=== PATIENT | male | born 1985 | race African-American/Black ===

== ENCOUNTER 2025-01-20 22:19 | Emergency (ER) | payer MEDICAID, OTHER ==
[~2025-01-20] VITALS: Ht 177.8 cm; Wt 104.9 kg
[2025-01-20] MEDS ORDERED: FAMOTIDINE 20 MG TAB PO ONE (23:30)
[2025-01-21 01:00] LABS: Hematocrit 39.4 % (41.0-53.0); Hemoglobin 13.9 g/dL (13.5-17.5); Mean Corpuscular Hemoglobin 33.8 pg (28.0-32.0); Mean Corpuscular Volume 95.8 fL (80.0-100.0)
[2025-01-21 01:13] LABS: Alanine Aminotransferase 48 U/L (7-40); Albumin 3.0 g/dL (3.2-4.8); Alkaline Phosphatase 103 U/L (46-116); Anion Gap 23 (5-15); BUN/Creatinine Ratio 7.2 (10.0-20.0); Bilirubin, Total 3.1 mg/dL (0.2-1.0); Blood Urea Nitrogen 63 mg/dL (9-23); Calcium 8.2 mg/dL (8.7-10.4); Carbon Dioxide 13 mmol/L (20-31); Chloride 96 mmol/L (98-107); Glucose 101 mg/dL (74-106); Potassium 3.6 mmol/L (3.5-5.1); Sodium 132 mmol/L (136-145); Total Protein 9.2 g/dL (5.7-8.2)
[2025-01-21] MEDS: SODIUM CHLORIDE 0.9% 1,000 ML IV ONE (01:21)
[2025-01-21] MEDS: FAMOTIDINE (10MG/ML) 2ML VL IV ONE (01:34)
[2025-01-21] MEDS: ONDANSETRON HCL 4 MG/2 ML VIAL IV ONE (01:35)
[2025-01-21 01:53] LABS: Total Cells Counted 100.0 (100)
--- NOTE | 2025-01-21 02:33 | ED.PDOC ---
HPI Allergic reaction HPI Comments 39-YEAR-OLD MALE PRESENTS TO THE ED CHIEF COMPLAINT RASH X5 DAYS. REPORTS ITCHINESS HAS BEEN TAKING [id number] MEDICATIONS WITH LITTLE RELIEF. PATIENT ALSO STATES DIFFICULTY URINATING. REPORTS COUNTER THE BATHROOM SEVERAL TIMES A DAY WITH ONLY LITTLE OUTPUT. HE DENIES ANY PAST SIGNIFICANT HISTORY. HE DENIES ANY PAIN. REPORTS NO FEVERS CHILLS NAUSEA OR VOMITING. Chief Complaint: Allergic Reaction Time Seen by MD: 23:03 Reviewed Notes: Nurses Notes, Medications, Allergies Allergies: Coded Allergies: NO KNOWN ALLERGIES (Unverified , 01/20/25) Home Meds No Active Prescriptions or Reported Meds Information Source: Patient Mode of Arrival: Ambulatory Past Medical History PAST MEDICAL HISTORY: Denies Surgical History: Denies all surgeries Family History Family History: Reviewed,noncontributory to illness Social History Smoker: Cigarettes, Less Than 1 Pack/Day Alcohol: Denies ETOH Use Drugs: Denies Drug Use Constitutional: denies: chills, diaphoresis, fatigue, fever, malaise, sweats, weakness, others EENTM: denies: blurred vision, double vision, ear bleeding, ear discharge, ear drainage, ear pain, ear ringing, eye pain, eye redness, hearing loss, mouth pain, mouth swelling, nasal discharge, nose bleeding, nose congestion, nose pain, photophobia, tearing, throat pain, throat swelling, voice changes, others Respiratory: denies: cough, hemoptysis, orthopnea, SOB at rest, shortness of breath, SOB with excertion, stridor, wheezing, others Cardiovascular: denies: chest pain, dizzy spells, diaphoresis, Dyspnea on exertion, edema, irregular heart beat, left arm pain, lightheadedness, palpitations, PND, syncope, others Gastrointestinal: denies: abdomen distended, abdominal pain, blood streaked bowels, constipated, diarrhea, dysphagia, difficulty swallowing, hematemesis, melena, nausea, poor appetite, poor fluid intake, rectal bleeding, rectal pain, vomiting, others Genitourinary: reports: dysuria; denies: burning, flank pain, frequency, hematuria, incontinence, penile discharge, penile sore, pain, testicle pain, testicle swelling, urgency, others Neurological: denies: dizziness, fainting, headache, left sided numbness, left sided weakness, numbness, paresthesia, pre-existing deficit, right sided nu mbness, right sided weakness, seizure, speech problems, tingling, tremors, weakness, others Musculoskeletal: denies: back pain, gout, joint pain, joint swelling, muscle pain, muscle stiffness, neck pain, others Integumetry: reports: rash; denies: bruises, change in color, change in hair/nails, dryness, laceration, lesions, lumps, wounds, others Allergic/Immunocompromised: denies: Difficulty Healing, Frequent Infections, H adriana, Itching, others Hematologic/Lymphatic: denies: anemia, blood clots, easy bleeding, easy bruising, swollen glands, others Endocrine: denies: excessive hunger, excessive sweating, excessive thirst, excessive urination, flushing, intolerance to cold, intolerance to heat, unexplained weight gain, unexplained weight loss, others Psychiatric: denies: anxiety, bipolar disorder, depression, hopeless, panic disorder, schizophrenia, sleepless, suicidal, others Physical Exam General Appearance: No Apparent Distress, Normal HEENT: Normal ENT Inspection, Pharynx Normal, TMs Normal Neck: Full Range of Motion, Non-Tender Respiratory: Chest Non-Tender, Lungs Clear, No Accessory Muscle Use, No Respiratory Distress, Normal Breath Sounds Cardiovascular: No Edema, No JVD, No Murmur, No Gallop, Normal Peripheral Pulses, Regular Rate/Rhythm Breast Exam: Deferred Gastrointestinal: No Organomegaly, Non Tender, No Pulsatile Mass, Normal Bowel Sounds, Soft Genitalia: Deferred Pelvic: Deferred Rectal: Deferred Extremities: No calf tenderness, Normal capillary refill, Normal inspection, Normal range of motion, Non-tender, No pedal edema Musculoskeletal : Apperance: Normal Neurologic: Alert, No Motor Deficits, Normal Affect, Normal Mood, No Sensory Deficits Cerebellar Function: Normal Reflexes: Normal Skin: Dry, Normal Color, Rash (DIFFUSE MACULAR RASH NO NOTED EXCORIATIONS OR OPEN LESIONS.), Warm Lymphatic: No Adenopathy Was a procedure done? Was a procedure done?: No Differential diagnosis (all) Differential Diagnosis: Anaphylaxis, Angioedema, Bronchospasm, Renal Failure X-Ray, Labs, Meds, VS Vital Signs Date Time Temp Pulse Resp B/P (MAP) Pulse Ox O2 Delivery O2 Flow Rate FiO2 01/21/25 03:15 97.8 97 16 96/63 (74) 97 97.8 01/21/25 01:21 97.6 95 16 95/51 (66) 97 97.6 01/21/25 01:21 95 16 97 Room Air 01/20/25 22:35 97.6 86 20 111/60 99 97.6 Lab Test 01/21/25 05:04 01/21/25 03:17 01/21/25 00:48 Range/Units Lactic Acid Level 4.9 *H 5.1 *H 0.4-2.0 mmol/L White Blood Count 17.3 H 4.4-10.8 10^3/uL Red Blood Count 4.12 L 4.5-5.90 10^6/uL Hemoglobin 13.9 13.5-17.5 g/dL Hematocrit 39.4 L 41.0-53.0 % Mean Corpuscular Volume 95.8 80.0-100.0 fL Mean Corpuscular Hemoglobin 33.8 H 28.0-32.0 pg Mean Corpuscular Hemoglobin Concent 35.2 32.0-36.0 g/dL Red Cell Distribution Width 14.7 H 11.8-14.3 % Platelet Count 132 L 140-450 10^3/uL Mean Platelet Volume 8.7 6.9-10.8 fL Neutrophils (%) (Auto) 37.0-80.0 % Lymphocytes (%) (Auto) 10.0-50.0 % Monocytes (%) (Auto) 0.0-12.0 % Basophils (%) (Auto) 0.0-2.0 % Neutrophils # (Auto) 1.6-8.6 10 ^3/uL Lymphocytes # (Auto) 0.4-5.4 10 ^3/uL Monocytes # (Auto) 0-1.3 10 ^3/uL Differential Total Cells Counted 100.0 100 Neutrophils % (Manual) 50 37.0-80.0 Band Neutrophils % (Manual) 0 Lymphocytes % (Manual) 26 10.0-50.0 Monocytes % (Manual) 6 0-12 Eosinophils % (Manual) 15 H 0-7 Basophils % (Manual) 0 0.0-2.0 Metamyelocytes % (manual) 2 Myelocytes % (Manual) 1 Promyelocytes % (Manual) 0 Blast Cells % (Manual) 0 Reactive Lymphocytes 0 Platelet Estimate Decreased Large Platelets Few Sodium Level 132 L 136-145 mmol/L Potassium Level 3.6 3.5-5.1 mmol/L Chloride Level 96 L 98-107 mmol/L Carbon Dioxide Level 13 L 20-31 mmol/L Anion Gap 23 H 5-15 Blood Urea Nitrogen 63 H 9-23 mg/dL Creatinine 8.71 H 0.700-1.30 mg/dL Glomerular Filtration Rate Calc 7 >90 mL/min BUN/Creatinine Ratio 7.2 L 10.0-20.0 Serum Glucose 101 74-106 mg/dL Calcium Level 8.2 L 8.7-10.4 mg/dL Total Bilirubin 3.1 H 0.2-1.0 mg/dL Aspartate Amino Transferase (AST) 69 H 13-40 U/L Alanine Aminotransferase (ALT) 48 H 7-40 U/L Alkaline Phosphatase 103 46-116 U/L Total Protein 9.2 H 5.7-8.2 g/dL Albumin 3.0 L 3.2-4.8 g/dL Microbiology Date/Time Source Procedure Growth Status 01/21/25 03:19 Blood Blood Culture - Final NO GROWTH AFTER 5 DAYS OF INCUBATION. Complete 01/21/25 03:10 Blood Blood Culture - Final NO GROWTH AFTER 5 DAYS OF INCUBATION. Complete X-Ray, Labs, Meds, VS Comment COURSE: EXTERNAL MEDICAL RECORDS REVIEWED: [NONE] INDEPENDENT HISTORIANS: [NONE] SOCIAL DETERMINANTS OF HEALTH: [NONE] LABS ORDERED: CBC, CMP, UA, UDS, BLOOD CULTURES, LACTIC ACID REVIEWED AND INTERPRETED RESULTS: PENDING UA AND UDS IMAGING ORDERED: CHEST X-RAY PENDING PROCEDURES PERFORMED: Meadows catheter no output CRITICAL CARE TIME: NONE I HAVE DISCUSSED THE PATIENT WITH THE PATIENT AND HE AGREES WITH PLAN OF CARE AND DISPOSITION. PATIENT PLACED FOR HOSPITALIST FOR ADMISSION DIAGNOSIS; ACUTE RENAL FAILURE SEPSIS LEUKOCYTOSIS Time of 1ST Reevaluation: 23:40 Reevaluation 1ST: Unchanged Time of 2ND Reevaluation: 02:32 Reevaluation 2ND: Unchanged Time of 3RD Reevaluation: 04:16 Reevaluation 3RD: Unchanged Patient Education/Counseling: Diagnosis, Treatment, Prognosis, Need For Follow Up Family Education/Counseling: No Family Present SEPSIS Sepsis Screen Date sepsis recognized/suspect: Jan 20, 2025 Time Sepsis recognized/suspect: 2239 Recent Procedure: No On Antibiotic Therapy: No Respiratory Rate >20: No Heart Rate >90: No Temp<36 C (96.8 F) or >38.3 C: No SBP <90 or MAP <65 mmHG: No New Acute Mental Status Change: No Is the patient on CPAP, BIPAP,: No Physician Orders Insert/Manage Urinary Catheter QSHIFT (01/21/25 00:40) Chest Xray 1 View (01/21/25 04:11) Vital Signs Date Time Temp Pulse Resp B/P (MAP) Pulse Ox O2 Delivery O2 Flow Rate FiO2 01/21/25 03:15 97.8 97 16 96/63 (74) 97 97.8 01/21/25 01:21 97.6 95 16 95/51 (66) 97 97.6 01/21/25 01:21 95 16 97 Room Air 01/20/25 22:35 97.6 86 20 111/60 99 97.6 Laboratory Tests Test 01/21/25 00:48 01/21/25 03:17 01/21/25 05:04 White Blood Count 17.3 10^3/uL (4.4-10.8) H Lactic Acid Level 5.1 mmol/L (0.4-2.0) *H 4.9 mmol/L (0.4-2.0) *H Departure 1 Departure Time of Disposition: 02:32 Impression: Primary Impression: Sepsis Qualified Codes: A41.9 - Sepsis, unspecified organism Additional Impressions: Leukocytosis Qualified Codes: D72.829 - Elevated white blood cell count, unspecified Acute renal failure Qualified Codes: O90.49 - Other acute kidney failure Disposition: 04 [facility] Condition: Stable e-Prescriptions No Active Prescriptions or Reported Meds Discharged With: Self Critical Care Note Critical Care Time?: No Stability Stability form required: ZAYRA Dunne Jan 21, 2025 02:33
[2025-01-21 03:15] VITALS: BP 96/63; PULSE 97; RESP 16; TEMP 97.8; O2SAT 97
[2025-01-21] MEDS ORDERED: SODIUM CHLORIDE 0.9% 1,000 ML IV ONE ×2 (03:45→04:30)
[2025-01-21 04:02] LABS: Lactic Acid w/Reflex 5.1 mmol/L (0.4-2.0)
[2025-01-21] MEDS ORDERED: VANCOMYCIN 1GM/200ML PM 200 ML IV ONE (04:15)
[2025-01-21] MEDS: cefTRIAXone 1GM/50ML D5W 50 ML IV ONE (04:34)
--- NOTE | 2025-01-21 05:07 | DVH ---
CHEST RADIOGRAPH Indication: FEVERS Technique: Single frontal view of the chest was obtained COMPARISON: None FINDINGS: Lines and Tubes: None Lungs: Clear Pleura: No effusion. No pneumothorax. Cardiomediastinal contours: Unremarkable Bones: Unremarkable IMPRESSION: 1. No acute disease.
== END 2025-01-21 07:14 | disposition left against medical advice (07) ==
LOC: ER 22:19
DX: A41.9 Sepsis, unspecified organism (principal); D72.829 Elevated white blood cell count, unspecified; N17.9 Acute kidney failure, unspecified; F17.210 Nicotine dependence, cigarettes, uncomplicated
CPT/HCPCS: 36415; 71045; 80053; 83605; 85007; 85027; 87040; 96361; 96365; 96375; 99284; J0696; J1100; J2405; J3490; J7030

== ENCOUNTER 2025-01-21 11:22 | Inpatient (IN) | payer MEDICAID ==
[~2025-01-21] VITALS: Ht 177.8 cm; Wt 103.5 kg
--- NOTE | 2025-01-21 12:16 | ED.PDOC ---
General HPI Comments 39 y/o M, WILLOW, presents to the ED for CC of urinary. Patient reports, that he has had difficulty urinating and was seen at [facility] yesterday (01/20/25) for SS and had a Meadows catheter placed. During yesterdays visit patient proceeded to cut Meadows Catheter hose off with catheter still in place then AMA'd. At this time patient c/o of additional symptoms of a sore-throat. No other symptoms or modifying factors are present at this time. Chief Complaint: Urinary Time Seen by MD: 12:13 Reviewed notes: Nurses Notes, Stranding Machine Operator Notes, Medications, Allergies Allergies: Coded Allergies: NO KNOWN ALLERGIES (Unverified , 01/20/25) Information Source: Patient, Emergency Med Personnel Mode of Arrival: EMS Severity: Moderate Timing: Days Duration: Since onset Prehospital treatment: None Onset: Spontaneous Symptoms: Inability to void History of: None Location: None Penile discharge: None Modifying factors: None associated signs and symptoms: None Past Medical History PAST MEDICAL HISTORY: Denies Surgical History: Denies all surgeries Family History Family History: Reviewed,noncontributory to illness Social History Smoker: Cigarettes, Less Than 1 Pack/Day Alcohol: Denies ETOH Use Drugs: Denies Drug Use Constitutional: denies: chills, diaphoresis, fatigue, fever, malaise, sweats, weakness, others EENTM: reports: throat pain; denies: blurred vision, double vision, ear bleeding, ear discharge, ear drainage, ear pain, ear ringing, eye pain, eye redness, hearing loss, mouth pain, mouth swelling, nasal discharge, nose bleed ing, nose congestion, nose pain, photophobia, tearing, throat swelling, voice changes, others Respiratory: denies: cough, hemoptysis, orthopnea, SOB at rest, shortness of breath, SOB with excertion, stridor, wheezing, others Cardiovascular: denies: chest pain, dizzy spells, diaphoresis, Dyspnea on exertion, edema, irregular heart beat, left arm pain, lightheadedness, palpitations, PND, syncope, others Gastrointestinal: denies: abdomen distended, abdominal pain, blood streaked bowels, constipated, diarrhea, dysphagia, difficulty swallowing, hematemesis, melena, nausea, poor appetite, poor fluid intake, rectal bleeding, rectal pain, vomiting, others Genitourinary: denies: burning, dysuria, flank pain, frequency, hematuria, incontinence, penile discharge, penile sore, pain, testicle pain, testicle sw elling, urgency, others Neurological: denies: dizziness, fainting, headache, left sided numbness, left sided weakness, numbness, paresthesia, pre-existing deficit, right sided numbness, right sided weakness, seizure, speech problems, tingling, tremors, weakness, others Musculoskeletal: denies: back pain, gout, joint pain, joint swelling, muscle pain, muscle stiffness, neck pain, others Integumetry: denies: bruises, change in color, change in hair/nails, dryness, laceration, lesions, lumps, rash, wounds, others Allergic/Immunocompromised: denies: Difficulty Healing, Frequent Infections, Hives, Itching, others Hematologic/Lymphatic: denies: anemia, blood clots, easy bleeding, easy bruising, swollen glands, others Endocrine: denies: excessive hunger, excessive sweating, excessive thirst, excessive urination, flushing, intolerance to cold, intolerance to heat, unexplained weight gain, unexplained weight loss, others Psychiatric: denies: anxiety, bipolar disorder, depression, hopeless, panic disorder, schizophrenia, sleepless, suicidal, others All Other Systems: Reviewed and Negative Physical Exam General Appearance: No Apparent Distress, Normal, Other (patient unable to form full sentences and has word salad) HEENT: Normal ENT Inspection, Pharynx Normal Neck: Full Range of Motion, Non-Tender, Normal, Normal Inspection Respiratory: Chest Non-Tender, Lungs Clear, No Accessory Muscle Use, No Respiratory Distress, Normal Breath Sounds Cardiovascular: No Edema, No Murmur, No Gallop, Normal Peripheral Pulses, Regular Rate/Rhythm Breast Exam: Deferred Gastrointestinal: No Organomegaly, Non Tender, No Pulsatile Mass, Normal Bowel Sounds, Soft Genitalia: Deferred Pelvic: Deferred Rectal: Deferred Extremities: No calf tenderness, Normal capillary refill, Normal inspection, Normal range of motion, Non-tender, No pedal edema Musculoskeletal : Apperance: Normal Neurologic: Alert, bass viol repairer II-XII nml as Tested, No Motor Deficits, Normal Affect, Normal Mood, No Sensory Deficits Cerebellar Function: Normal Reflexes: Normal Skin: Dry, Normal Color, Warm Lymphatic: No Adenopathy Was a procedure done? Was a procedure done?: No Differential Diagnosis Urinary Problem (Male): Bladder Obstruction, Urinary Retention, Urolithiasis, UTI X-Ray, Labs, Meds, VS Vital Signs Date Time Temp Pulse Resp B/P (MAP) Pulse Ox O2 Delivery O2 Flow Rate FiO2 01/21/25 11:52 98.3 99 18 106/65 96 98.3 Lab Test 01/21/25 13:17 Range/Units White Blood Count 21.8 #H 4.4-10.8 10^3/uL Red Blood Count 3.74 L 4.5-5.90 10^6/uL Hemoglobin 12.2 L 13.5-17.5 g/dL Hematocrit 35.9 L 41.0-53.0 % Mean Corpuscular Volume 96.0 80.0-100.0 fL Mean Corpuscular Hemoglobin 32.6 H 28.0-32.0 pg Mean Corpuscular Hemoglobin Concent 34.0 32.0-36.0 g/dL Red Cell Distribution Width 15.0 H 11.8-14.3 % Platelet Count 116 L 140-450 10^3/uL Mean Platelet Volume 8.9 6.9-10.8 fL Neutrophils (%) (Auto) 37.0-80.0 % Lymphocytes (%) (Auto) 10.0-50.0 % Monocytes (%) (Auto) 0.0-12.0 % Basophils (%) (Auto) 0.0-2.0 % Neutrophils # (Auto) 1.6-8.6 10 ^3/uL Lymphocytes # (Auto) 0.4-5.4 10 ^3/uL Monocytes # (Auto) 0-1.3 10 ^3/uL Differential Total Cells Counted Pending Neutrophils % (Manual) Pending Band Neutrophils % (Manual) Pending Lymphocytes % (Manual) Pending Monocytes % (Manual) Pending Eosinophils % (Manual) Pending Basophils % (Manual) Pending Metamyelocytes % (manual) Pending Myelocytes % (Manual) Pending Promyelocytes % (Manual) Pending Blast Cells % (Manual) Pending Reactive Lymphocytes Pending Platelet Estimate Pending Sodium Level Pending Potassium Level Pending Chloride Level Pending Carbon Dioxide Level Pending Anion Gap Pending Blood Urea Nitrogen Pending Creatinine Pending Glomerular Filtration Rate Calc Pending BUN/Creatinine Ratio Pending Serum Glucose Pending Calcium Level Pending [facility] [id number] [facility] [id number] Ph: [phone] DIAGNOSTIC IMAGING Diagnostic Imaging Report : [id number] Signed PATIENT: BRITTNEY WEBBERACCT: [id number] UNIT: [id number] : 1985 LOC: ER ROOM / BED: / AGE / SEX: 39 / M ADM STATUS: REG ER SERVICE 1210 ORDERING PHYSICIAN: JOSE DELANEY MD PROCEDURE(s): CXRP - CHEST PORTABLE REASON: fever ORDER NUMBER(s): [id number], ACCESSION NUMBER(s): [id number] CHEST RADIOGRAPH Indication: fever Technique: Single frontal view of the chest was obtained COMPARISON: XY CHEST XRAY 1 VIEW on DOS: 01/21/25 FINDINGS: Lines and Tubes: None Lungs: Mild congestion Pleura: No effusion. No pneumothorax. Cardiomediastinal contours: Unremarkable Bones: Unremarkable IMPRESSION: Mild increased interstitial prominence may represent mild viral pneumonia. ATED BY: JAMIE MARQUEZ MD DICTATED DATE/TIME: 01/21/251254 SIGNED BY: JAMIE MARQUEZ MD SIGNED DATE/TIME: 01/21/251254 CC: Time of 1ST Reevaluation: 12:43 Reevaluation 1ST: Unchanged Patient Education/Counseling: Diagnosis, Treatment Family Education/Counseling: No Family Present SEPSIS Sepsis Screen Date sepsis recognized/suspect: Jan 21, 2025 Time Sepsis recognized/suspect: 1120 Recent Procedure: No On Antibiotic Therapy: No Respiratory Rate >20: No Heart Rate >90: Yes Temp<36 C (96.8 F) or >38.3 C: No SBP <90 or MAP <65 mmHG: No New Acute Mental Status Change: No Is the patient on CPAP, BIPAP,: No Physician Orders Basic Metabolic Panel (01/21/25 12:10) Complete Blood Count (01/21/25 12:10) Urinalysis (01/21/25 12:10) Chest Portable (01/21/25 12:10) Manual Differential (01/21/25 13:17) Vital Signs Date Time Temp Pulse Resp B/P (MAP) Pulse Ox O2 Delivery O2 Flow Rate FiO2 01/21/25 11:52 98.3 99 18 106/65 96 98.3 Laboratory Tests Test 01/21/25 13:17 White Blood Count 21.8 10^3/uL (4.4-10.8) #H Critical Care Note Critical Care Time?: No Stability Stability form required: No Heart Score Heart Score: Heart Score Response (Comments) Value History N/A 0 EKG N/A 0 Age N/A 0 Risk Factors N/A 0 Troponin N/A 0 Total 0 I personally scribed for JOSE DELANEY MD ([email or web address]) on 01/21/25 at 12:16. Electronically submitted by Emily Mims ([employer]). I personally scribed for JOSE DELANEY MD ([email or web address]) on 01/21/25 at 12:24. Electronically submitted by Eimly Mims ([employer]). I personally scribed for JOSE DELANEY MD ([email or web address]) on 01/21/25 at 13:47. Electronically submitted by Emily Mims ([employer]). JOSE DELANEY MD Jan 21, 2025 12:16
--- NOTE | 2025-01-21 12:57 | DVH ---
CHEST RADIOGRAPH Indication: fever Technique: Single frontal view of the chest was obtained COMPARISON: XY CHEST XRAY 1 VIEW on DOS: 01/21/25 FINDINGS: Lines and Tubes: None Lungs: Mild congestion Pleura: No effusion. No pneumothorax. Cardiomediastinal contours: Unremarkable Bones: Unremarkable IMPRESSION: Mild increased interstitial prominence may represent mild viral pneumonia.
[2025-01-21 13:43] LABS: Hematocrit 35.9 % (41.0-53.0); Hemoglobin 12.2 g/dL (13.5-17.5); Mean Corpuscular Hemoglobin 32.6 pg (28.0-32.0); Mean Corpuscular Volume 96.0 fL (80.0-100.0)
[2025-01-21 13:48] LABS: Potassium 4.3 mmol/L (3.5-5.1)
[2025-01-21 13:49] LABS: Anion Gap 20 (5-15)
[2025-01-21 13:53] LABS: Calcium 7.4 mg/dL (8.7-10.4); Carbon Dioxide 14 mmol/L (20-31); Chloride 98 mmol/L (98-107); Sodium 132 mmol/L (136-145)
[2025-01-21 13:54] LABS: BUN/Creatinine Ratio 8.8 (10.0-20.0)
[2025-01-21 14:00] LABS: Glucose 141 mg/dL (74-106)
[2025-01-21 14:05] LABS: Blood Urea Nitrogen 84 mg/dL (9-23)
[2025-01-21 14:33] LABS: Nucleated Red Blood Cells % 1.0 %; Total Cells Counted 100.0 (100)
--- NOTE | 2025-01-21 15:47 | DVH ---
CT CT AB PEL WO CON-NO ORAL OR IV INDICATION: abdominal pain EXAM DATE: 01/21/2025 03:11 PM COMPARISON: None RADIATION DOSE: CTDIvol: 20.14 mGy, DLP: 1260.84 mGy*cm PROCEDURE: Helical CT images were obtained of the abdomen and pelvis without IV contrast Sagittal and coronal reconstructions are provided. ORAL CONTRAST: None. ADDITIONAL IMAGES / REFORMATS: None All C T scans at this medical facility are performed using dose modulation techniques as appropriate to a p erformed exam including the following: Automated exposure control was utilized; adjustment of the MA and/or KV according to patient size; and use of iterative reconstruction technique. FINDINGS: LUNG BASE: Normal. LIVER: Severe hepatic steatosis. GALLBLADDER AND BILIARY TREE: No calcified gallstones. Normal caliber wall. No intra- or extrahepatic biliary ductal dilation. PANCREAS: Normal. SPLEEN: Normal. BOWEL: Mild colonic diverticulosis. Normal appendix. ADRENALS: Normal. KIDNEYS AND URETER: Punctate nonobstructive left kidney stone. BLADDER: Meadows in the bladder. REPRODUCTIVE ORGANS: Normal. LYMPH NODES:No lymphadenopathy. PERITONEUM: No ascites or free air. No other fluid collection. VESSELS: Scattered atherosclerotic calcifications are noted. RETROPERITONEUM: Retroperitoneal, pelvic side wall, inguinal lymphadenopathy. ABDOMINAL WALL: Normal. BONES: Scattered osseous degenerative changes are noted. IMPRESSION: Severe hepatic steatosis. Retroperitoneal, pelvic side wall, inguinal lymphadenopathy. Lymphoma is a consideration. Punctate nonobstructive left kidney stone.
[2025-01-21] MEDS ORDERED: DOCUSATE SOD 100 MG CAP PO PRN (16:15)
[2025-01-21] MEDS ORDERED: VANCOMYCIN PER PHARMACY 0 MG IV SCH (16:15)
[2025-01-21] MEDS ORDERED: ACETAMINOPHEN 325 MG TAB PO PRN (16:15)
[2025-01-21] MEDS ORDERED: ONDANSETRON HCL 4 MG/2 ML VIAL IV PRN (16:15)
[2025-01-21] MEDS: SODIUM CHLORIDE 0.9% 1,000 ML IV ONE (16:31)
--- NOTE | 2025-01-21 17:20 | DVHHP2 ---
History of Present Illness Reason for Visit: Acute renal failure History of Present Illness The patient is a 39-year-old male who denies past medical history presented to [facility] ED with complaint of anuric, throat, and mouth pain. Patient reports he has been having difficulty urinating, seen here at [facility] yester day for same symptoms, had a Meadows catheter placed, but patient cut Meadows Catheter hose off with catheter still in place then AMA'd. Patient was seen and evaluated in the ED, laboratory data shows WBC 21.8, platelets 116, sodium 132, potassium 4.3, BUN 84, creatinine 9.56, GFR seven, glucose 141, anion gap 20, calcium 7.4, blood pressure 106/65, heart rate 99, temperature 98.3 F, O2 saturation 96% on room air. Chest x-ray revealing mild increased interstitial prominence may represent mild viral pneumonia;, abdomen/pelvis CT revealing severe hepatic steatosis, punctate nonobstructive left kidney stone; retroperitoneal, pelvic side wall, inguinal lymphadenopathy, lymphoma is a consideration. Patient was started on IV antibiotic regimen vancomycin, please see medication orders section in the computer. On my assessment, patient denied chest pain, no headache, no dizziness, no diaphoresis, no shortness of breath, no nausea, no vomiting, no fever, no chills. Patient was admitted for further evaluation and medical management. Past Medical History Denies past medical history Past Surgical History Denies all surgeries Family History Reviewed, noncontributory to the management of this case. Past Social History Patient lives at home, smokes cigarettes less than 1 pack per day, denies alcohol or illicit drugs abuse. Review of Systems Constitutional: Yes: Weakness; No: Fever, Chills, Sweats, Malaise, Other Eyes: No: Pain, Vision change, Conjunctivae inflammation, Eyelid inflammation, Other, Redness ENT: Throat pain, Other (Mouth pain); No: Ear pain, Ear discharge, Nose pain, Nose discharge, Nose congestion, Mouth pain, Mouth swelling, Throat swelling Respiratory: No: Cough, Dry, Shortness of breath, SOB with excertion, Wheezing, Hemoptysis, Pleuritic Pain, Sputum, Wheezing, Other Cardiovascular: No: Chest Pain, Palpitations, Orthopnea, Paroxysmal Noc. Dyspnea, Edema, Lt Headedness, Other Gastrointestinal: No: Nausea, Vomiting, Abdominal Pain, Diarrhea, Constipation, Melena, Hematochezia, Other Genitourinary: No Dysuria, No Frequency, No Incontinence, No Hematuria, No Retention; Other (Anuric) Musculoskeletal: No: other, neck pain, shoulder pain, arm pain, back pain, hand pain, leg pain, foot pain Skin: No: Rash, Lesions, Jaundice, Bruising, Other Neurological: No: Weakness, Numbness, Incoordination, Change in speech, Confusion, Seizures, Other Allergies: Coded Allergies: NO KNOWN ALLERGIES (Unverified , 01/20/25) Medications Current Medications Medications Dose Ordered Sig/Nghia Route Start Time Stop Time Status Last Admin Dose Admin Azithromycin 250 ml @ 125 mls/hr DAILY IV 01/22/25 10:00 Vancomycin HCl 0 ml @ 0 mls/hr UD IV 01/21/25 16:15 Multivit/Ca Carb/ B Cmplx/FA/Prenat 1 tab DAILY PO 01/22/25 10:00 Sodium Chloride 10 ml Q8HR IV 01/21/25 22:00 Acetaminophen/ Hydrocodone Bitart 1 tab Q4HP PRN PO 01/21/25 16:15 Ondansetron HCl 4 mg Q4HP PRN IV 01/21/25 16:15 Docusate Sodium 100 mg BIDPRN PRN PO 01/21/25 16:15 Acetaminophen 650 mg Q6HP PRN PO 01/21/25 16:15 Exam Vital Signs Vital Signs Date Time Temp Pulse Resp B/P (MAP) Pulse Ox O2 Delivery O2 Flow Rate FiO2 01/21/25 11:52 98.3 99 18 106/65 96 98.3 General Appearance: Alert, Oriented X3, Cooperative, No acute distress HEENT: Atraumatic, PERRLA, EOMI, Mucous membr. moist/pink Respiratory: Normal air movement, Other (Diminished breath sounds) Cardiovascular: Regular rate, Normal S1, Normal S2, No murmurs Abdominal: Normal bowel sounds, Soft, No tenderness, No hepatospenomegaly, No masses Extremities: No clubbing, No cyanosis, No edema, Normal pulses, No tenderness /swelling Skin: No rashes, No breakdown, No significant lesion Neuro: Normal speech, Normal tone, Sensation intact, Cranial nerves 3-12 NL, Reflexes 2+, Other (Generalized weakness) Psych/Mental Status: Mental status NL, Mood NL Labs/Xrays Labs Test 01/21/25 16:48 01/21/25 13:17 Range/Units White Blood Count 21.8 #H 4.4-10.8 10^3/uL Red Blood Count 3.74 L 4.5-5.90 10^6/uL Hemoglobin 12.2 L 13.5-17.5 g/dL Hematocrit 35.9 L 41.0-53.0 % Mean Corpuscular Volume 96.0 80.0-100.0 fL Mean Corpuscular Hemoglobin 32.6 H 28.0-32.0 pg Mean Corpuscular Hemoglobin Concent 34.0 32.0-36.0 g/dL Red Cell Distribution Width 15.0 H 11.8-14.3 % Platelet Count 116 L 140-450 10^3/uL Mean Platelet Volume 8.9 6.9-10.8 fL Neutrophils (%) (Auto) 37.0-80.0 % Lymphocytes (%) (Auto) 10.0-50.0 % Monocytes (%) (Auto) 0.0-12.0 % Basophils (%) (Auto) 0.0-2.0 % Neutrophils # (Auto) 1.6-8.6 10 ^3/uL Lymphocytes # (Auto) 0.4-5.4 10 ^3/uL Monocytes # (Auto) 0-1.3 10 ^3/uL Differential Total Cells Counted 100.0 100 Neutrophils % (Manual) 55 37.0-80.0 Band Neutrophils % (Manual) 3 Lymphocytes % (Manual) 15 10.0-50.0 Monocytes % (Manual) 6 0-12 Eosinophils % (Manual) 17 H 0-7 Basophils % (Manual) 0 0.0-2.0 Metamyelocytes % (manual) 0 Myelocytes % (Manual) 2 Promyelocytes % (Manual) 2 Blast Cells % (Manual) 0 Nucleated Red Blood Cells 1.0 % Reactive Lymphocytes 0 Platelet Estimate Decreased Sodium Level 132 L 136-145 mmol/L Potassium Level 4.3 3.5-5.1 mmol/L Chloride Level 98 98-107 mmol/L Carbon Dioxide Level 14 L 20-31 mmol/L Anion Gap 20 H 5-15 Blood Urea Nitrogen 84 #*H 9-23 mg/dL Creatinine 9.56 H 0.700-1.30 mg/dL Glomerular Filtration Rate Calc 7 >90 mL/min BUN/Creatinine Ratio 8.8 L 10.0-20.0 Serum Glucose 141 H 74-106 mg/dL Hemoglobin A1c 5.2 <5.7 % A1C Calcium Level 7.4 L 8.7-10.4 mg/dL PATIENT: BRITTNEY WEBBERACCT: [id number] UNIT: [id number] : 1985 LOC: ER ROOM / BED: / AGE / SEX: 39 / M ADM STATUS: REG ER SERVICE 1503 ORDERING PHYSICIAN: JOSE DELANEY MD PROCEDURE(s): ABPL - CT AB PEL WO CON-NO ORAL OR IV REASON: abdominal pain ORDER NUMBER(s): [id number], ACCESSION NUMBER(s): [id number] CT CT AB PEL WO CON-NO ORAL OR IV INDICATION: abdominal pain EXAM DATE: 01/21/2025 03:11 PM COMPARISON: None RADIATION DOSE: CTDIvol: 20.14 mGy, DLP: 1260.84 mGy*cm PROCEDURE: Helical CT images were obtained of the abdomen and pelvis without IV contrast Sagittal and coronal reconstructions are provided. ORAL CONTRAST: None. ADDITIONAL IMAGES / REFORMATS: None All CT scans at this medical facility are performed using dose modulation techniques as appropriate to a performed exam including the following: Automated exposure control was utilized; adjustment of the MA and/or KV according to patient size; and use of iterative reconstruction technique. FINDINGS: LUNG BASE: Normal. LIVER: Severe hepatic steatosis. GALLBLADDER AND BILIARY TREE: No calcified gallstones. Normal caliber wall. No intra- or extrahepatic biliary ductal dilation. PANCREAS: Normal. SPLEEN: Normal. BOWEL: Mild colonic diverticulosis. Normal appendix. ADRENALS: Normal. KIDNEYS AND URETER: Punctate nonobstructive left kidney stone. BLADDER: Meadows in the bladder. REPRODUCTIVE ORGANS: Normal. LYMPH NODES:No lymphadenopathy. PERITONEUM: No ascites or free air. No other fluid collection. VESSELS: Scattered atherosclerotic calcifications are noted. RETROPERITONEUM: Retroperitoneal, pelvic side wall, inguinal lymphadenopathy. ABDOMINAL WALL: Normal. BONES: Scattered osseous degenerative changes are noted. IMPRESSION: Severe hepatic steatosis. Retroperitoneal, pelvic side wall, inguinal lymphadenopathy. Lymphoma is a consideration. Punctate nonobstructive left kidney stone. ORDERING PHYSICIAN: JOSE DELANEY MD PROCEDURE(s): CXRP - CHEST PORTABLE REASON: fever ORDER NUMBER(s): [id number], ACCESSION NUMBER(s): [id number] CHEST RADIOGRAPH Indication: fever Technique: Single frontal view of the chest was obtained COMPARISON: XY CHEST XRAY 1 VIEW on DOS: 01/21/25 FINDINGS: Lines and Tubes: None Lungs: Mild congestion Pleura: No effusion. No pneumothorax. Cardiomediastinal contours: Unremarkable Bones: Unremarkable IMPRESSION: Mild increased interstitial prominence may represent mild viral pneumonia. SEPSIS Sepsis Screen Date sepsis recognized/suspect: Jan 21, 2025 Time Sepsis recognized/suspect: 1119 Recent Procedure: No On Antibiotic Therapy: No Respiratory Rate >20: No Heart Rate >90: Yes Temp<36 C (96.8 F) or >38.3 C: No SBP <90 or MAP <65 mmHG: No New Acute Mental Status Change: No Is the patient on CPAP, BIPAP,: No Physician Orders Urinalysis (01/21/25 12:10) Chest Portable (01/21/25 12:10) Ct Ab Pel Wo Con-No Oral Or Iv (01/21/25 15:03) Lactic Acid W/ Reflex Order (01/21/25 16:15) Azithromycin 500mg/ 250ml (Zithromax 50 (01/22/25 10:00) Vancomycin Per Pharmacy (01/21/25 16:15) B-Complex W/ C & Folic Tablet (Nephro-Vi (01/22/25 10:00) *[facility] (01/21/25 16:15) Allergies (01/21/25 16:15) Code Status (01/21/25 16:15) Renal Standard(2gna,3gk,Lopho) (01/21/25 Dinner) Sodium Chloride Lock (Saline Lock Ns) (01/21/25 22:00) Oxygen Per Hour (01/21/25 16:15) Hydrocodone-Acet 5/325mg Tab ([place] 5/32 (01/21/25 16:15) Ondansetron Hcl (Zofran) (01/21/25 16:15) Docusate Sodium Capsule (Colace Capsule) (01/21/25 16:15) Complete Blood Count (01/22/25 04:00) Comprehensive Metabolic Panel (01/22/25 04:00) Condition: Serious (01/21/25 16:15) Acetaminophen Tablet (Tylenol Tablet) (01/21/25 16:15) Bedrest With Bathroom Privileg (01/21/25 16:15) Sequential Compression Device (01/21/25 ) Vancomycin,Random (01/22/25 04:00) Vital Signs Date Time Temp Pulse Resp B/P (MAP) Pulse Ox O2 Delivery O2 Flow Rate FiO2 01/21/25 11:52 98.3 99 18 106/65 96 98.3 Laboratory Tests Test 01/21/25 13:17 01/21/25 16:48 White Blood Count 21.8 10^3/uL (4.4-10.8) #H Lactic Acid Level Pending Medications Medications Dose Ordered Sig/Nghia Route Start Time Stop Time Status Last Admin Dose Admin Sodium Chloride 1,000 ml @ 1,000 mls/hr Q1H ONCE IV 01/21/25 15:15 01/21/25 16:14 DC 01/21/25 16:31 1,000 MLS/HR Assessment/Plan Assessment/Plan Acute renal failure Leukocytosis, unspecified Electrolyte imbalance Pneumonia, unspecified organism Generalized weakness Plan 1. Admit to telemetry unit 2. Breathing treatment 3. Pain control management 4. IV antibiotic management 5. Management of fluids and electrolytes 6. Consultation for Nephrology 7. Diagnostic test abdomen/pelvis CT 8. DVT prophylaxis on SCDs 9. Repeat labs CBC, CMP in a.m. 10. Continue with current medical management 11. Treatment plan discussed with patient/mother and RN. Patient/mother verb alized understanding. Plan discussed with: Patient (/mother), Other (RN) My Orders Orders - MEMO BUSH DNP Procedure Category Date Status Time Lactic Acid W/ Reflex LAB 01/21/25 In Process Order 16:15 Azithromycin 500mg/ PHA 01/22/25 In Process 250ml (Zithromax 50 10:00 Vancomycin Per PHA 01/21/25 In Process Pharmacy 16:15 B-Complex W/ C & PHA 01/22/25 In Process Folic Tablet 10:00 *[facility] CONS 01/21/25 Transmitted -[place] 16:15 Allergies WILNER 01/21/25 In Process 16:15 Code Status CODE 01/21/25 Transmitted 16:15 Renal DIET 01/21/25 Transmitted Standard(2gna,3gk,Lopho) Dinner Sodium Chloride Lock PHA 01/21/25 In Process (Saline Lock Ns) 22:00 Oxygen Per Hour RT 01/21/25 Transmitted 16:15 Hydrocodone-Acet PHA 01/21/25 In Process 5/325mg Tab ([place] 16:15 Ondansetron Hcl PHA 01/21/25 In Process (Zofran) 16:15 Docusate Sodium PHA 01/21/25 In Process Capsule (Colace 16:15 Complete Blood Count LAB 01/22/25 Verified 04:00 Comprehensive LAB 01/22/25 Verified Metabolic Panel 04:00 Condition: Serious WILNER 01/21/25 In Process 16:15 Acetaminophen Tablet PHA 01/21/25 In Process (Tylenol Tablet) 16:15 Bedrest With Bathroom WILNER 01/21/25 In Process Privileg 16:15 Sequential WILNER 01/21/25 In Process Compression Device Vancomycin,Random LAB 01/22/25 Verified 04:00 Problem List: (1) Acute renal failure (2) Leukocytosis, unspecified (3) Electrolyte imbalance (4) Pneumonia, unspecified organism (5) Generalized weakness Date of Service: Jan 21, 2025 Billing Provider: MEMO BUSH DNP Common Visit Codes: [id number] INP/OBS CARE (HIGH) MEMO BUSH DNP Jan 21, 2025 17:20
[2025-01-21 17:27] LABS: Lactic Acid w/Reflex 2.7 mmol/L (0.4-2.0)
[2025-01-21] MEDS ORDERED: NITROGLYCERIN 0.4 MG SL TAB SL PRN (17:30)
[2025-01-21] MEDS: VANCOMYCIN 1GM/250ML KIT 250 ML IV ONE (18:05)
[2025-01-21 19:56] VITALS: PULSE 87; RESP 16; O2SAT 100
[2025-01-21 20:20] LABS: Urine Amorphous Crystal FEW /hpf (None Seen); Urine Protein, UAD 2+ (Negative)
[2025-01-21] MEDS: CALCIUM GLUC 1,000mg/50ml-NS 50 ML IV ONE (21:09)
[2025-01-21] MEDS: CEFEPIME 2GM/50ML NS 50 ML IV ONE (21:12)
[2025-01-21] MEDS: SODIUM CHLOR 0.9% PF (SALINE LOCK) 10ML VIAL/SYR IV SCH (22:03)
[2025-01-22] VITALS (8 sets, daily range): BP systolic 134–149; BP diastolic 94–99; PULSE 63–81; RESP 17–23; TEMP 97.1–98.8; O2SAT 97–99
[2025-01-22] MEDS: AZITHROMYCIN 500MG/ 250ML 250 ML IV SCH (09:38)
[2025-01-22] MEDS: B-COMPLEX W/ C & FOLIC ACID(NEPHROVITE TAB) PO SCH (09:38)
--- NOTE | 2025-01-22 10:40 | DVH ---
US KIDNEY HISTORY: Ori vs CKD, rule out hydronephorsis COMPARISON: None TECHNIQUE: Transverse and longitudinal grayscale and color doppler images were obtained of the kidney s and bladder. FINDINGS: Right kidney: Size: 12.1 cm Cortical thickness: Normal Echogenicity: Normal Stones: None Masses: None Hydronephrosis: None Ureters: Not well visualized. Other: None Left kidney: Size: 12.5 cm Cortical thickness: Normal Echogenicity: Normal Stones: 0.8 cm nonobstructive left kidney stone. Masses: None Hydronephrosis: None Ureters: Not well visualized. Other: None Bladder: Meadows. Other: None. IMPRESSION: 0.8 cm nonobstructive left kidney stone.
[2025-01-22 11:15] LABS: Alanine Aminotransferase 36 U/L (7-40); Alkaline Phosphatase 80 U/L (46-116); Anion Gap 19 (5-15); BUN/Creatinine Ratio 9.3 (10.0-20.0); Potassium 4.0 mmol/L (3.5-5.1)
[2025-01-22 11:18] LABS: Albumin 2.7 g/dL (3.2-4.8); Bilirubin, Total 2.5 mg/dL (0.2-1.0); Calcium 7.5 mg/dL (8.7-10.4); Carbon Dioxide 13 mmol/L (20-31); Chloride 97 mmol/L (98-107); Glucose 175 mg/dL (74-106); Hematocrit 33.6 % (41.0-53.0); Hemoglobin 11.6 g/dL (13.5-17.5); Mean Corpuscular Hemoglobin 33.3 pg (28.0-32.0); Mean Corpuscular Volume 97.0 fL (80.0-100.0); Sodium 129 mmol/L (136-145); Total Protein 8.8 g/dL (5.7-8.2)
[2025-01-22 11:19] LABS: Blood Urea Nitrogen 95 mg/dL (9-23); Uric Acid 19.5 mg/dL (3.7-9.2)
[2025-01-22] MEDS: SODIUM CHLORIDE 0.9% 1,000 ML IV ONE (11:40)
[2025-01-22 12:58] LABS: Total Cells Counted 100.0 (100)
--- NOTE | 2025-01-22 14:50 | DVH ---
PROCEDURE: Ultrasound-guided biopsy Procedural Personnel Attending physician(s): Brannon Lisa Fellow physician(s): None Resident physician(s): None Advanced practice provider(s): None Procedure Date (/dd/yyyy): 01/22/2025 Pre-procedure diagnosis: Lymphadenopathy Post-procedure diagnosis: Same Indication: Histopathologic diagnosis and molecular characterization Previous biopsy of same target: No Additional clinical history: None Complications: No immediate complications. IMPRESSION: Ultrasound-guided biopsy of left inguinal lymph node. Plan: Specimen(s) sent for evaluation. PROCEDURE SUMMARY: - Percutaneous US-guided core needle biopsy - Additional procedure(s): None PROCEDURE DETAILS: Pre-procedure Reference imaging for biopsy target: Ct abd/pel 01/21/25 Consent: Informed consent for the procedure including risks, benefits and alternatives was obtained a nd time-out was performed prior to the procedure. Preparation: The site was prepared and draped using maximal sterile barrier technique including cutan eous antisepsis. Anesthesia/sedation Level of anesthesia/sedation: No sedation Anesthesia/sedation administered by: Not applicable Total intra-service sedation time (minutes): 0 Imaging prior to biopsy The patient was positioned supine. Initial imaging was performed. Biopsy target: - Organ or target location: Lymph Node - Laterality: Left - Maximal diameter (cm): 3.2 Other findings: None Biopsy Local anesthesia was administered. Under US guidance, the biopsy needle was advanced to the target an d biopsy was performed. Coaxial needle: None Core needle biopsy device: Attentioince Core needle size: 18 gauge Number of core specimens: 4 Fine needle aspiration device: na Fine needle size: Not applicable Number of FNA specimens: Not applicable On-site assessment of biopsy adequacy: No Additional sampling recommendations: None Preliminary assessment of sample adequacy: Not applicable Needle removal The biopsy needle was removed and a sterile dressing was applied. Tract embolization: None Imaging following biopsy Immediate post-biopsy ultrasound was performed. Post-biopsy imaging findings: no significant hemorrhage Additional Details Additional description of procedure: None Registry event: V/3/g Device used: None Equipment details: None Unique Device Identifiers: Not available Specimens removed: Biopsy samples as detailed above Estimated blood loss (mL): Less than 10 Standardized report: [email or web address] Attestation Signer name: Brannon Lisa I attest that I was present for the entire procedure. I reviewed the stored images and agree with the report as written.
--- NOTE | 2025-01-22 15:57 | DVHPNRES ---
Progress Note Date Seen: Jan 22, 2025 Resident Creating Document: CONSTANTINO GREENWOOD RESIDENT Medical Necessity Reason Pt with a Central, PICC or Fol: Yes The following are medically ne: Kaplan Catheter Reason for kaplan catheter: Bladder Retention/Obstruc, Strict I&O Subjective Review of Systems Patient is a 39-year-old male who denies any past medical history, presented to the ED with chief complaints of inability to urinate, shortness of breath mouth crusting, pain. He reported that he had difficulty urinating and was here 2 days ago with similar symptoms and had a Kaplan catheter placed but left AMA after. Patient was started on IV antibiotic vancomycin. past surgical history; denies Family history: liver cancer in father, breast cancer in grandmother personal history: patient smokes 2 cigarettes per day, drinks socially, uses marijuana, meth in the past, patient has prior STDs 2 years ago, he has unprotected sex with 1 partner 01/22/2025 Patient seen at bedside. Patient appears alert x3, in no distress, he complained of shortness of breath, unable to pee for 5 days bleeding and crusting of his lips with pain, pruritic rash which started in his wrists and progress to his arms , and in his legs. Patient did complain of night sweats, fevers, chills since 1 week. He also complained of white discharge from his penis, Since 1 month. Patient has diffuse lymphadenopathy. STD panel was ordered, radiologist was consulted for possible lymph node biopsy. Nephrology was consulted for possible dialysis. renal ultrasound 0.8 cm nonobstructive left kidney stone. Abdominal CT shows Severe hepatic steatosis., Retroperitoneal, pelvic side wall, inguinal lymphadenopathy. Lymphoma is a consideration., Punctate nonobstructive left kidney stone. Urinalysis shows positive signs of UTI. Objective vital signs Vital Sign Date Time Temp Pulse Resp B/P (MAP) Pulse Ox O2 Delivery O2 Flow Rate FiO2 01/22/25 13:00 98.0 81 18 142/94 (110) 98 98.0 01/22/25 08:00 Room Air* 0 21 Total Intake and Output 01/21/25 01/21/25 01/22/25 15:00 23:00 07:00 Intake Total 100 ml 0 ml Balance 100 ml 0 ml medications Current Medications Medications Dose Ordered Sig/Nghia Route Start Time Stop Time Status Last Admin Dose Admin Azithromycin 250 ml @ 125 mls/hr DAILY IV 01/22/25 10:00 01/22/25 09:38 125 MLS/HR Multivit/Ca Carb/ B Cmplx/FA/Prenat 1 tab DAILY PO 01/22/25 10:00 01/22/25 09:38 1 TAB Sodium Chloride 10 ml Q8HR IV 01/21/25 22:00 01/22/25 05:51 10 ML Acetaminophen/ Hydrocodone Bitart 1 tab Q4HP PRN PO 01/21/25 16:15 Ondansetron HCl 4 mg Q4HP PRN IV 01/21/25 16:15 Docusate Sodium 100 mg BIDPRN PRN PO 01/21/25 16:15 Acetaminophen 650 mg Q6HP PRN PO 01/21/25 16:15 Nitroglycerin 0.4 mg Q5MINP PRN SL 01/21/25 17:30 Morphine Sulfate 2 mg Q30M PRN IV 01/21/25 17:30 Examination General: Patient alert and oriented in person, place and time. Patient following commands. HEENT: Normocephalic, atraumatic, moist mucous membranes, diffuse lymphadenopathy Respiratory/pulmonary: Clear lungs bilaterally, vesicular murmurs present in almost all lung mckinney, no associated crackles or wheezes. Cardiovascular: Normal heart sounds S1 and S2 with no associated murmurs Abdomen: Abdomen nondistended, there is no pain to palpation in any of the abdominal quadrants, no palpable masses. Extremities: There is no peripheral edema present at the lower extremities. Peripheral Pulses: 3+ Radial (R). 3+ Radial (L). 3+ Dorsalis pedis (R). 3+ Dorsalis pedis(L) Skin: Rashes on bilateral arms and legs, with pruritus Neurological: Intact cranial nerves with no focal neurologic deficits laboratory and microbiology Laboratory Tests 01/22/25 10:19 Test 01/22/25 10:19 Range/Units Serum Glucose 175 H 74-106 mg/dL Problem List/Assessment/Plan Problem List/Assessment/Plan # generalized lymphadenopathy due to possible lymphoma/HIV/viral syndrome # possible tumor lysis syndrome # rule out possible Kaposi sarcoma vs HIV -IR consulted for possible lymph node biopsy -azithromycin - [place] -multivitamin # sepsis due to UTI # Acute complicated UTI # 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 # Anuria # hyperuricemia # hypophosphatemia - - patient has Kaplan catheter with minimal urine - nephrology consulted for possible dialysis # rule out STI # unsafe sexual practices - ordered hepatitis-B, hepatitis-C, HIV, syphilis, CMV, EBV # polysubstance abuse disorder - patient counseled on risks of using drugs, cigarettes, alcohol for more than 17 minutes Goals of care addressed with the patient for more than 27 minutes: Full code status Case discussed with , patient and nurse Plan discussed with: Patient My Orders My Orders Orders - CONSTANTINO GREENWOOD Procedure Category Date Status Time Reticulocyte Count LAB 01/22/25 In Process 09:03 Valderrama Stain Slide LAB 01/22/25 In Process 09:03 Kidney US 01/22/25 Resulted 09:03 Urine Sodium LAB 01/22/25 Logged 09:03 Urine LAB 01/22/25 Logged Protein/Creatinine Hepatitis C Antibody LAB 01/22/25 In Process 09:03 Hepatitis B Surface LAB 01/22/25 In Process Antigen 09:03 Ebv Acute Infection LAB 01/22/25 In Process Antibodies 09:03 Chlamydia/Gc LAB 01/22/25 Verified Amplification 10:39 Date of Service: Jan 22, 2025 Billing Provider: FLOR SIMMONS MD Common Visit Codes: [id number] INP/OBS CARE(HIGH) CONSTANTINO GREENWOOD RESIDENT Jan 22, 2025 15:57 FLOR SIMMONS MD Jan 24, 2025 00:01
[2025-01-22] MEDS: ALLOPURINOL 100 MG TAB PO ONE (16:00)
[2025-01-22 16:14] LABS: Wright Stain Ready for Review
[2025-01-22 18:28] LABS: Potassium 4.3 mmol/L (3.5-5.1)
[2025-01-22 18:29] LABS: Anion Gap 19 (5-15)
[2025-01-22 18:34] LABS: BUN/Creatinine Ratio 11.9 (10.0-20.0)
[2025-01-22 19:05] LABS: Calcium 7.4 mg/dL (8.7-10.4); Carbon Dioxide 14 mmol/L (20-31); Chloride 96 mmol/L (98-107); Glucose 111 mg/dL (74-106); Sodium 129 mmol/L (136-145)
[2025-01-22 19:07] LABS: Blood Urea Nitrogen 127 mg/dL (9-23)
[2025-01-22] MEDS ORDERED: methylPREDNISolone SOD SUCC 40 MG/ML VL IV SCH (20:45)
--- NOTE | 2025-01-22 20:50 | DVHINCON2 ---
Date of service: Jan 22, 2025 Reason for Consultation MALATHI History of Present Illness 39 years male with past medical history of hypertension, noncompliance does not see any doctors does not take any medications, obesity presented with chief complaints of difficulty breathing for the past several days prior to admission and difficulty urinating, positive rash associated with itching.. He did not see any kidney doctors in the past he was here in the emergency room few days ago and signed out against medical advice and then came back now as his symptoms are worse Past Medical History As per HPI Past Surgical History Denies any Allergies: Coded Allergies: NO KNOWN ALLERGIES (Unverified , 01/20/25) Home Meds No Active Prescriptions or Reported Meds Current Medications Current Medications Medications (Trade) Dose Ordered Sig/Nghia Route PRN Reason Start Time Stop Time Status Last Admin Bumetanide 12.5 mg/Miscellaneous 50 ml @ 2 mls/hr Q24H IV 01/22/25 20:45 01/22/25 21:34 Methylprednisolone Sodium Succinate (Solu Medrol) 1,000 mg DAILY IV 01/22/25 20:45 01/24/25 10:01 UNV Methylprednisolone Sodium Succinate 1000 mg/Sodium Chloride 250 ml @ 300 mls/hr DAILY@2100 IV 01/22/25 21:00 01/23/25 09:28 DC 01/22/25 21:32 Family History: Patient reports no known family medical history. Social History Positive for smoking Review of Systems Review of systems as mentioned in HPI H&P Exam Vital Signs/I&O Vital Sign Date Time Temp Pulse Resp B/P (MAP) Pulse Ox O2 Delivery O2 Flow Rate FiO2 01/23/25 09:00 98.0 63 20 163/97 (119) 100 98.0 01/23/25 08:15 Room Air* 0 21 Intake and Output 01/22/25 01/23/25 19:00 07:00 Intake Total 250 ml 1216 ml Output Total 70 ml Balance 250 ml 1146 ml Intake Oral 850 ml IV Total 250 ml 250 ml Other 116 ml Output Urine Total 70 ml Physical Exam General-appears ill HEENT-normocephalic, no icterus, no pallor, neck supple Respiratory-fair air entry bilateral, [id number] heard, no murmurs appreciated Abdominal-soft, nontender, nondistended Musculoskeletal-positive pedal edema, no calf tenderness Genitourinary-deferred Neuro-awake alert oriented x3, Psychiatric-not agitated, cooperative, Skin diffuse rash Labs/Diagnostic Data Labs/Diagnostic Data Laboratory Tests Test 01/23/25 06:34 01/23/25 00:30 01/22/25 17:45 01/22/25 12:58 Range/Units White Blood Count 12.3 #H 4.4-10.8 10^3/uL Red Blood Count 3.39 L 4.5-5.90 10^6/uL Hemoglobin 11.3 L 13.5-17.5 g/dL Hematocrit 32.0 L 41.0-53.0 % Mean Corpuscular Volume 94.5 80.0-100.0 fL Mean Corpuscular Hemoglobin 33.3 H 28.0-32.0 pg Mean Corpuscular Hemoglobin Concent 35.3 32.0-36.0 g/dL Red Cell Distribution Width 14.9 H 11.8-14.3 % Platelet Count 71 L 140-450 10^3/uL Mean Platelet Volume 9.7 6.9-10.8 fL Neutrophils (%) (Auto) 37.0-80.0 % Lymphocytes (%) (Auto) 10.0-50.0 % Monocytes (%) (Auto) 0.0-12.0 % Basophils (%) (Auto) 0.0-2.0 % Neutrophils # (Auto) 1.6-8.6 10 ^3/uL Lymphocytes # (Auto) 0.4-5.4 10 ^3/uL Monocytes # (Auto) 0-1.3 10 ^3/uL Differential Total Cells Counted 100.0 100 Neutrophils % (Manual) 64 37.0-80.0 Band Neutrophils % (Manual) 4 Lymphocytes % (Manual) 20 10.0-50.0 Monocytes % (Manual) 7 0-12 Eosinophils % (Manual) 3 0-7 Basophils % (Manual) 0 0.0-2.0 Metamyelocytes % (manual) 1 Myelocytes % (Manual) 0 Promyelocytes % (Manual) 0 Blast Cells % (Manual) 1 Reactive Lymphocytes 0 Platelet Estimate Decreased Sodium Level 128 L 129 L 136-145 mmol/L Potassium Level 4.3 4.3 3.5-5.1 mmol/L Chloride Level 92 L 96 L 98-107 mmol/L Carbon Dioxide Level 13 L 14 L 20-31 mmol/L Anion Gap 23 H 19 H 5-15 Blood Urea Nitrogen 132 *H 127 #*H 9-23 mg/dL Creatinine 11.57 *H 10.69 *H 0.700-1.30 mg/dL Glomerular Filtration Rate Calc 5 6 >90 mL/min BUN/Creatinine Ratio 11.4 11.9 10.0-20.0 Serum Glucose 130 H 111 H 74-106 mg/dL Uric Acid 20.8 H 3.7-9.2 mg/dL Calcium Level 7.2 L 7.4 L 8.7-10.4 mg/dL Phosphorus Level 8.2 H 2.4-5.1 mg/dL Total Bilirubin 2.4 H 0.2-1.0 mg/dL Aspartate Amino Transferase (AST) 39 13-40 U/L Alanine Aminotransferase (ALT) 38 7-40 U/L Alkaline Phosphatase 73 46-116 U/L Total Protein 9.0 H 5.7-8.2 g/dL Albumin 2.6 L 3.2-4.8 g/dL Urine Creatinine 128.70 H 30.0-125.0 mg/dL Urine Protein/Creatinine Ratio 2.22 Urine Sodium 63 40-220 mmol/L Urine Total Protein 285.3 H 1-14 mg/dL Urine Opiates Screen Neg NEGATIVE Urine Fentanyl Screen Neg NEGATIVE Urine Barbiturates Screen Neg NEGATIVE Urine Phencyclidine Screen Neg NEGATIVE Urine Amphetamines Screen Neg NEGATIVE Urine Benzodiazepines Screen Neg NEGATIVE Urine Cocaine Screen Neg NEGATIVE Urine Cannabinoids Screen Neg NEGATIVE Anti-Nuclear Antibody Screen Positive H Negative Anti-Nuclear Antibody Comment Comment . Cytomegalovirus IgG Antibody <0.60 0.00-0.59 U/mL Cytomegalovirus IgM Antibody <30.0 0.0-29.9 AU/mL Test 01/22/25 10:19 01/21/25 20:01 01/21/25 16:48 01/21/25 13:17 Range/Units White Blood Count 18.4 H 21.8 #H 4.4-10.8 10^3/uL Red Blood Count 3.47 L 3.74 L 4.5-5.90 10^6/uL Hemoglobin 11.6 L 12.2 L 13.5-17.5 g/dL Hematocrit 33.6 L 35.9 L 41.0-53.0 % Mean Corpuscular Volume 97.0 96.0 80.0-100.0 fL Mean Corpuscular Hemoglobin 33.3 H 32.6 H 28.0-32.0 pg Mean Corpuscular Hemoglobin Concent 34.4 34.0 32.0-36.0 g/dL Red Cell Distribution Width 15.1 H 15.0 H 11.8-14.3 % Platelet Count 78 L 116 L 140-450 10^3/uL Mean Platelet Volume 8.9 8.9 6.9-10.8 fL Neutrophils (%) (Auto) 37.0-80.0 % Lymphocytes (%) (Auto) 10.0-50.0 % Monocytes (%) (Auto) 0.0-12.0 % Basophils (%) (Auto) 0.0-2.0 % Neutrophils # (Auto) 1.6-8.6 10 ^3/uL Lymphocytes # (Auto) 0.4-5.4 10 ^3/uL Monocytes # (Auto) 0-1.3 10 ^3/uL Differential Total Cells Counted 100.0 100.0 100 Neutrophils % (Manual) 66 55 37.0-80.0 Band Neutrophils % (Manual) 7 3 Lymphocytes % (Manual) 15 15 10.0-50.0 Monocytes % (Manual) 4 6 0-12 Eosinophils % (Manual) 6 17 H 0-7 Basophils % (Manual) 0 0 0.0-2.0 Metamyelocytes % (manual) 0 0 Myelocytes % (Manual) 0 2 Promyelocytes % (Manual) 0 2 Blast Cells % (Manual) 2 0 Reactive Lymphocytes 0 0 Platelet Estimate Decreased Decreased Erythrocyte Sedimentation Rate 86 H 0-20 mm/hr Reticulocyte Count (auto) 0.89 0.5-1.5 % Sodium Level 129 L 132 L 136-145 mmol/L Potassium Level 4.0 4.3 3.5-5.1 mmol/L Chloride Level 97 L 98 98-107 mmol/L Carbon Dioxide Level 13 L 14 L 20-31 mmol/L Anion Gap 19 H 20 H 5-15 Blood Urea Nitrogen 95 #*H 84 #*H 9-23 mg/dL Creatinine 10.23 *H 9.56 H 0.700-1.30 mg/dL Glomerular Filtration Rate Calc 6 7 >90 mL/min BUN/Creatinine Ratio 9.3 L 8.8 L 10.0-20.0 Serum Glucose 175 H 141 H 74-106 mg/dL Lactic Acid Level 1.9 2.7 *H 0.4-2.0 mmol/L Uric Acid 19.5 H 3.7-9.2 mg/dL Calcium Level 7.5 L 7.4 L 8.7-10.4 mg/dL Phosphorus Level 5.7 H 2.4-5.1 mg/dL Total Bilirubin 2.5 H 0.2-1.0 mg/dL Aspartate Amino Transferase (AST) 39 13-40 U/L Alanine Aminotransferase (ALT) 36 7-40 U/L Alkaline Phosphatase 80 46-116 U/L Lactate Dehydrogenase 511 H 120-246 U/L C-Reactive Protein High Sensitivity 10.22 H <1.0 mg/dL Total Protein 8.8 H 5.7-8.2 g/dL Albumin 2.7 L 3.2-4.8 g/dL Parathyroid Hormone (Intact) 170.4 H 18.4-80.1 pg/mL Random Vancomycin Level 16.6 H 5-10 ug/mL Plasma/Serum Blood Alcohol < 3.0 <10 mg/dL Treponema pallidum Antibody Non-reactive Negative Olivia-Centeno Virus Capsid Ag IgG Ab 82.2 H 0.0-17.9 U/mL Olivia-Centeno Virus Capsid Ag IgM Ab 48.6 H 0.0-35.9 U/mL Olivia-Centeno Early Antigen IgG Ab >600.0 H 0.0-17.9 U/mL Olivia-Centeno Virus Ab Interpret Comment . HIV (1&2) Antibody Negative Negative Urine Color Rem[place] H Yellow Urine Clarity Ex.turbid Clear Urine pH 5.5 5.0-9.0 Urine Specific Dearing 1.027 1.001-1.035 Urine Protein 2+ H Negative Urine Ketones Trace Negative Urine Blood 3+ H Negative /uL Urine Nitrite Negative Negative Urine Bilirubin 1+ Negative Urine Urobilinogen Normal Negative mg/dL Urine Leukocyte Esterase 3+ Negative /uL Urine RBC 387 0 - 3 /hpf Urine Microscopic WBC 100 H 0-3 /HPF Urine Squamous Epithelial Cells Mod <5 /hpf Urine Amorphous Crystals Few None Seen /hpf Urine Bacteria Few H None Seen /hpf Urine Hyaline Casts Few 0 - 2 /lpf Urine Mucus Few None Seen Urine Glucose 1+ H Normal mg/dL Nucleated Red Blood Cells 1.0 % Hemoglobin A1c 5.2 <5.7 % A1C Assessment Acute kidney injury---unknown etiology for now likely acute tubular necrosis however rule out glomerular pathology Sepsis-?? Pneumonia Rule out lymphoma Given lymphadenopathy status post lymph node biopsy Thrombocytopenia Hyponatremia Metabolic acidosis anion gap Hyperuricemia Paraproteinemia Hypocalcemia Hyperphosphatemia recs Check KEIRA comprehensive panel, Anca panel, anti-GBM antibody, complement level C3, C4 IV bicarb as ordered ESR CRP are high Bumex drip given low urine volumes and shortness of breath Antibiotics per primary team Steroids IV as ordered-- Patient will need renal replacement therapy for solute and volume clearance He will also need kidney biopsy for definitive diagnosis after dialysis All questions answered we will follow closely Critically ill Reviewed vital signs, lab work, imaging studies, medications, microbiology, other physician recommendations Total time spent 80 minutes More than 50% of the time spent providing direct [id number] care . Thank you for allowing me to participate in the care of your patient. Plan discussed with: Patient GAIL SANDS MD Jan 22, 2025 20:50
[2025-01-22] MEDS: SODIUM BICARB 8.4% 50Meq/50ml SYR Vial IV ONE (21:30)
[2025-01-22] MEDS: BUMETANIDE 2.5mg/10ml (0.25 mg/ml) INJ IV ONE (21:31)
[2025-01-22] MEDS: methylPREDNISolone SOD SUCC 1,000 MG in SODIUM CHL 0.9% 250 ML IV SCH (21:32)
[2025-01-22] MEDS: BUMETANIDE INJECTION 12.5 MG in GIVE UN-DILUTED 0 ML IV SCH (21:34)
[2025-01-23] VITALS (13 sets, daily range): BP systolic 150–181; BP diastolic 89–107; PULSE 59–78; RESP 13–22; TEMP 97.5–98.4; O2SAT 97–100
[2025-01-23 06:07] LABS: EBV Ab VCA IgG Antibody 82.2 U/mL (0.0-17.9); EBV Ab VCA IgM Antibody 48.6 U/mL (0.0-35.9); EBV Early Antigen IgG Antibody >600.0 U/mL (0.0-17.9)
[2025-01-23 07:21] LABS: Hematocrit 32.0 % (41.0-53.0); Hemoglobin 11.3 g/dL (13.5-17.5); Mean Corpuscular Hemoglobin 33.3 pg (28.0-32.0); Mean Corpuscular Volume 94.5 fL (80.0-100.0)
[2025-01-23 07:31] LABS: Alanine Aminotransferase 38 U/L (7-40); Alkaline Phosphatase 73 U/L (46-116); Anion Gap 23 (5-15); BUN/Creatinine Ratio 11.4 (10.0-20.0); Potassium 4.3 mmol/L (3.5-5.1)
[2025-01-23 07:35] LABS: Carbon Dioxide 13 mmol/L (20-31); Chloride 92 mmol/L (98-107); Glucose 130 mg/dL (74-106); Sodium 128 mmol/L (136-145)
[2025-01-23 07:37] LABS: Albumin 2.6 g/dL (3.2-4.8); Bilirubin, Total 2.4 mg/dL (0.2-1.0); Blood Urea Nitrogen 132 mg/dL (9-23); Calcium 7.2 mg/dL (8.7-10.4); Total Protein 9.0 g/dL (5.7-8.2)
[2025-01-23 08:50] LABS: Uric Acid 20.8 mg/dL (3.7-9.2)
[2025-01-23 09:16] LABS: Amphetamine Screen, Urine Neg (NEGATIVE); Barbiturate Scree,Urine Neg (NEGATIVE); Benzodiazephine Screen, Urine Neg (NEGATIVE); Cannabinoid Screen, Urine Neg (NEGATIVE); Cocaine Screen, Urine Neg (NEGATIVE); Opiate Scree,Urine Neg (NEGATIVE); Phencyclidine Screen, Urine Neg (NEGATIVE)
[2025-01-23] MEDS: HYDROcodone-ACET 5/325MG TAB PO PRN (09:51)
[2025-01-23 10:08] LABS: Protein, Urine 285.3 mg/dL (1-14)
[2025-01-23 11:10] LABS: Total Cells Counted 100.0 (100)
[2025-01-23] MEDS: LIDOCAINE 2%HCL (LOCAL ANESTH.) INJ 20ML MDV ONE (12:50)
[2025-01-23] MEDS: HEPARIN SODIUM (PORCINE) 5000 UNITS/ML 1ML VIAL ONE (12:52)
[2025-01-23 13:07] LABS: Anti-Nuclear Antibody Direct Positive (Negative)
--- NOTE | 2025-01-23 13:26 | DVHPN2 ---
Progress Note Date Seen: Jan 23, 2025 Medical Necessity Reason Pt with a Central, PICC or Fol: Yes The following are medically ne: Kaplan Catheter Reason for kaplan catheter: Bladder Retention/Obstruc, Strict I&O Subjective Patient reports: Other Review of Systems: HEENT:Normal, CVS:Normal, RESPIRATORY:Abnormal, GI:Normal, :Normal, MSK:Abnormal, NEURO:Normal Objective vital signs Vital Sign Date Time Temp Pulse Resp B/P (MAP) Pulse Ox O2 Delivery O2 Flow Rate FiO2 01/23/25 09:00 98.0 63 20 163/97 (119) 100 98.0 01/23/25 08:15 Room Air* 0 21 Total Intake and Output 01/22/25 01/22/25 01/23/25 15:00 23:00 07:00 Intake Total 250 ml 600 ml 616 ml Output Total 70 ml Balance 250 ml 600 ml 546 ml medications Current Medications Medications Dose Ordered Sig/Nghia Route Start Time Stop Time Status Last Admin Dose Admin Azithromycin 250 ml @ 125 mls/hr DAILY IV 01/22/25 10:00 01/23/25 09:51 Multivit/Ca Carb/ B Cmplx/FA/Prenat 1 tab DAILY PO 01/22/25 10:00 01/22/25 09:38 Sodium Chloride 10 ml Q8HR IV 01/21/25 22:00 01/23/25 06:21 Acetaminophen/ Hydrocodone Bitart 1 tab Q4HP PRN PO 01/21/25 16:15 01/23/25 09:51 Ondansetron HCl 4 mg Q4HP PRN IV 01/21/25 16:15 Docusate Sodium 100 mg BIDPRN PRN PO 01/21/25 16:15 Acetaminophen 650 mg Q6HP PRN PO 01/21/25 16:15 Nitroglycerin 0.4 mg Q5MINP PRN SL 01/21/25 17:30 Morphine Sulfate 2 mg Q30M PRN IV 01/21/25 17:30 Bumetanide 12.5 mg/Miscellaneous 50 ml @ 2 mls/hr Q24H IV 01/22/25 20:45 01/22/25 21:34 Methylprednisolone Sodium Succinate 1,000 mg DAILY IV 01/22/25 20:45 01/24/25 10:01 UNV Examination: GENERAL:Abnormal, HEENT:Normal, NECK:Normal, LUNGS:Normal, CVS:Normal, ABDOMEN:Normal, MSK:Abnormal, SKIN:Abnormal, NEURO:Normal, :Normal laboratory and microbiology Laboratory Tests 01/23/25 06:34 Test 01/23/25 06:34 Range/Units Serum Glucose 130 H 74-106 mg/dL Microbiology Date/Time Source Procedure Growth Status 01/22/25 10:19 Blood Blood Culture - Preliminary NO GROWTH AFTER 24 HOURS OF INCUBATION. Resulted Problem List/Assessment/Plan Problem List/Assessment/Plan Acute kidney injury---unknown etiology for now likely acute tubular necrosis however rule out glomerular pathology//questionable tumor lysis syndrome in differential Sepsis-?? Pneumonia Rule out lymphoma Given lymphadenopathy status post lymph node biopsy Thrombocytopenia Hyponatremia Metabolic acidosis anion gap Hyperuricemia Paraproteinemia Hypocalcemia Hyperphosphatemia recs Check NELY comprehensive panel, Anca panel, anti-GBM antibody, complement level C3, C4,myeloma panel IV bicarb as ordered ESR CRP are high Bumex drip given low urine volumes and shortness of breath Antibiotics per primary team Steroids IV as ordered--for 3 days Patient will need renal replacement therapy for solute and volume clearance He will also need kidney biopsy for definitive diagnosis after dialysis All questions answered we will follow closely Critically ill IR guided tunneled catheter//dialysis after catheter placement Recommend Heme-Onc consult Recommend ID consult If NELY panel comes back positive he will need rheumatology consult as well Plan discussed with: Patient My Orders My Orders Orders - GAIL SANDS MD Procedure Category Date Status Time Nely; Comprehensive LAB 01/23/25 In Process Panel 04:00 Anca Panel LAB 01/23/25 In Process 04:00 Complement C3 & C4 LAB 01/23/25 In Process 04:00 Immunofixation Serum LAB 01/23/25 In Process 04:00 Protein LAB 01/23/25 In Process Electrophoresis Serum 04:00 [place] Lambda Lite LAB 01/23/25 In Process Chain Free S 04:00 * Radiologist Consult CONS 01/22/25 Transmitted 20:37 Give Un-Diluted PHA 01/22/25 In Process (Gi... W/Bumetanide 20:45 Antiglomerular Bm LAB 01/23/25 In Process Antibody 04:00 Hemodialysis Orders ORDERS 01/23/25 Transmitted 04:00 Communication Order ORDERS 01/23/25 Transmitted 09:30 Dietary Evaluation Review Comments: Nutrition Recommendation: 1) Continue current POC 2) Monitor PO intake, lab values, weight trend, and I/O Expected Outcomes/Goals: To meet >75% estimated needs Lab values to improve Fu 3-5 days Critical Care Time (mins): 45 GAIL SANDS MD Jan 23, 2025 13:26
--- NOTE | 2025-01-23 14:46 | DVH ---
XY Insertion of Venous Cath, HISTORY: HD CATH PL due to ESRD PROCEDURE: Informed consent was obtained. The patient was placed supine on the interventional table. A limited localization ultrasound of the right neck base was obtained. The right neck base and upper chest were prepped with chlorhexidine which was allowed to dry and draped in the usual sterile fashio n. Time out was performed. IV sedation was administered. The skin and the soft tissues were infiltrat ed with 1% Lidocaine. With real-time ultrasound guidance, the internal jugular vein was accessed with a micropuncture kit, and an image documenting patency was recorded to PACS. A subcutaneous tunneled tract was created from the right upper chest to the venotomy site. A 14.5 Norwegian Reeder Path, 19 cm lo ng hemodialysis catheter was advanced through the tunneled tract. Fluoroscopy was used to advance a guidewire through the internal jugular vein into the inferior vena cava. Following serial dilatation, a 15 Norwegian peel-away sheath was introduced, though which was adva nced the catheter into the right atrium. The catheter tip position was confirmed with fluoroscopy. Th ere was satisfactory flow in both lumens. The catheter lumens were flushed with saline and heparin wa s left indwelling in the catheter. A post-procedure image of the chest was obtained. The neck incisio n site was closed with Dermabond and dressed sterilely. The catheter was sutured at the skin surface and exit site also dressed sterilely. No immediate complication was identified. 18 mGy FLUOROSCOPY TIME: 1.5 minutes. SEDATION: Dr. Mellisa Gomez was personally responsible for the administration of moderate sedation during the procedure performed, including the use of an independent trained observer who had no other duties during the procedure. The drugs utilized were IV fentanyl and versed (see nursing log for details). The total time of supervision by the attending physician was approximately 30 minutes. FINDINGS: Widely patent right IJV. Post procedure image demonstrates smooth course of the hemodialysi s catheter with the tip in the right atrium. IMPRESSION: Placement of 14.5 jordanian Reeder Path, 19 cm long hemodialysis catheter through right internal jugular vein. Plan: Please contact IR for removal when no longer needed.
[2025-01-23 15:07] LABS: Anti-dsDNA Antibody 4 IU/mL (0-9); Sjogren's Anti-SS-A Antibody <0.2 AI (0.0-0.9); Sjogren's Anti-SS-B Antibody <0.2 AI (0.0-0.9)
--- NOTE | 2025-01-23 15:24 | MEDREC ---
[facility] Intervention Section I [facility] Intervention: Review courses of therapy (PLEASE CONSIDER ADDING CEFTRIAXONE FOR POSSIBLE UTI) SALVATORE WANG PHARMACIST Jan 23, 2025 15:24
--- NOTE | 2025-01-23 15:43 | DVH ---
EXAM: CT CHEST WITHOUT CONTRAST History: evaluate infiltrate Comparison Study: XY CHEST PORTABLE on DOS: 01/21/25, XY CHEST XRAY 1 VIEW on DOS: 01/21/25 TECHNIQUE: Multidetector CT of the chest was performed. Imaging was performed without IV contrast. Ax ial, coronal, and sagittal multiplanar reformats were obtained from the axial data set by the technol ogneal. Radiation Dose : CTDI vol 17.03 mGy, DLP 17.03 mGy*cm. Findings: Lungs: The lungs are clear. Pleura: Unremarkable Heart/Great vessels: No cardiomegaly or pericardial effusion. Mediastinum: Multiple prominent mediastinal nodes. Soft tissues/Bones: Moderate degenerative changes of the midthoracic spine. Multiple enlarged bilat eral axillary nodes. Multiple prominent retroperitoneal nodes. Hepatic steatosis. Splenomegaly. Impression: 1. No acute cardiopulmonary disease. 2. Multiple prominent bilateral axillary, mediastinal, and retroperitoneal nodes with splenomegaly. Findings are concerning for lymphoma. Recommend tissue sampling and PET-CT for further evaluation. Of note, the bilateral axillary nodes are amenable to biopsy.
--- NOTE | 2025-01-23 20:12 | DVHPNRES ---
Progress Note Date Seen: Jan 23, 2025 Resident Creating Document: CONSTANTINO GREENWOOD RESIDENT Medical Necessity Reason Pt with a Central, PICC or Fol: Yes The following are medically ne: Kaplan Catheter Reason for kaplan catheter: Bladder Retention/Obstruc, Strict I&O Subjective Review of Systems Patient is a 39-year-old male who denies any past medical history, presented to the ED with chief complaints of inability to urinate, shortness of breath mouth crusting, pain. He reported that he had difficulty urinating and was here 2 days ago with similar symptoms and had a Kaplan catheter placed but left AMA after. Patient was started on IV antibiotic vancomycin. past surgical history; denies Family history: liver cancer in father, breast cancer in grandmother personal history: patient smokes 2 cigarettes per day, drinks socially, uses marijuana, meth in the past, patient has prior STDs 2 years ago, he has unprotected sex with 1 partner 01/22/2025 Patient seen at bedside. Patient appears alert x3, in no distress, he complained of shortness of breath, unable to pee for 5 days bleeding and crusting of his lips with pain, pruritic rash which started in his wrists and progress to his arms , and in his legs. Patient did complain of night sweats, fevers, chills since 1 week. He also complained of white discharge from his penis, Since 1 month. Patient has diffuse lymphadenopathy. STD panel was ordered, radiologist was consulted for possible lymph node biopsy. Nephrology was consulted for possible dialysis. renal ultrasound 0.8 cm nonobstructive left kidney stone. Abdominal CT shows Severe hepatic steatosis., Retroperitoneal, pelvic side wall, inguinal lymphadenopathy. Lymphoma is a consideration., Punctate nonobstructive left kidney stone. Urinalysis shows positive signs of UTI. 01/23/25 patient seen at bedside. Patient appears alert x3, social service consult was placed for transfer to higher level of care for acute leukemia, lymphoma treatment. A tunnel catheter was placed for dialysis today and bled. lymph node biopsy was done. Patient was started on allopurinol 100 mg p.o., rasburicase IV b.i.d. Objective vital signs Vital Sign Date Time Temp Pulse Resp B/P (MAP) Pulse Ox O2 Delivery O2 Flow Rate FiO2 01/23/25 16:55 97.5 72 22 158/107 (124) 100 97.5 01/23/25 08:15 Room Air* 0 21 Total Intake and Output 01/22/25 01/22/25 01/23/25 15:00 23:00 07:00 Intake Total 250 ml 600 ml 616 ml Output Total 70 ml Balance 250 ml 600 ml 546 ml medications Current Medications Medications Dose Ordered Sig/Nghia Route Start Time Stop Time Status Last Admin Dose Admin Multivit/Ca Carb/ B Cmplx/FA/Prenat 1 tab DAILY PO 01/22/25 10:00 01/22/25 09:38 1 TAB Sodium Chloride 10 ml Q8HR IV 01/21/25 22:00 01/23/25 06:21 10 ML Acetaminophen/ Hydrocodone Bitart 1 tab Q4HP PRN PO 01/21/25 16:15 01/23/25 09:51 1 TAB Ondansetron HCl 4 mg Q4HP PRN IV 01/21/25 16:15 Docusate Sodium 100 mg BIDPRN PRN PO 01/21/25 16:15 Acetaminophen 650 mg Q6HP PRN PO 01/21/25 16:15 Nitroglycerin 0.4 mg Q5MINP PRN SL 01/21/25 17:30 Morphine Sulfate 2 mg Q30M PRN IV 01/21/25 17:30 Bumetanide 12.5 mg/Miscellaneous 50 ml @ 2 mls/hr Q24H IV 01/22/25 20:45 01/22/25 21:34 2 MLS/HR Methylprednisolone Sodium Succinate 1,000 mg DAILY IV 01/22/25 20:45 01/24/25 10:01 UNV Amlodipine Besylate 10 mg DAILY PO 01/24/25 10:00 Losartan Potassium 75 mg DAILY PO 01/24/25 10:00 Allopurinol 100 mg DAILY PO 01/24/25 10:00 Future Hold Rasburicase 5 mg/ Sodium Chloride 50 ml @ 50 mls/hr BID IV 01/24/25 10:00 Future Hold Ceftriaxone Sodium 50 ml @ 100 mls/hr DAILY@09 IV 01/24/25 09:00 Examination General: Patient alert and oriented in person, place and time. Patient following commands. HEENT: Normocephalic, atraumatic, moist mucous membranes, mouth leading, dark in color , diffuse lymphadenopathy Respiratory/pulmonary: Clear lungs bilaterally, vesicular murmurs present in almost all lung mckinney, no associated crackles or wheezes. Cardiovascular: Normal heart sounds S1 and S2 with no associated murmurs Abdomen: Abdomen nondistended, there is no pain to palpation in any of the abdominal quadrants, no palpable masses. Extremities: There is no peripheral edema present at the lower extremities. Peripheral Pulses: 3+ Radial (R). 3+ Radial (L). 3+ Dorsalis pedis (R). 3+ Dorsalis pedis(L) Skin: Rashes on bilateral arms and legs, with pruritus Neurological: Intact cranial nerves with no focal neurologic deficits laboratory and microbiology Laboratory Tests 01/23/25 06:34 Test 01/23/25 06:34 Range/Units Serum Glucose 130 H 74-106 mg/dL Microbiology Date/Time Source Procedure Growth Status 01/22/25 10:19 Blood Blood Culture - Preliminary NO GROWTH AFTER 24 HOURS OF INCUBATION. Resulted Problem List/Assessment/Plan Problem List/Assessment/Plan # generalized lymphadenopathy due to possible lymphoma/HIV/viral syndrome # possible tumor lysis syndrome # rule out possible Kaposi sarcoma vs HIV -IR consulted for possible lymph node biopsy -lymph node biopsy done -azithromycin - [place] -multivitamin # sepsis due to UTI # Acute complicated UTI # 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 # Anuria # hyperuricemia # hypophosphatemia - - patient has Kaplan catheter with minimal urine - nephrology consulted for possible dialysis - social service consulted for higher level of care - tunnel catheter placed for dialysis # rule out STI # unsafe sexual practices - ordered hepatitis-B, hepatitis-C, syphilis, CMV, EBV - HIV negative - EBV antibody positive # polysubstance abuse disorder - patient counseled on risks of using drugs, cigarettes, alcohol for more than 17 minutes Goals of care addressed with the patient for more than 27 minutes: Full code status Case discussed with , patient and nurse Plan discussed with: Patient My Orders My Orders Orders - CONSTANTINO GREENWOOD RESIDENT Procedure Category Date Status Time Discontinue Tele WILNER 01/23/25 In Process 11:50 Insertion Of Venous XY 01/23/25 Resulted Cath 13:31 Dietary Evaluation Review Comments: Nutrition Recommendation: 1) Continue current POC 2) Monitor PO intake, lab values, weight trend, and I/O Expected Outcomes/Goals: To meet >75% estimated needs Lab values to improve Fu 3-5 days Date of Service: Jan 23, 2025 Billing Provider: FLOR SIMMONS MD Common Visit Codes: [id number] INP/OBS CARE(HIGH) CONSTANTINO GREENWOOD RESIDENT Jan 23, 2025 20:12 FLOR SIMMONS MD Jan 24, 2025 00:01
[2025-01-23] MEDS: methylPREDNISolone SOD SUCC 1,000 MG in SODIUM CHL 0.9% 250 ML IV ONE (21:58)
[2025-01-23] MEDS: ALLOPURINOL 100 MG TAB PO ONE (22:06)
[2025-01-23 23:56] LABS: Fibrinogen 180.0 mg/dL (177-375); INR 1.93 (0.9-1.15); Partial Thromboplastin Time 33.2 SEC (24.5-34.5); Prothrombin Time 19.2 sec (9.3-11.8)
[2025-01-24] VITALS (8 sets, daily range): BP systolic 127–190; BP diastolic 90–123; PULSE 59–86; RESP 17–20; TEMP 97.7–97.9; O2SAT 96–100
[2025-01-24] MEDS: cefTRIAXone 1GM/50ML D5W 50 ML IV ONE (01:49)
[2025-01-24] MEDS: SODIUM BICARB 8.4% 50Meq/50ml SYR Vial IV ONE (02:03)
[2025-01-24] MEDS: SODIUM BICARB 8.4% 50Meq/50ml SYR INJ ONE (02:04)
[2025-01-24] MEDS: LOSARTAN POTASSIUM 25 MG TAB PO ONE (02:15)
[2025-01-24] MEDS: SODIUM BICARB 50mEq/50ml Vial 150 ML in D5W 5% 1,000 ML IV ONE (02:16)
[2025-01-24] MEDS: HYDROcodone-ACET 5/325MG TAB PO PRN (03:43)
[2025-01-24 05:08] LABS: Immunoglobulin A 526 mg/dL (90-386); Immunoglobulin G, Serum 4963 mg/dL (603-1613); Immunoglobulin M 121 mg/dL (20-172)
[2025-01-24] MEDS: MORPHINE SULFATE INJ 2 MG/ml SYRG IV PRN (05:53)
[2025-01-24 07:07] LABS: Kappa Lite Chain Free Serum 787.7 mg/L (3.3-19.4)
[2025-01-24] MEDS ORDERED: RASBURICASE IV SCH (10:00)
[2025-01-24] MEDS ORDERED: SODIUM CHL 0.9% IV SCH (10:00)
--- NOTE | 2025-01-24 11:11 | DVHPNRES ---
Progress Note Date Seen: Jan 24, 2025 Resident Creating Document: CONSTANTINO GREENWOOD RESIDENT Medical Necessity Reason Pt with a Central, PICC or Fol: Yes The following are medically ne: Kaplan Catheter Reason for kaplan catheter: Bladder Retention/Obstruc, Strict I&O Subjective Review of Systems Patient is a 39-year-old male who denies any past medical history, presented to the ED with chief complaints of inability to urinate, shortness of breath mouth crusting, pain. He reported that he had difficulty urinating and was here 2 days ago with similar symptoms and had a Kaplan catheter placed but left AMA after. Patient was started on IV antibiotic vancomycin. past surgical history; denies Family history: liver cancer in father, breast cancer in grandmother personal history: patient smokes 2 cigarettes per day, drinks socially, uses marijuana, meth in the past, patient has prior STDs 2 years ago, he has unprotected sex with 1 partner 01/22/2025 Patient seen at bedside. Patient appears alert x3, in no distress, he complained of shortness of breath, unable to pee for 5 days bleeding and crusting of his lips with pain, pruritic rash which started in his wrists and progress to his arms , and in his legs. Patient did complain of night sweats, fevers, chills since 1 week. He also complained of white discharge from his penis, Since 1 month. Patient has diffuse lymphadenopathy. STD panel was ordered, radiologist was consulted for possible lymph node biopsy. Nephrology was consulted for possible dialysis. renal ultrasound 0.8 cm nonobstructive left kidney stone. Abdominal CT shows Severe hepatic steatosis., Retroperitoneal, pelvic side wall, inguinal lymphadenopathy. Lymphoma is a consideration., Punctate nonobstructive left kidney stone. Urinalysis shows positive signs of UTI. 01/23/25 patient seen at bedside. Patient appears alert x3, social service consult was placed for transfer to higher level of care for acute leukemia, lymphoma treatment. A tunnel catheter was placed for dialysis today and bled. lymph node biopsy was done. Patient was started on allopurinol 100 mg p.o., rasburicase IV b.i.d. 01/24/25 Patient seen At bedside. Patient is very tired, appeared confused, complains of abdominal pain. Kaplan catheter showed blood in the urine. Patients mouth appears black, is bleeding in the gums and tongue. patient underwent dialysis, patient was started on tamsulosin 0.[address] shows Multiple prominent bilateral axillary, mediastinal, and retroperitoneal nodes with splenomegaly. Findings are concerning for lymphoma. Recommend tissue sampling and PET-CT for further evaluation. social service was consulted for higher level of care, and stated that I [facility] declined to provide Auth for transfer. Objective vital signs Vital Sign Date Time Temp Pulse Resp B/P (MAP) Pulse Ox O2 Delivery O2 Flow Rate FiO2 01/24/25 09:21 86 18 127/98 (108) 01/24/25 08:00 96 Room Air* 0 21 01/24/25 05:00 97.7 97.7 Total Intake and Output 01/23/25 01/23/25 01/24/25 15:00 23:00 07:00 Intake Total 0 ml Output Total 750 ml 1500 ml Balance -750 ml -1500 ml medications Current Medications Medications Dose Ordered Sig/Nghia Route Start Time Stop Time Status Last Admin Dose Admin Multivit/Ca Carb/ B Cmplx/FA/Prenat 1 tab DAILY PO 01/22/25 10:00 01/22/25 09:38 1 TAB Sodium Chloride 10 ml Q8HR IV 01/21/25 22:00 01/24/25 06:18 10 ML Ondansetron HCl 4 mg Q4HP PRN IV 01/21/25 16:15 Docusate Sodium 100 mg BIDPRN PRN PO 01/21/25 16:15 Acetaminophen 650 mg Q6HP PRN PO 01/21/25 16:15 Nitroglycerin 0.4 mg Q5MINP PRN SL 01/21/25 17:30 Morphine Sulfate 2 mg Q30M PRN IV 01/21/25 17:30 01/24/25 05:53 2 MG Bumetanide 12.5 mg/Miscellaneous 50 ml @ 2 mls/hr Q24H IV 01/22/25 20:45 01/23/25 21:59 2 MLS/HR Methylprednisolone Sodium Succinate 1,000 mg DAILY IV 01/22/25 20:45 01/24/25 10:01 UNV Amlodipine Besylate 10 mg DAILY PO 01/24/25 10:00 Losartan Potassium 75 mg DAILY PO 01/24/25 10:00 Allopurinol 100 mg HS PO 01/24/25 22:00 Future hold Rasburicase 5 mg/ Sodium Chloride 50 ml @ 50 mls/hr BID IV 01/24/25 10:00 Hold Ceftriaxone Sodium 50 ml @ 100 mls/hr DAILY@09 IV 01/24/25 09:00 Acetaminophen/ Hydrocodone Bitart 1 tab Q4HP PRN PO 01/24/25 03:45 01/24/25 03:43 1 TAB Examination General: Patient alert and oriented in person, place and time. Patient following commands. HEENT: Normocephalic, atraumatic, moist mucous membranes, mouth leading, dark in color , diffuse lymphadenopathy Respiratory/pulmonary: Clear lungs bilaterally, vesicular murmurs present in almost all lung mckinney, no associated crackles or wheezes. Cardiovascular: Normal heart sounds S1 and S2 with no associated murmurs Abdomen: Abdomen nondistended, there is no pain to palpation in any of the abdominal quadrants, no palpable masses. Extremities: There is no peripheral edema present at the lower extremities. Peripheral Pulses: 3+ Radial (R). 3+ Radial (L). 3+ Dorsalis pedis (R). 3+ Dorsalis pedis(L) Skin: Rashes on bilateral arms and legs, with pruritus Neurological: Intact cranial nerves with no focal neurologic deficits laboratory and microbiology Laboratory Tests 01/23/25 06:34 Test 01/23/25 06:34 Range/Units Serum Glucose 130 H 74-106 mg/dL Microbiology Date/Time Source Procedure Growth Status 01/22/25 10:19 Blood Blood Culture - Preliminary NO GROWTH AFTER 48 HOURS OF INCUBATION. 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 Findings are concerning for lymphoma. -ceftriaxone - [place] -multivitamin # sepsis due to UTI # Acute complicated UTI # 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 # Anuria # hyperuricemia # hyperphosphatemia #Thrombocytopenia #Hyponatremia #Metabolic acidosis anion gap #Paraproteinemia #Hypocalcemia - KEIRA positive - patient has Kaplan catheter with minimal urine - nephrology consulted for possible dialysis - social service consulted for higher level of care - tunnel catheter placed for dialysis - patient given tamsulosin 0.4 mg p.o. # rule out STI # unsafe sexual practices - ordered hepatitis-B, hepatitis-C, syphilis, CMV, EBV - HIV negative - EBV antibody positive # polysubstance abuse disorder - patient counseled on risks of using drugs, cigarettes, alcohol for more than 17 minutes PUD PPX: Protonix 40 mg DVT PPX: Not Indicated Goals of care addressed with the patient for more than 27 minutes: Full code status Case discussed with , patient and nurse Plan discussed with: Patient, Other (RN) My Orders My Orders Orders - CONSTANTINO GREENWOOD Procedure Category Date Status Time Discontinue Tele WILNER 01/23/25 In Process 11:50 Insertion Of Venous XY 01/23/25 Resulted Cath 13:31 Complete Blood Count LAB 01/24/25 Logged 04:00 Basic Metabolic Panel LAB 01/24/25 Logged 04:00 Phosphorus LAB 01/24/25 Logged 09:17 Uric Acid LAB 01/24/25 Logged 09:17 Lactate Dehydrogenase LAB 01/24/25 Logged 09:17 Dietary Evaluation Review Comments: Nutrition Recommendation: 1) Continue current POC 2) Monitor PO intake, lab values, weight trend, and I/O Expected Outcomes/Goals: To meet >75% estimated needs Lab values to improve Fu 3-5 days Date of Service: Jan 24, 2025 Billing Provider: FLOR SIMMONS MD Common Visit Codes: [id number] INP/OBS CARE(HIGH) CONSTANTINO GREENWOOD RESIDENT Jan 24, 2025 11:11 FLOR SIMMONS MD Jan 24, 2025 22:26
[2025-01-24 11:12] LABS: Hematocrit 36.3 % (41.0-53.0); Hemoglobin 13.0 g/dL (13.5-17.5); Mean Corpuscular Hemoglobin 33.0 pg (28.0-32.0); Mean Corpuscular Volume 92.3 fL (80.0-100.0)
[2025-01-24] MEDS: LOSARTAN POTASSIUM 25 MG TAB PO SCH (11:50)
[2025-01-24] MEDS: methylPREDNISolone SOD SUCC 40 MG/ML VL IV ONE (11:50)
[2025-01-24] MEDS: cefTRIAXone 1GM/50ML D5W 50 ML IV SCH (11:50)
[2025-01-24] MEDS: PHYTONADIONE (VIT K)10 MG/ML 1ML VIAL SUBCUT ONE (11:51)
--- NOTE | 2025-01-24 12:23 | DVHPN2 ---
Progress Note Date Seen: Jan 24, 2025 Medical Necessity Reason Pt with a Central, PICC or Fol: Yes The following are medically ne: Kaplan Catheter Reason for kaplan catheter: Bladder Retention/Obstruc, Strict I&O Subjective Patient reports: Other Review of Systems: Deferred Objective vital signs Vital Sign Date Time Temp Pulse Resp B/P (MAP) Pulse Ox O2 Delivery O2 Flow Rate FiO2 01/24/25 11:50 147/98 01/24/25 09:21 86 18 01/24/25 08:00 96 Room Air* 0 21 01/24/25 05:00 97.7 97.7 Total Intake and Output 01/23/25 01/23/25 01/24/25 15:00 23:00 07:00 Intake Total 0 ml Output Total 750 ml 1500 ml Balance -750 ml -1500 ml medications Current Medications Medications Dose Ordered Sig/Nghia Route Start Time Stop Time Status Last Admin Dose Admin Multivit/Ca Carb/ B Cmplx/FA/Prenat 1 tab DAILY PO 01/22/25 10:00 01/24/25 11:50 1 TAB Sodium Chloride 10 ml Q8HR IV 01/21/25 22:00 01/24/25 06:18 10 ML Ondansetron HCl 4 mg Q4HP PRN IV 01/21/25 16:15 Docusate Sodium 100 mg BIDPRN PRN PO 01/21/25 16:15 Acetaminophen 650 mg Q6HP PRN PO 01/21/25 16:15 Nitroglycerin 0.4 mg Q5MINP PRN SL 01/21/25 17:30 Morphine Sulfate 2 mg Q30M PRN IV 01/21/25 17:30 01/24/25 05:53 2 MG Methylprednisolone Sodium Succinate 1,000 mg DAILY IV 01/22/25 20:45 01/24/25 10:01 UNV Amlodipine Besylate 10 mg DAILY PO 01/24/25 10:00 01/24/25 11:50 10 MG Losartan Potassium 75 mg DAILY PO 01/24/25 10:00 01/24/25 11:50 75 MG Allopurinol 100 mg HS PO 01/24/25 22:00 Future hold Rasburicase 5 mg/ Sodium Chloride 50 ml @ 50 mls/hr BID IV 01/24/25 10:00 Hold Ceftriaxone Sodium 50 ml @ 100 mls/hr DAILY@09 IV 01/24/25 09:00 01/24/25 11:50 100 MLS/HR Acetaminophen/ Hydrocodone Bitart 1 tab Q4HP PRN PO 01/24/25 03:45 01/24/25 03:43 1 TAB Examination: MSK:Abnormal, SKIN:Abnormal, NEURO:Abnormal (atered) laboratory and microbiology Laboratory Tests 01/24/25 09:36 01/23/25 06:34 Test 01/23/25 06:34 Range/Units Serum Glucose 130 H 74-106 mg/dL Microbiology Date/Time Source Procedure Growth Status 01/23/25 00:30 Voided Urine Urine Culture - Preliminary Resulted 01/22/25 10:19 Blood Blood Culture - Preliminary NO GROWTH AFTER 48 HOURS OF INCUBATION. Resulted Problem List/Assessment/Plan Problem List/Assessment/Plan Acute kidney injury---unknown etiology for now likely acute tubular necrosis however rule out glomerular pathology//questionable tumor lysis syndrome in differential Sepsis-?? Pneumonia Rule out lymphoma Given lymphadenopathy status post lymph node biopsy Thrombocytopenia Hyponatremia Metabolic acidosis anion gap Hyperuricemia Paraproteinemia Hypocalcemia Hyperphosphatemia recs +dayton,progress man ab pending Anca panel, anti-GBM antibody,low complement level C3, C4,myeloma panel high kappa ,ratio looks ok kidney biopsy dc Bumex drip Antibiotics per primary team Steroids IV as ordered--for 3 days Patient will need renal replacement therapy for solute and volume clearance He will also need kidney biopsy for definitive diagnosis after dialysis IR guided tunneled catheter//dialysis after catheter placement Recommend Heme-Onc consult Recommend rheum /ID consult Plan discussed with: Patient My Orders My Orders Orders - GAIL SANDS MD Procedure Category Date Status Time Chest Without Contrast CT 01/23/25 Resulted 13:26 Amlodipine Tablet PHA 01/24/25 In Process (Norvasc Tablet) 10:00 Losartan Tablet PHA 01/24/25 In Process (Cozaar Tablet) 10:00 Allopurinol Tablet PHA 01/24/25 In Process (Zyloprim Tablet) 22:00 Rasburicase ([facility]) PHA 01/24/25 In Process 10:00 Communication Order ORDERS 01/23/25 Transmitted 17:52 * Radiologist Consult CONS 01/23/25 Transmitted 18:58 Hemodialysis Orders ORDERS 01/24/25 Transmitted 04:00 Basic Metabolic Panel LAB 01/24/25 Logged 10:25 Basic Metabolic Panel LAB 01/25/25 Verified 05:00 Basic Metabolic Panel LAB 01/26/25 Verified 05:00 Basic Metabolic Panel LAB 01/27/25 Verified 05:00 Basic Metabolic Panel LAB 01/28/25 Verified 05:00 Basic Metabolic Panel LAB 01/29/25 Verified 05:00 Basic Metabolic Panel LAB 01/30/25 Verified 05:00 Basic Metabolic Panel LAB 01/31/25 Verified 05:00 Complete Blood Count LAB 01/24/25 Logged 10:29 Communication Order ORDERS 01/24/25 Transmitted 10:29 * Radiologist Consult CONS 01/24/25 Transmitted 10:59 Communication Order ORDERS 01/24/25 Transmitted 11:00 Dietary Evaluation Review Comments: Nutrition Recommendation: 1) Continue current POC 2) Monitor PO intake, lab values, weight trend, and I/O Expected Outcomes/Goals: To meet >75% estimated needs Lab values to improve Fu 3-5 days GAIL SANDS MD Jan 24, 2025 12:23
[2025-01-24 12:34] LABS: Total Cells Counted 100.0 (100)
[2025-01-24] MEDS: TAMSULOSIN HYDROCHLORIDE 0.4 MG CAP PO SCH (13:15)
[2025-01-24 13:20] LABS: Hematocrit 34.2 % (41.0-53.0); Hemoglobin 12.2 g/dL (13.5-17.5); Mean Corpuscular Hemoglobin 33.0 pg (28.0-32.0); Mean Corpuscular Volume 92.7 fL (80.0-100.0)
[2025-01-24 13:32] LABS: Anion Gap 15 (5-15); Carbon Dioxide 25 mmol/L (20-31)
[2025-01-24 13:33] LABS: Calcium 6.9 mg/dL (8.7-10.4); Chloride 91 mmol/L (98-107); Potassium 3.3 mmol/L (3.5-5.1); Sodium 131 mmol/L (136-145)
[2025-01-24 13:36] LABS: Uric Acid 9.5 mg/dL (3.7-9.2)
[2025-01-24 13:37] LABS: BUN/Creatinine Ratio 11.1 (10.0-20.0)
[2025-01-24 13:38] LABS: Blood Urea Nitrogen 69 mg/dL (9-23); Glucose 183 mg/dL (74-106)
[2025-01-24 14:52] LABS: Total Cells Counted 100.0 (100)
--- NOTE | 2025-01-24 15:34 | DVH ---
CHEST RADIOGRAPH Indication: abd pain Technique: Single frontal view of the chest was obtained Comparison: US KIDNEY on DOS: 01/22/25, CT CT AB PEL WO CON-NO ORAL OR IV on DOS: 01/21/25 FINDINGS: Lines and Tubes: None Lungs: No focal consolidation. Pleura: No effusion. No pneumothorax. Cardiomediastinal contours: Unremarkable Bones: No acute osseous abnormality. IMPRESSION: 1. No acute cardiopulmonary disease. HS:Y
[2025-01-24] MEDS: SODIUM CHLORIDE 0.9% 1,000 ML IV SCH (15:55)
[2025-01-24 16:07] LABS: Anti-Centromere B Antibody <0.2 AI (0.0-0.9); Anti-Jo-1 Antibody <0.2 AI (0.0-0.9); Anti-dsDNA Antibody 4 IU/mL (0-9); Antichromatin Antibody <0.2 AI (0.0-0.9); Antiscleroderma-70 Antibody <0.2 AI (0.0-0.9); Sjogren's Anti-SS-A Antibody <0.2 AI (0.0-0.9); Sjogren's Anti-SS-B Antibody <0.2 AI (0.0-0.9)
[2025-01-24] MEDS: ALLOPURINOL 100 MG TAB PO SCH (22:29)
[2025-01-25] VITALS (7 sets, daily range): BP systolic 129–161; BP diastolic 72–99; PULSE 72–81; RESP 18–20; TEMP 96.6–97.9; O2SAT 97–100
[2025-01-25 02:07] LABS: Chlamydia Trachomatis, NAA Negative (Negative); Neisseria gonorrhoeae, NAA Negative (Negative)
[2025-01-25] MEDS: PANTOPRAZOLE 40 MG TAB PO SCH (06:27)
[2025-01-25 07:37] LABS: Hematocrit 32.8 % (41.0-53.0); Hemoglobin 11.5 g/dL (13.5-17.5); Mean Corpuscular Hemoglobin 33.3 pg (28.0-32.0); Mean Corpuscular Volume 94.9 fL (80.0-100.0)
[2025-01-25 07:50] LABS: Alkaline Phosphatase 72 U/L (46-116); Anion Gap 17 (5-15); BUN/Creatinine Ratio 10.6 (10.0-20.0); Carbon Dioxide 22 mmol/L (20-31); Potassium 4.0 mmol/L (3.5-5.1)
[2025-01-25 08:00] LABS: Sodium 128 mmol/L (136-145)
[2025-01-25 08:01] LABS: Alanine Aminotransferase 43 U/L (7-40); Albumin 2.7 g/dL (3.2-4.8); Bilirubin, Total 1.9 mg/dL (0.2-1.0); Blood Urea Nitrogen 79 mg/dL (9-23); Calcium 6.0 mg/dL (8.7-10.4); Chloride 89 mmol/L (98-107); Glucose 155 mg/dL (74-106); Total Protein 9.1 g/dL (5.7-8.2)
[2025-01-25 08:24] LABS: Total Cells Counted 100.0 (100)
--- NOTE | 2025-01-25 09:40 | DVHPN2 ---
Progress Note Date Seen: Jan 25, 2025 Medical Necessity Reason Pt with a Central, PICC or Fol: Yes The following are medically ne: Kaplan Catheter Reason for kaplan catheter: Bladder Retention/Obstruc, Strict I&O Subjective Patient reports: Other (lethargic) Review of Systems: Deferred Objective vital signs Vital Sign Date Time Temp Pulse Resp B/P (MAP) Pulse Ox O2 Delivery O2 Flow Rate FiO2 01/25/25 08:53 96.6 74 20 137/90 (106) 97 96.6 01/24/25 20:00 Room Air* 0 21 Total Intake and Output 01/24/25 01/24/25 01/25/25 15:00 23:00 07:00 Intake Total 150 ml Output Total 750 ml Balance -600 ml medications Current Medications Medications Dose Ordered Sig/Nghia Route Start Time Stop Time Status Last Admin Dose Admin Multivit/Ca Carb/ B Cmplx/FA/Prenat 1 tab DAILY PO 01/22/25 10:00 01/24/25 11:50 1 TAB Sodium Chloride 10 ml Q8HR IV 01/21/25 22:00 01/25/25 06:27 10 ML Ondansetron HCl 4 mg Q4HP PRN IV 01/21/25 16:15 Docusate Sodium 100 mg BIDPRN PRN PO 01/21/25 16:15 Acetaminophen 650 mg Q6HP PRN PO 01/21/25 16:15 Nitroglycerin 0.4 mg Q5MINP PRN SL 01/21/25 17:30 Morphine Sulfate 2 mg Q30M PRN IV 01/21/25 17:30 01/24/25 05:53 2 MG Methylprednisolone Sodium Succinate 1,000 mg DAILY IV 01/22/25 20:45 01/24/25 10:01 UNV Amlodipine Besylate 10 mg DAILY PO 01/24/25 10:00 01/24/25 11:50 10 MG Losartan Potassium 75 mg DAILY PO 01/24/25 10:00 01/24/25 11:50 75 MG Allopurinol 100 mg HS PO 01/24/25 22:00 01/24/25 22:29 100 MG Rasburicase 5 mg/ Sodium Chloride 50 ml @ 50 mls/hr BID IV 01/24/25 10:00 Hold Ceftriaxone Sodium 50 ml @ 100 mls/hr DAILY@09 IV 01/24/25 09:00 01/24/25 11:50 100 MLS/HR Acetaminophen/ Hydrocodone Bitart 1 tab Q4HP PRN PO 01/24/25 03:45 01/25/25 04:53 1 TAB Tamsulosin HCl 0.4 mg QPM PO 01/24/25 13:15 Pantoprazole Sodium 40 mg DAILY@0600 PO 01/25/25 06:00 01/25/25 06:27 40 MG Examination: GENERAL:Abnormal, MSK:Abnormal, SKIN:Abnormal, NEURO:Abnormal laboratory and microbiology Laboratory Tests 01/25/25 06:21 Test 01/25/25 06:21 Range/Units Serum Glucose 155 H 74-106 mg/dL Microbiology Date/Time Source Procedure Growth Status 01/23/25 00:30 Voided Urine Urine Culture - Preliminary Resulted 01/22/25 10:19 Blood Blood Culture - Preliminary NO GROWTH AFTER 48 HOURS OF INCUBATION. Resulted Problem List/Assessment/Plan Problem List/Assessment/Plan Acute kidney injury---unknown etiology for now likely acute tubular necrosis however rule out glomerular pathology//questionable tumor lysis syndrome in differential Sepsis-?? Pneumonia Rule out lymphoma Given lymphadenopathy status post lymph node biopsy Thrombocytopenia Hyponatremia Metabolic acidosis anion gap Hyperuricemia Paraproteinemia Hypocalcemia Hyperphosphatemia Hyponatremia recs +dayton,cosmetology educator ab pending Anca panel, anti-GBM antibody,low complement level C3, C4,myeloma panel high kappa ,ratio looks ok kidney biopsy pending dc Bumex drip Antibiotics per primary team Steroids IV as ordered- Patient will need renal replacement therapy for solute and volume clearance He will also need kidney biopsy for definitive diagnosis after dialysis s/p IR guided tunneled catheter Recommend Heme-Onc consult Recommend rheum /ID consult recommend Higher level of care HD today vs tomorrow based on staffing Plan discussed with: Patient My Orders My Orders Orders - GAIL SANDS MD Procedure Category Date Status Time Basic Metabolic Panel LAB 01/26/25 Verified 05:00 Basic Metabolic Panel LAB 01/27/25 Verified 05:00 Basic Metabolic Panel LAB 01/28/25 Verified 05:00 Basic Metabolic Panel LAB 01/29/25 Verified 05:00 Basic Metabolic Panel LAB 01/30/25 Verified 05:00 Basic Metabolic Panel LAB 01/31/25 Verified 05:00 Communication Order ORDERS 01/24/25 Transmitted 10:29 * Radiologist Consult CONS 01/24/25 Transmitted 10:59 Communication Order ORDERS 01/24/25 Transmitted 11:00 Dietary Evaluation Review Comments: Nutrition Recommendation: 1) Continue current POC 2) Monitor PO intake, lab values, weight trend, and I/O Expected Outcomes/Goals: To meet >75% estimated needs Lab values to improve Fu 3-5 days GAIL SANDS MD Jan 25, 2025 09:40
--- NOTE | 2025-01-25 14:53 | DVHPNRES ---
Progress Note Date Seen: Jan 25, 2025 Resident Creating Document: CONSTANTINO GREENWOOD RESIDENT Medical Necessity Reason Pt with a Central, PICC or Fol: Yes The following are medically ne: Kaplan Catheter Reason for kaplan catheter: Bladder Retention/Obstruc, Strict I&O Subjective Review of Systems Patient is a 39-year-old male who denies any past medical history, presented to the ED with chief complaints of inability to urinate, shortness of breath mouth crusting, pain. He reported that he had difficulty urinating and was here 2 days ago with similar symptoms and had a Kaplan catheter placed but left AMA after. Patient was started on IV antibiotic vancomycin. past surgical history; denies Family history: liver cancer in father, breast cancer in grandmother personal history: patient smokes 2 cigarettes per day, drinks socially, uses marijuana, meth in the past, patient has prior STDs 2 years ago, he has unprotected sex with 1 partner 01/22/2025 Patient seen at bedside. Patient appears alert x3, in no distress, he complained of shortness of breath, unable to pee for 5 days bleeding and crusting of his lips with pain, pruritic rash which started in his wrists and progress to his arms , and in his legs. Patient did complain of night sweats, fevers, chills since 1 week. He also complained of white discharge from his penis, Since 1 month. Patient has diffuse lymphadenopathy. STD panel was ordered, radiologist was consulted for possible lymph node biopsy. Nephrology was consulted for possible dialysis. renal ultrasound 0.8 cm nonobstructive left kidney stone. Abdominal CT shows Severe hepatic steatosis., Retroperitoneal, pelvic side wall, inguinal lymphadenopathy. Lymphoma is a consideration., Punctate nonobstructive left kidney stone. Urinalysis shows positive signs of UTI. 01/23/25 patient seen at bedside. Patient appears alert x3, social service consult was placed for transfer to higher level of care for acute leukemia, lymphoma treatment. A tunnel catheter was placed for dialysis today and bled. lymph node biopsy was done. Patient was started on allopurinol 100 mg p.o., rasburicase IV b.i.d. 01/24/25 Patient seen At bedside. Patient is very tired, appeared confused, complains of abdominal pain. Kaplan catheter showed blood in the urine. Patients mouth appears black, is bleeding in the gums and tongue. patient underwent dialysis, patient was started on tamsulosin 0.[address] shows Multiple prominent bilateral axillary, mediastinal, and retroperitoneal nodes with splenomegaly. Findings are concerning for lymphoma. Recommend tissue sampling and PET-CT for further evaluation. social service was consulted for higher level of care, and stated that I HB declined to provide Auth for transfer. 01/25/2025 Patient seen at bedside. Patient is very tired, still complains of abdominal pain. Kaplan catheter still shows minimal blood. Patient is still bleeding in his gums and tongue. Patient underwent dialysis malignancy, patient was started on Nepro 240 mL p.o. b.i.d. Infectious Disease was consulted. Contacted [facility] for confirmation of his history but they did not pickup. pathology was contacted for peripheral smear and stated that the result will come on Tuesday. Pending lymph node biopsy results for higher level of care transfer. Objective vital signs Vital Sign Date Time Temp Pulse Resp B/P (MAP) Pulse Ox O2 Delivery O2 Flow Rate FiO2 01/25/25 13:01 97.5 74 20 139/88 (105) 97 97.5 01/24/25 20:00 Room Air* 0 21 Total Intake and Output 01/24/25 01/24/25 01/25/25 15:00 23:00 07:00 Intake Total 150 ml Output Total 750 ml Balance -600 ml medications Current Medications Medications Dose Ordered Sig/Nghia Route Start Time Stop Time Status Last Admin Dose Admin Multivit/Ca Carb/ B Cmplx/FA/Prenat 1 tab DAILY PO 01/22/25 10:00 01/25/25 10:18 1 TAB Sodium Chloride 10 ml Q8HR IV 01/21/25 22:00 01/25/25 14:26 10 ML Ondansetron HCl 4 mg Q4HP PRN IV 01/21/25 16:15 Docusate Sodium 100 mg BIDPRN PRN PO 01/21/25 16:15 Acetaminophen 650 mg Q6HP PRN PO 01/21/25 16:15 Nitroglycerin 0.4 mg Q5MINP PRN SL 01/21/25 17:30 Morphine Sulfate 2 mg Q30M PRN IV 01/21/25 17:30 01/24/25 05:53 2 MG Methylprednisolone Sodium Succinate 1,000 mg DAILY IV 01/22/25 20:45 01/24/25 10:01 UNV Amlodipine Besylate 10 mg DAILY PO 01/24/25 10:00 01/25/25 10:19 10 MG Losartan Potassium 75 mg DAILY PO 01/24/25 10:00 01/25/25 10:18 75 MG Allopurinol 100 mg HS PO 01/24/25 22:00 01/24/25 22:29 100 MG Rasburicase 5 mg/ Sodium Chloride 50 ml @ 50 mls/hr BID IV 01/24/25 10:00 Hold Ceftriaxone Sodium 50 ml @ 100 mls/hr DAILY@09 IV 01/24/25 09:00 01/25/25 10:17 100 MLS/HR Acetaminophen/ Hydrocodone Bitart 1 tab Q4HP PRN PO 01/24/25 03:45 01/25/25 04:53 1 TAB Tamsulosin HCl 0.4 mg QPM PO 01/24/25 13:15 Pantoprazole Sodium 40 mg DAILY@0600 PO 01/25/25 06:00 01/25/25 06:27 40 MG Enteral Nutritional Formula 240 ml BIDWM PO 01/25/25 18:00 Examination General: Patient alert and oriented in person, place and time. Patient following commands. HEENT: Normocephalic, atraumatic, moist mucous membranes, mouth leading, dark in color , diffuse lymphadenopathy Respiratory/pulmonary: Clear lungs bilaterally, vesicular murmurs present in almost all lung mckinney, no associated crackles or wheezes. Cardiovascular: Normal heart sounds S1 and S2 with no associated murmurs Abdomen: Abdomen nondistended, there is no pain to palpation in any of the abdominal quadrants, no palpable masses. Extremities: There is no peripheral edema present at the lower extremities. Peripheral Pulses: 3+ Radial (R). 3+ Radial (L). 3+ Dorsalis pedis (R). 3+ Dorsalis pedis(L) Skin: Rashes on bilateral arms and legs, with pruritus Neurological: Intact cranial nerves with no focal neurologic deficits laboratory and microbiology Laboratory Tests 01/25/25 06:21 Test 01/25/25 06:21 Range/Units Serum Glucose 155 H 74-106 mg/dL Microbiology Date/Time Source Procedure Growth Status 01/23/25 00:30 Voided Urine Urine Culture - Final Complete 01/22/25 10:19 Blood Blood Culture - Preliminary NO GROWTH AFTER 72 HOURS OF INCUBATION. Resulted Problem List/Assessment/Plan Problem List/Assessment/Plan # generalized lymphadenopathy due to possible lymphoma/HIV/viral syndrome # possible tumor lysis syndrome # rule out possible Kaposi sarcoma vs HIV -IR consulted for possible lymph node biopsy -lymph node biopsy done, pending result - nephrology on board, recommended kidney biopsy -CT abdomen showed Multiple prominent bilateral axillary, mediastinal, and retroperitoneal nodes with splenomegaly. Findings are concerning for lymphoma. -ceftriaxone - [place] -multivitamin - public Health was consulted for his history # sepsis due to UTI # Acute complicated UTI # 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 # Anuria # hyperuricemia # hyperphosphatemia #Thrombocytopenia #Hyponatremia #Metabolic acidosis anion gap #Paraproteinemia #Hypocalcemia - KEIRA positive - patient has Kaplan catheter with minimal urine - nephrology consulted for possible dialysis - social service consulted for higher level of care - tunnel catheter placed for dialysis - patient given tamsulosin 0.4 mg p.o. - Patient given Nepro 240ml, b.i.d. # rule out STI # unsafe sexual practices - ordered hepatitis-B, hepatitis-C, syphilis, CMV, EBV - HIV negative - EBV antibody positive - KEIRA positive - # polysubstance abuse disorder - patient counseled on risks of using drugs, cigarettes, alcohol for more than 17 minutes PUD PPX: Protonix 40 mg DVT PPX: Not Indicated Goals of care addressed with the patient for more than 27 minutes: Full code status Case discussed with , patient and nurse Plan discussed with: Patient My Orders My Orders Orders - CONSTANTINO GREENWOOD Procedure Category Date Status Time Pantoprazole Tablet PHA 01/25/25 In Process (Protonix Tablet) 06:00 * Infectious Lynda- Dr. DIAS 01/25/25 Transmitted K Addy 11:31 Nutritional PHA 01/25/25 In Process Supplements (Nepro 18:00 Dietary Evaluation Review Comments: Nutrition Recommendation: 1) Continue current POC 2) Monitor PO intake, lab values, weight trend, and I/O Expected Outcomes/Goals: To meet >75% estimated needs Lab values to improve Fu 3-5 days Date of Service: Jan 25, 2025 Billing Provider: FLOR SIMMONS MD Common Visit Codes: [id number] INP/OBS CARE(HIGH) CONSTANTINO GREENWOOD RESIDENT Jan 25, 2025 14:53 FLOR SIMMONS MD Jan 25, 2025 23:35
[2025-01-25] MEDS ORDERED: Ensure HIGH Protein Chocolate 8oz Bottle PO SCH (18:00)
[2025-01-25] MEDS: Nepro With Carbsteady ButterPecan 8oz Carton PO SCH (18:05)
--- NOTE | 2025-01-25 22:06 | DVHINCON2 ---
Date of service: Jan 25, 2025 Family History: Patient reports no known family medical history. Allergies: Coded Allergies: NO KNOWN ALLERGIES (Unverified , 01/20/25) Home Meds No Active Prescriptions or Reported Meds Current Medications Current Medications Medications (Trade) Dose Ordered Sig/Nghia Route PRN Reason Start Time Stop Time Status Last Admin Allopurinol (Zyloprim Tablet) 100 mg HS PO 01/24/25 22:00 01/25/25 21:10 Pantoprazole Sodium (Protonix Tablet) 40 mg DAILY@0600 PO 01/25/25 06:00 01/25/25 06:27 Enteral Nutritional Formula (Ensure High Protein) 240 ml BIDWM PO 01/25/25 18:00 01/25/25 14:23 DC Enteral Nutritional Formula (Nepro With Carbsteady) 240 ml BIDWM PO 01/25/25 18:00 01/25/25 18:05 Vital Signs Vital Signs Date Time Temp Pulse Resp B/P (MAP) Pulse Ox O2 Delivery O2 Flow Rate FiO2 01/25/25 21:00 97.0 81 19 129/72 (91) 100 97.0 01/25/25 08:00 Room Air* 0 21 Labs/Diagnostic Data Labs Test 01/25/25 06:21 01/24/25 12:56 01/23/25 23:04 01/23/25 06:34 Range/Units White Blood Count 13.1 H 4.4-10.8 10^3/uL Red Blood Count 3.45 L 4.5-5.90 10^6/uL Hemoglobin 11.5 L 13.5-17.5 g/dL Hematocrit 32.8 L 41.0-53.0 % Mean Corpuscular Volume 94.9 80.0-100.0 fL Mean Corpuscular Hemoglobin 33.3 H 28.0-32.0 pg Mean Corpuscular Hemoglobin Concent 35.1 32.0-36.0 g/dL Red Cell Distribution Width 14.7 H 11.8-14.3 % Platelet Count 110 L 140-450 10^3/uL Mean Platelet Volume 9.9 6.9-10.8 fL Neutrophils (%) (Auto) 37.0-80.0 % Lymphocytes (%) (Auto) 10.0-50.0 % Monocytes (%) (Auto) 0.0-12.0 % Basophils (%) (Auto) 0.0-2.0 % Neutrophils # (Auto) 1.6-8.6 10 ^3/uL Lymphocytes # (Auto) 0.4-5.4 10 ^3/uL Monocytes # (Auto) 0-1.3 10 ^3/uL Differential Total Cells Counted 100.0 100 Neutrophils % (Manual) 72 37.0-80.0 Band Neutrophils % (Manual) 2 Lymphocytes % (Manual) 20 10.0-50.0 Monocytes % (Manual) 5 0-12 Eosinophils % (Manual) 1 0-7 Basophils % (Manual) 0 0.0-2.0 Metamyelocytes % (manual) 0 Myelocytes % (Manual) 0 Promyelocytes % (Manual) 0 Blast Cells % (Manual) 0 Reactive Lymphocytes 0 Platelet Estimate Decreased Sodium Level 128 L 136-145 mmol/L Potassium Level 4.0 3.5-5.1 mmol/L Chloride Level 89 L 98-107 mmol/L Carbon Dioxide Level 22 20-31 mmol/L Anion Gap 17 H 5-15 Blood Urea Nitrogen 79 H 9-23 mg/dL Creatinine 7.42 H 0.700-1.30 mg/dL Glomerular Filtration Rate Calc 9 >90 mL/min BUN/Creatinine Ratio 10.6 10.0-20.0 Serum Glucose 155 H 74-106 mg/dL Calcium Level 6.0 *L 8.7-10.4 mg/dL Total Bilirubin 1.9 H 0.2-1.0 mg/dL Aspartate Amino Transferase (AST) 43 H 13-40 U/L Alanine Aminotransferase (ALT) 43 H 7-40 U/L Alkaline Phosphatase 72 46-116 U/L Total Protein 9.1 H 5.7-8.2 g/dL Albumin 2.7 L 3.2-4.8 g/dL Uric Acid 9.5 H 3.7-9.2 mg/dL Phosphorus Level 7.7 H 2.4-5.1 mg/dL Lactate Dehydrogenase 474 H 120-246 U/L Prothrombin Time 19.2 H 9.3-11.8 sec Prothrombin Time INR 1.93 H 0.9-1.15 Activated Partial Thromboplast Time 33.2 24.5-34.5 SEC Fibrinogen 180 177-375 mg/dL Serum Immunoglobulin G 4963 H 603-1613 mg/dL Immunoglobulin A 526 H 90-386 mg/dL Immunoglobulin M 121 20-172 mg/dL Anti-Nuclear Antibody Comment Comment . ANGI-1 Antibody <0.2 0.0-0.9 AI SS-A/Ro Antibody <0.2 0.0-0.9 AI SS-B/La Antibody <0.2 0.0-0.9 AI Sm Antibody <0.2 0.0-0.9 AI COMMISSIONING MANAGER Antibody 1.7 H 0.0-0.9 AI Scl-70 (Scleroderma) Antibody <0.2 0.0-0.9 AI Anti-Double Strand DNA Antibody 4 0-9 IU/mL Chromatin Antibody <0.2 0.0-0.9 AI Centromere B Antibody <0.2 0.0-0.9 AI Complement C3 74 L 82-167 mg/dL Complement C4 4 L 12-38 mg/dL Free Rocheport Light Chains, Quant 787.7 H 3.3-19.4 mg/L Free Rocheport/Lambda Light Chain Ratio 1.63 0.26-1.65 Test 01/23/25 00:30 01/22/25 12:58 01/22/25 10:19 01/21/25 20:01 Range/Units Urine Creatinine 128.70 H 30.0-125.0 mg/dL Urine Protein/Creatinine Ratio 2.22 Urine Sodium 63 40-220 mmol/L Urine Total Protein 285.3 H 1-14 mg/dL Urine Opiates Screen Neg NEGATIVE Urine Fentanyl Screen Neg NEGATIVE Urine Barbiturates Screen Neg NEGATIVE Urine Phencyclidine Screen Neg NEGATIVE Urine Amphetamines Screen Neg NEGATIVE Urine Benzodiazepines Screen Neg NEGATIVE Urine Cocaine Screen Neg NEGATIVE Urine Cannabinoids Screen Neg NEGATIVE Chlamydia trachomatis (JUAN) Negative Negative Neisseria gonorrhoeae (JUAN) Negative Negative Anti-Nuclear Antibody Screen Positive H Negative Cytomegalovirus IgG Antibody <0.60 0.00-0.59 U/mL Cytomegalovirus IgM Antibody <30.0 0.0-29.9 AU/mL Erythrocyte Sedimentation Rate 86 H 0-20 mm/hr Reticulocyte Count (auto) 0.89 0.5-1.5 % Lactic Acid Level 1.9 0.4-2.0 mmol/L C-Reactive Protein High Sensitivity 10.22 H <1.0 mg/dL Parathyroid Hormone (Intact) 170.4 H 18.4-80.1 pg/mL Random Vancomycin Level 16.6 H 5-10 ug/mL Plasma/Serum Blood Alcohol < 3.0 <10 mg/dL Treponema pallidum Antibody Non-reactive Negative Olivia-Centeno Virus Capsid Ag IgG Ab 82.2 H 0.0-17.9 U/mL Olivia-Centeno Virus Capsid Ag IgM Ab 48.6 H 0.0-35.9 U/mL Olivia-Centeno Early Antigen IgG Ab >600.0 H 0.0-17.9 U/mL Olivia-Centeno Virus Ab Interpret Comment . Hepatitis B Surface Antigen Negative Negative Hepatitis C Antibody Negative Negative HIV (1&2) Antibody Negative Negative Urine Color [place] H Yellow Urine Clarity Ex.turbid Clear Urine pH 5.5 5.0-9.0 Urine Specific [place] 1.027 1.001-1.035 Urine Protein 2+ H Negative Urine Ketones Trace Negative Urine Blood 3+ H Negative /uL Urine Nitrite Negative Negative Urine Bilirubin 1+ Negative Urine Urobilinogen Normal Negative mg/dL Urine Leukocyte Esterase 3+ Negative /uL Urine RBC 387 0 - 3 /hpf Urine Microscopic WBC 100 H 0-3 /HPF Urine Squamous Epithelial Cells Mod <5 /hpf Urine Amorphous Crystals Few None Seen /hpf Urine Bacteria Few H None Seen /hpf Urine Hyaline Casts Few 0 - 2 /lpf Urine Mucus Few None Seen Urine Glucose 1+ H Normal mg/dL Test 01/21/25 13:17 Range/Units Nucleated Red Blood Cells 1.0 % Hemoglobin A1c 5.2 <5.7 % A1C Microbiology Date/Time Source Procedure Growth Status 01/23/25 00:30 Voided Urine Urine Culture - Final Complete 01/22/25 10:19 Blood Blood Culture - Preliminary NO GROWTH AFTER 72 HOURS OF INCUBATION. Resulted Problems(with codes): (1) Leukocytosis, unspecified (2) Electrolyte imbalance (3) Generalized weakness (4) Acute renal failure (5) Leukocytosis Plan/Recommendation ASSESSMENT AND PLAN: ID Problem List: \-- Acute renal failure \-- Anuria \-- Lymphadenopathy (retroperitoneal, pelvic side wall, inguinal, mediastinal, axillary) \-- Possible lymphoma \-- Infectious mononucleosis (EBV) \-- Splenomegaly \-- Leukocytosis \-- Throat and mouth pain Assessment: This is a 39 y.o. male with no past medical or surgical history, presenting with anuria and complaints of throat and mouth pain. The patient has a history of recent Meadows placement, which was followed by an AMA discharge, and now re- presents to the hospital. On arrival, significant laboratory findings included a white blood cell count of 21.8 (down-trending to 13.1), persistent thrombocytopenia (platelets 116), hyponatremia (Na 132), severe azotemia (BUN 84-127), markedly elevated creatinine (9.5610.69), hypocalcemia (Ca 7.4), and mild indirect hyperbilirubinemia (total bili 2.4). Sedimentation rate is 86, CRP 10.22, and INR is elevated at 1.93. Imaging studies reveal: -Chest radiograph with increased interstitial prominence concerning for pneumonia; CT chest without acute cardiopulmonary disease but with splenomegaly and multiple enlarged mediastinal and axillary nodes. -CT abdomen/pelvis: severe hepatic steatosis, punctate nonobstructive left kidney stone, retroperitoneal and pelvic/inguinal lymphadenopathy, splenomegaly. -Renal US: left kidney stone. -Ultrasound-guided left inguinal node biopsy performed, pending results. Infectious workup: -Blood cultures negative to date; urine cultures positive (details not specified). -Serologies: negative RPR, HIV, gonorrhea, chlamydia. -EBV IgM and IgG both positive; heterophile antibody testing recommended to clarify infectious status. Clinical course: -Empiric antibiotics initiated (vancomycin, azithromycin), now transitioned to ceftriaxone due to worsening renal function, with eventual plan to discontinue ceftriaxone given no ongoing infectious signs except for lymphadenopathy. -Patient is alert and oriented, endorses generalized weakness, persistent anuria with minimal Meadows output. Consultations: -Nephrology (Dr. Concepcion Stoll) engaged for renal dysfunction. -Awaiting hematology-oncology evaluation for lymphoproliferative process. Current working differential includes acute renal failure possibly secondary to lymphoproliferative disorder (including lymphoma), infectious mononucleosis, HLH, or other causes. No high fevers or robert clinical instability at this time. Plan: \-- Monitor for evolution of symptoms and laboratory abnormalities (including ferritin, D-dimer, fibrinogen). \-- Discontinue antibiotics (ceftriaxone) as clinically indicated and in absence of ongoing infection. \-- Continue close monitoring of renal function; follow-up with nephrology for ongoing management of acute on chronic renal dysfunction. \-- Hematology-oncology to follow for evaluation of lymphadenopathy, possible lymphoma versus other lymphoproliferative disorder; pending biopsy results. \-- Consider heterophile antibody test to clarify EBV illness phase. \-- Monitor for HLH: check ferritin, D-dimer, fibrinogen as indicated. \-- Symptomatic management for throat and mouth pain. \-- Follow-up on urine culture final results for further guidance. \-- Serial monitoring of labs (CBC, CMP, coags). \-- Monitor fluid and electrolyte status. \-- Infection precautions as per standard protocols. \*Assessment and plan was discussed with the patient as written above \*Plan is subject to change pending incorporation of new incoming information/diagnostics. Updates may be added as addendum at the bottom (OR TOP) of this note Thank you for interesting consult. ID will continue to follow. Please contact Infectious Disease for any questions or concerns. Boyd Daly M.D. [facility] Ph: ? Teams text: [email or web address] Electronically signed by: Boyd Daly MD, 01/25/2025 \ History: The patient's chart and medications were reviewed in detail and the patient was seen and examined. History obtained from: patient Ian Sweeney is a 39 y.o. male, with no known past medical or surgical history, presenting with anuria and generalized throat and mouth pain. Recent hospitalization at [facility] for similar complaints; patient had a Meadows placed and left AMA. Re-presents with persistent anuria, weakness, and abnormal laboratory findings as described above. Review of Systems: A complete 10 system review of systems was completed and negative except as noted in the HPI or here. ROS: -CONSTITUTIONAL: Endorses generalized weakness. Denies weight loss, fever, and chills. -HEENT: Endorses throat and mouth pain. Denies changes in vision/hearing. -RESPIRATORY: Denies shortness of breath and cough. -CV: Denies palpitations and chest pain. -GI: Denies abdominal pain, nausea, vomiting, diarrhea. -: Endorses anuria, minimal Meadows output. Denies dysuria/urinary frequency. -MSK: Denies myalgia and joint pain. -SKIN: Denies rash and pruritus. -NEUROLOGICAL: Denies headache and syncope. -PSYCHIATRIC: Denies recent changes in mood, anxiety, and depression. Past Medical History: Diagnosis Date No known past medical history Past Surgical History: History reviewed. No pertinent surgical history. Home Medications: Prior to Admission medications Medication Sig No home medications reported. Allergies: Allergies No Known Allergies Family History: Family History Not provided in transcript. Family Status Not provided in transcript. Social History: Social History Socioeconomic History Marital status: Not provided Number of children: Not provided Years of education: Not provided Highest education level: Not provided Occupational History Not provided Tobacco Use Smoking status: Not provided Vaping Use Vaping status: Not provided Substance and Sexual Activity Alcohol use: Not provided Drug use: Not provided Sexual activity: Not provided Other Topics Concern Not provided Social History Narrative Not provided Social Determinants of Health Not provided in transcript. Objective: Vital Signs on Arrival: Temp: 98.3 F BP: 100/65 Pulse: 99 Resp: 18 SpO2: 96 % Most Recent Vital Signs: Temp: 98.3 F BP: 106/65 Pulse: 99 Resp: 18 SpO2: 96 % on room air Admission Weight: Not provided in transcript. BMI: Not provided in transcript. Physical Exam: General: NAD Neck: Supple. No masses. HEENT: PERRL. Normal lids and conjunctiva. Moist mucous membranes. Oropharynx without lesions, exudates or excessive erythema. Normal appearance of the external aspects of the nose and ears. Heart: Regular rhythm, normal rate. No murmur. No lower extremity edema. Lungs: Diminished breath sounds. Normal respiratory effort. Clear to auscultation bilaterally. No wheezes. No crackles. Abdomen: Soft. Non-tender. Non-distended. No masses or abdominal hernia. Msk: No digital cyanosis. Normal strength and tone in all 4 limbs Skin: Warm and dry, no rashes. Neuro: Alert. No facial droop or slurred speech. Extra-ocular movements intact. Sensation intact to soft touch in all 4 limbs. Psych: Appropriate mood. Full affect. Oriented to person, place, time, and situation. Lines: Active Lines Not provided in transcript. Diagnostic Studies: Available diagnostic studies were reviewed personally. Significant relevant results and findings are outlined below or addressed in the Assessment and Plan above. Pertinent Imaging: Recent Results: Chest X-ray: -Increased interstitial prominence concerning for possible pneumonia. Chest CT: -No acute cardiopulmonary disease. -Multiple prominent bilateral axillary and mediastinal lymph nodes, splenomegaly. Abdominal/Pelvic CT: -Severe hepatic steatosis. -Punctate nonobstructive left kidney stone. -Retroperitoneal, pelvic side wall, and inguinal lymphadenopathy. -Splenomegaly. Renal Ultrasound: -0.8 cm non-obstructive left kidney stone. Other Diagnostics: -Ultrasound-guided left inguinal lymph node biopsy performed; results pending. Laboratory Results: -Initial WBC 21.8; trending down to 13.1. -Persistent thrombocytopenia (platelets 116). -BUN 43457, Cr 9.5610.69, Ca 7.4, total bilirubin 2.4. -Sed rate 86, CRP 10.22, INR 1.93. -Urine cultures positive (details not specified). -Blood cultures negative. -EBV IgM and IgG positive, suggesting acute or recent infection. -Negative RPR, HIV, gonorrhea, chlamydia. -Heterophile antibody testing suggested for further EBV assessment. Electronically signed by: Boyd Daly MD, 01/25/2025 Plan discussed with: Patient BOYD DALY MD Jan 25, 2025 22:06
[2025-01-26 05:00] VITALS: BP 140/84; PULSE 90; RESP 19; TEMP 97.3; O2SAT 95
[2025-01-26 08:01] LABS: Hematocrit 32.0 % (41.0-53.0); Hemoglobin 11.3 g/dL (13.5-17.5); Mean Corpuscular Hemoglobin 33.3 pg (28.0-32.0); Mean Corpuscular Volume 94.4 fL (80.0-100.0); Nucleated Red Blood Cells % 0.3 %
[2025-01-26 08:07] LABS: Anion Gap 17 (5-15); Potassium 3.7 mmol/L (3.5-5.1)
[2025-01-26 08:13] LABS: BUN/Creatinine Ratio 11.2 (10.0-20.0)
[2025-01-26 08:14] LABS: Blood Urea Nitrogen 64 mg/dL (9-23); Calcium 6.2 mg/dL (8.7-10.4); Carbon Dioxide 19 mmol/L (20-31); Chloride 93 mmol/L (98-107); Glucose 141 mg/dL (74-106); Sodium 129 mmol/L (136-145)
--- NOTE | 2025-01-26 08:40 | DVHPN2 ---
Progress Note Date Seen: Jan 26, 2025 Medical Necessity Reason Pt with a Central, PICC or Fol: Yes The following are medically ne: Kaplan Catheter Reason for kaplan catheter: Bladder Retention/Obstruc, Strict I&O Subjective Patient reports: Feels better, Other Review of Systems: MSK:Abnormal Objective vital signs Vital Sign Date Time Temp Pulse Resp B/P (MAP) Pulse Ox O2 Delivery O2 Flow Rate FiO2 01/26/25 05:00 97.3 90 19 140/84 (102) 95 97.3 01/25/25 20:00 Room Air* 0 21 Total Intake and Output 01/25/25 01/25/25 01/26/25 15:00 23:00 07:00 Intake Total 290 ml 1200 ml Output Total 500 ml Balance 290 ml 700 ml medications Current Medications Medications Dose Ordered Sig/Nghia Route Start Time Stop Time Status Last Admin Dose Admin Multivit/Ca Carb/ B Cmplx/FA/Prenat 1 tab DAILY PO 01/22/25 10:00 01/25/25 10:18 1 TAB Sodium Chloride 10 ml Q8HR IV 01/21/25 22:00 01/26/25 06:19 10 ML Ondansetron HCl 4 mg Q4HP PRN IV 01/21/25 16:15 Docusate Sodium 100 mg BIDPRN PRN PO 01/21/25 16:15 Acetaminophen 650 mg Q6HP PRN PO 01/21/25 16:15 Nitroglycerin 0.4 mg Q5MINP PRN SL 01/21/25 17:30 Morphine Sulfate 2 mg Q30M PRN IV 01/21/25 17:30 01/24/25 05:53 2 MG Methylprednisolone Sodium Succinate 1,000 mg DAILY IV 01/22/25 20:45 01/24/25 10:01 UNV Amlodipine Besylate 10 mg DAILY PO 01/24/25 10:00 01/25/25 10:19 10 MG Losartan Potassium 75 mg DAILY PO 01/24/25 10:00 01/25/25 10:18 75 MG Allopurinol 100 mg HS PO 01/24/25 22:00 01/25/25 21:10 100 MG Acetaminophen/ Hydrocodone Bitart 1 tab Q4HP PRN PO 01/24/25 03:45 01/25/25 04:53 1 TAB Tamsulosin HCl 0.4 mg QPM PO 01/24/25 13:15 01/25/25 18:05 0.4 MG Pantoprazole Sodium 40 mg DAILY@0600 PO 01/25/25 06:00 01/26/25 06:18 40 MG Enteral Nutritional Formula 240 ml BIDWM PO 01/25/25 18:00 01/25/25 18:05 240 ML Calcium Acetate 1,334 mg TIDWMEALS PO 01/26/25 12:00 UNV Examination: GENERAL:Abnormal, SKIN:Abnormal laboratory and microbiology Laboratory Tests 01/26/25 05:24 Test 01/26/25 05:24 Range/Units Serum Glucose 141 H 74-106 mg/dL Microbiology Date/Time Source Procedure Growth Status 01/23/25 00:30 Voided Urine Urine Culture - Final Complete 01/22/25 10:19 Blood Blood Culture - Preliminary NO GROWTH AFTER 72 HOURS OF INCUBATION. Resulted Problem List/Assessment/Plan Problem List/Assessment/Plan Acute kidney injury---unknown etiology for now likely acute tubular necrosis however rule out glomerular pathology//questionable tumor lysis syndrome in differential---needing dialysis Sepsis-?? Pneumonia Rule out lymphoma Given lymphadenopathy status post lymph node biopsy Hypertension Thrombocytopenia Hyponatremia Metabolic acidosis anion gap Hyperuricemia Paraproteinemia Hypocalcemia Hyperphosphatemia Hyponatremia recs Next dialysis on Tuesday +[place],dietary aid ab pending Anca panel, anti-GBM antibody,low complement level C3, C4,myeloma panel high kappa ,ratio looks ok kidney biopsy pending Antibiotics per primary team s/p pulse dose Steroids IV He will also need kidney biopsy for definitive diagnosis after dialysis s/p IR guided tunneled catheter Recommend Heme-Onc consult Recommend rheum /ID consult recommend Higher level of care Plan discussed with: Patient My Orders My Orders Orders - GAIL SANDS MD Procedure Category Date Status Time Hemodialysis Orders ORDERS 01/25/25 Transmitted 11:39 Calcium Acetate PHA 01/26/25 Logged Capsule (Phoslo 12:00 * Senior Data Scientist CONS 01/26/25 Transmitted Consult Uric Acid LAB 01/26/25 In Process 08:26 Dietary Evaluation Review Comments: Nutrition Recommendation: 1) Continue current POC 2) Monitor PO intake, lab values, weight trend, and I/O Expected Outcomes/Goals: To meet >75% estimated needs Lab values to improve Fu 3-5 days GAIL SANDS MD Jan 26, 2025 08:40
[2025-01-26 09:00] VITALS: BP 118/71; PULSE 65; RESP 18; TEMP 97.7; O2SAT 97
[2025-01-26 09:18] LABS: Fibrinogen 158.0 mg/dL (177-375)
--- NOTE | 2025-01-26 11:51 | DVH ---
CLINICAL HISTORY: high d dimer 22.5 TECHNIQUE: Color and duplex doppler imagine of the bilateral lower extremity veins was performed. Ves melba compression and augmentation if possible was also performed. COMPARISON: None FINDINGS: Right lower Extremity: Right common femoral vein: Normal compressibility and flow. Right superficial femoral vein: Normal compressibility and flow. Right popliteal vein: Normal compressibility and flow. Proximal calf veins demonstrate flow. Left lower Extremity: Left common femoral vein: Normal compressibility and flow. Left superficial femoral vein: Normal compressibility and flow. Left popliteal vein: Normal compressibility and flow. Proximal calf veins demonstrate flow. IMPRESSION: NO SONOGRAPHIC EVIDENCE FOR DEEP VENOUS THROMBOSIS IN THE BILATERAL LOWER EXTREMITY VEINS.
[2025-01-26 13:00] VITALS: BP 135/85; PULSE 86; RESP 18; TEMP 97.8; O2SAT 99
[2025-01-26] MEDS: CALCIUM ACETATE 667 MG CAP PO SCH (14:06)
[2025-01-26 16:30] VITALS: BP 116/71; PULSE 79; RESP 18; TEMP 97.9; O2SAT 98
--- NOTE | 2025-01-26 17:09 | DVHPNRES ---
Progress Note Date Seen: Jan 26, 2025 Resident Creating Document: KAMALA DESIR RESIDENT Medical Necessity Reason Pt with a Central, PICC or Fol: No The following are medically ne: Kaplan Catheter Reason for kaplan catheter: Bladder Retention/Obstruc, Strict I&O Subjective Review of Systems Patient is a 39-year-old male who denies any past medical history, presented to the ED with chief complaints of inability to urinate, shortness of breath mouth crusting, pain. He reported that he had difficulty urinating and was here 2 days ago with similar symptoms and had a Kaplan catheter placed but left AMA after. Patient was started on IV antibiotic vancomycin. past surgical history; denies Family history: liver cancer in father, breast cancer in grandmother personal history: patient smokes 2 cigarettes per day, drinks socially, uses marijuana, meth in the past, patient has prior STDs 2 years ago, he has unprotected sex with 1 partner 01/22/2025 Patient seen at bedside. Patient appears alert x3, in no distress, he complained of shortness of breath, unable to pee for 5 days bleeding and crusting of his lips with pain, pruritic rash which started in his wrists and progress to his arms , and in his legs. Patient did complain of night sweats, fevers, chills since 1 week. He also complained of white discharge from his penis, Since 1 month. Patient has diffuse lymphadenopathy. STD panel was ordered, radiologist was consulted for possible lymph node biopsy. Nephrology was consulted for possible dialysis. renal ultrasound 0.8 cm nonobstructive left kidney stone. Abdominal CT shows Severe hepatic steatosis., Retroperitoneal, pelvic side wall, inguinal lymphadenopathy. Lymphoma is a consideration., Punctate nonobstructive left kidney stone. Urinalysis shows positive signs of UTI. 01/23/25 patient seen at bedside. Patient appears alert x3, social service consult was placed for transfer to higher level of care for acute leukemia, lymphoma treatment. A tunnel catheter was placed for dialysis today and bled. lymph node biopsy was done. Patient was started on allopurinol 100 mg p.o., rasburicase IV b.i.d. 01/24/25 Patient seen At bedside. Patient is very tired, appeared confused, complains of abdominal pain. Kaplan catheter showed blood in the urine. Patients mouth appears black, is bleeding in the gums and tongue. patient underwent dialysis, patient was started on tamsulosin 0.[address] shows Multiple prominent bilateral axillary, mediastinal, and retroperitoneal nodes with splenomegaly. Findings are concerning for lymphoma. Recommend tissue sampling and PET-CT for further evaluation. social service was consulted for higher level of care, and stated that I [facility] declined to provide Auth for transfer. 01/25/2025 Patient seen at bedside. Patient is very tired, still complains of abdominal pain. Kaplan catheter still shows minimal blood. Patient is still bleeding in his gums and tongue. Patient underwent dialysis malignancy, patient was started on Nepro 240 mL p.o. b.i.d. Infectious Disease was consulted. Contacted [facility] for confirmation of his history but they did not pickup. pathology was contacted for peripheral smear and stated that the result will come on Tuesday. Pending lymph node biopsy results for higher level of care transfer. 01/26/2025 Patient was seen at the bedside. Patient has no active complaints. I spoke to the family, both his mother and mother of his child, regarding an update that patient will be requiring dialysis on Tuesday and a possible kidney biopsy after dialysis according to nephrology. ID consult has suggested ceftriaxone to be discontinued, urine cultures, D-dimer levels which came back 22.5 ( venous Doppler sent and showed no sonographic evidence for DVT in bilateral lower extremities ), fibrinogen levels which came back 158 and ferritin levels which came back high to 2528.9. Uric Acid came back 10.8. I spoke to the disability case manager today- Ira, who is working on transferring the patient to [facility] as they have agreed to take the patient provided the biopsy reports and peripheral smear come back. She is working to get [facility]'s approval. Biopsy reports are still pending and patient has been counseled along with his family today. Objective vital signs Vital Sign Date Time Temp Pulse Resp B/P (MAP) Pulse Ox O2 Delivery O2 Flow Rate FiO2 01/26/25 16:30 97.9 79 18 116/71 (86) 98 97.9 01/26/25 08:00 Room Air* 0 21 Total Intake and Output 01/25/25 01/25/25 01/26/25 15:00 23:00 07:00 Intake Total 290 ml 1200 ml Output Total 500 ml Balance 290 ml 700 ml medications Current Medications Medications Dose Ordered Sig/Nghia Route Start Time Stop Time Status Last Admin Dose Admin Multivit/Ca Carb/ B Cmplx/FA/Prenat 1 tab DAILY PO 01/22/25 10:00 01/26/25 08:45 1 TAB Sodium Chloride 10 ml Q8HR IV 01/21/25 22:00 01/26/25 14:07 10 ML Ondansetron HCl 4 mg Q4HP PRN IV 01/21/25 16:15 Docusate Sodium 100 mg BIDPRN PRN PO 01/21/25 16:15 Acetaminophen 650 mg Q6HP PRN PO 01/21/25 16:15 Nitroglycerin 0.4 mg Q5MINP PRN SL 01/21/25 17:30 Morphine Sulfate 2 mg Q30M PRN IV 01/21/25 17:30 01/24/25 05:53 2 MG Methylprednisolone Sodium Succinate 1,000 mg DAILY IV 01/22/25 20:45 01/24/25 10:01 UNV Amlodipine Besylate 10 mg DAILY PO 01/24/25 10:00 01/26/25 08:45 10 MG Losartan Potassium 75 mg DAILY PO 01/24/25 10:00 01/26/25 08:45 75 MG Allopurinol 100 mg HS PO 01/24/25 22:00 01/25/25 21:10 100 MG Acetaminophen/ Hydrocodone Bitart 1 tab Q4HP PRN PO 01/24/25 03:45 01/25/25 04:53 1 TAB Tamsulosin HCl 0.4 mg QPM PO 01/24/25 13:15 01/25/25 18:05 0.4 MG Pantoprazole Sodium 40 mg DAILY@0600 PO 01/25/25 06:00 01/26/25 06:18 40 MG Enteral Nutritional Formula 240 ml BIDWM PO 01/25/25 18:00 01/26/25 08:44 240 ML Calcium Acetate 1,334 mg TIDWMEALS PO 01/26/25 12:00 01/26/25 14:06 1,334 MG Examination General: Patient alert and oriented in person, place and time. Patient following commands. HEENT: Normocephalic, atraumatic, moist mucous membranes, mouth leading, dark in color , diffuse lymphadenopathy Respiratory/pulmonary: Clear lungs bilaterally, vesicular murmurs present in almost all lung mckinney, no associated crackles or wheezes. Cardiovascular: Normal heart sounds S1 and S2 with no associated murmurs Abdomen: Abdomen nondistended, there is no pain to palpation in any of the abdominal quadrants, no palpable masses. Extremities: There is no peripheral edema present at the lower extremities. Peripheral Pulses: 3+ Radial (R). 3+ Radial (L). 3+ Dorsalis pedis (R). 3+ Dorsalis pedis(L) Skin: Rashes on bilateral arms and legs, with pruritus Neurological: Intact cranial nerves with no focal neurologic deficits laboratory and microbiology Laboratory Tests 01/26/25 05:24 Test 01/26/25 05:24 Range/Units Serum Glucose 141 H 74-106 mg/dL Microbiology Date/Time Source Procedure Growth Status 01/23/25 00:30 Voided Urine Urine Culture - Final Complete 01/22/25 10:19 Blood Blood Culture - Preliminary NO GROWTH AFTER 72 HOURS OF INCUBATION. Resulted Labs and/or images reviewed: Labs reviewed by me, Image(s) reviewed by me Problem List/Assessment/Plan Problem List/Assessment/Plan # generalized lymphadenopathy due to possible lymphoma/HIV/viral syndrome # possible tumor lysis syndrome # rule out possible Kaposi sarcoma vs HIV -IR consulted for possible lymph node biopsy -lymph node biopsy done, pending result - nephrology on board, recommended kidney biopsy -CT abdomen showed Multiple prominent bilateral axillary, mediastinal, and retroperitoneal nodes with splenomegaly. Findings are concerning for lymphoma. -ceftriaxone - [place] -multivitamin - public Health was consulted for his history -nephrology consult has suggested calcium acetate, next dialysis on Tuesday and a possible kidney biopsy after dialysis -ID consulted suggested to discontinue ceftriaxone culture, D-dimer, fibrinogen, ferritin, uric acid -D-dimer -22.5, venous Doppler sent which showed no sonographic evidence for DVT in bilateral lower extremities Fibrinogen 158 Ferritin 2528.9 # sepsis due to UTI # Acute complicated UTI # 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 # Anuria # hyperuricemia # hyperphosphatemia #Thrombocytopenia #Hyponatremia #Metabolic acidosis anion gap #Paraproteinemia #Hypocalcemia - KEIRA positive - patient has Kaplan catheter with minimal urine - nephrology consulted for possible dialysis - social service consulted for higher level of care - tunnel catheter placed for dialysis - patient given tamsulosin 0.4 mg p.o. - Patient given Nepro 240ml, b.i.d. # rule out STI # unsafe sexual practices - ordered hepatitis-B, hepatitis-C, syphilis, CMV, EBV - HIV negative - EBV antibody positive - KEIRA positive # polysubstance abuse disorder - patient counseled on risks of using drugs, cigarettes, alcohol for more than 17 minutes PUD PPX: Protonix 40 mg DVT PPX: Not Indicated Goals of care addressed with the patient for more than 27 minutes: Full code status Case discussed with , patient and nurse Plan discussed with: Patient, Other (rn) My Orders My Orders Orders - KAMALA DESIR RESIDENT Procedure Category Date Status Time Bilat Lower Dvt US 01/26/25 Resulted 10:46 Dietary Evaluation Review Comments: Nutrition Recommendation: 1) Continue current POC 2) Monitor PO intake, lab values, weight trend, and I/O Expected Outcomes/Goals: To meet >75% estimated needs Lab values to improve Fu 3-5 days Date of Service: Jan 26, 2025 Billing Provider: FLOR SIMMONS MD Common Visit Codes: [id number] INP/OBS CARE(HIGH) KAMALA DESIR Jan 26, 2025 17:09 FLOR SIMMONS MD Jan 28, 2025 10:11
[2025-01-26 20:00] VITALS: PULSE 83; RESP 17; O2SAT 99
[2025-01-26 21:00] VITALS: BP 107/68; PULSE 83; RESP 17; TEMP 97.7; O2SAT 99
[2025-01-27] VITALS (7 sets, daily range): BP systolic 113–126; BP diastolic 58–75; PULSE 84–95; RESP 16–99; TEMP 97.7–98.9; O2SAT 96–100
[2025-01-27 08:11] LABS: Hematocrit 31.0 % (41.0-53.0); Hemoglobin 10.7 g/dL (13.5-17.5); Mean Corpuscular Hemoglobin 33.2 pg (28.0-32.0); Mean Corpuscular Volume 96.0 fL (80.0-100.0); Nucleated Red Blood Cells % 0.1 %
[2025-01-27 08:25] LABS: Anion Gap 15 (5-15); Carbon Dioxide 21 mmol/L (20-31)
[2025-01-27 08:30] LABS: BUN/Creatinine Ratio 14.7 (10.0-20.0)
[2025-01-27 08:32] LABS: Blood Urea Nitrogen 74 mg/dL (9-23); Calcium 6.3 mg/dL (8.7-10.4); Chloride 96 mmol/L (98-107); Glucose 118 mg/dL (74-106); Potassium 3.4 mmol/L (3.5-5.1); Sodium 132 mmol/L (136-145)
--- NOTE | 2025-01-27 12:46 | DVHPN2 ---
Progress Note Date Seen: Jan 27, 2025 Medical Necessity Reason Pt with a Central, PICC or Fol: No The following are medically ne: Kaplan Catheter Reason for kaplan catheter: Bladder Retention/Obstruc, Strict I&O Subjective Patient reports: No new complaints, Feels better Review of Systems: MSK:Abnormal Objective vital signs Vital Sign Date Time Temp Pulse Resp B/P (MAP) Pulse Ox O2 Delivery O2 Flow Rate FiO2 01/27/25 08:51 98.9 86 20 113/58 (76) 98 98.9 01/27/25 08:00 Room Air* 0 21 Total Intake and Output 01/26/25 01/26/25 01/27/25 15:00 23:00 07:00 Intake Total 100 ml 1350 ml 925 ml Output Total 1100 ml 1250 ml Balance 100 ml 250 ml -325 ml medications Current Medications Medications Dose Ordered Sig/Nghia Route Start Time Stop Time Status Last Admin Dose Admin Multivit/Ca Carb/ B Cmplx/FA/Prenat 1 tab DAILY PO 01/22/25 10:00 01/27/25 08:27 1 TAB Sodium Chloride 10 ml Q8HR IV 01/21/25 22:00 01/27/25 05:28 10 ML Ondansetron HCl 4 mg Q4HP PRN IV 01/21/25 16:15 Docusate Sodium 100 mg BIDPRN PRN PO 01/21/25 16:15 Acetaminophen 650 mg Q6HP PRN PO 01/21/25 16:15 Nitroglycerin 0.4 mg Q5MINP PRN SL 01/21/25 17:30 Morphine Sulfate 2 mg Q30M PRN IV 01/21/25 17:30 01/24/25 05:53 2 MG Methylprednisolone Sodium Succinate 1,000 mg DAILY IV 01/22/25 20:45 01/24/25 10:01 UNV Amlodipine Besylate 10 mg DAILY PO 01/24/25 10:00 01/27/25 08:28 10 MG Losartan Potassium 75 mg DAILY PO 01/24/25 10:00 01/27/25 08:28 75 MG Allopurinol 100 mg HS PO 01/24/25 22:00 01/26/25 21:06 100 MG Acetaminophen/ Hydrocodone Bitart 1 tab Q4HP PRN PO 01/24/25 03:45 01/26/25 21:06 1 TAB Tamsulosin HCl 0.4 mg QPM PO 01/24/25 13:15 01/26/25 17:27 0.4 MG Pantoprazole Sodium 40 mg DAILY@0600 PO 01/25/25 06:00 01/27/25 05:28 40 MG Enteral Nutritional Formula 240 ml BIDWM PO 01/25/25 18:00 01/27/25 08:00 240 ML Calcium Acetate 1,334 mg TIDWMEALS PO 01/26/25 12:00 01/27/25 11:35 1,334 MG Examination: MSK:Abnormal, SKIN:Abnormal laboratory and microbiology Laboratory Tests 01/27/25 06:05 Test 01/27/25 06:05 Range/Units Serum Glucose 118 H 74-106 mg/dL Microbiology Date/Time Source Procedure Growth Status 01/23/25 00:30 Voided Urine Urine Culture - Final Complete 01/22/25 10:19 Blood Blood Culture - Final NO GROWTH AFTER 5 DAYS OF INCUBATION. Complete Problem List/Assessment/Plan Problem List/Assessment/Plan Acute kidney injury---unknown etiology for now likely acute tubular necrosis however rule out glomerular pathology//questionable tumor lysis syndrome in differential---needing dialysis Sepsis-?? Pneumonia Rule out lymphoma Given lymphadenopathy status post lymph node biopsy Hypertension Thrombocytopenia Hyponatremia Metabolic acidosis anion gap Hyperuricemia Paraproteinemia Hypocalcemia Hyperphosphatemia Hyponatremia recs Next dialysis on Tuesday,,LN biopsy done path pending +[place],stereoptician ab neg Anca panel, anti-GBM antibody,low complement level C3, C4,myeloma panel high kappa ,ratio looks ok kidney biopsy pending Antibiotics per primary team s/p pulse dose Steroids IV s/p IR guided tunneled catheter Recommend Heme-Onc consult Recommend rheum /ID consult plan for Higher level of care noted Plan discussed with: Patient Dietary Evaluation Review Comments: Nutrition Recommendation: 1) Continue current POC 2) Monitor PO intake, lab values, weight trend, and I/O Expected Outcomes/Goals: To meet >75% estimated needs Lab values to improve Fu 3-5 days GAIL SANDS MD Jan 27, 2025 12:46
[2025-01-27] MEDS: POTASSIUM EFFERVESENT TAB 25 MEQ PO ONE (13:01)
--- NOTE | 2025-01-27 15:35 | DVHPNRES ---
Progress Note Date Seen: Jan 27, 2025 Resident Creating Document: CONSTANTINO GREENWOOD RESIDENT Has the PT tested + for MRSA If YES, has PT been informed?: No Medical Necessity Reason Pt with a Central, PICC or Fol: Yes The following are medically ne: Kaplan Catheter Reason for kaplan catheter: Bladder Retention/Obstruc, Strict I&O Subjective Review of Systems Patient is a 39-year-old male who denies any past medical history, presented to the ED with chief complaints of inability to urinate, shortness of breath mouth crusting, pain. He reported that he had difficulty urinating and was here 2 days ago with similar symptoms and had a Kaplan catheter placed but left AMA after. Patient was started on IV antibiotic vancomycin. past surgical history; denies Family history: liver cancer in father, breast cancer in grandmother personal history: patient smokes 2 cigarettes per day, drinks socially, uses marijuana, meth in the past, patient has prior STDs 2 years ago, he has unprotected sex with 1 partner 01/22/2025 Patient seen at bedside. Patient appears alert x3, in no distress, he complained of shortness of breath, unable to pee for 5 days bleeding and crusting of his lips with pain, pruritic rash which started in his wrists and progress to his arms , and in his legs. Patient did complain of night sweats, fevers, chills since 1 week. He also complained of white discharge from his penis, Since 1 month. Patient has diffuse lymphadenopathy. STD panel was ordered, radiologist was consulted for possible lymph node biopsy. Nephrology was consulted for possible dialysis. renal ultrasound 0.8 cm nonobstructive left kidney stone. Abdominal CT shows Severe hepatic steatosis., Retroperitoneal, pelvic side wall, inguinal lymphadenopathy. Lymphoma is a consideration., Punctate nonobstructive left kidney stone. Urinalysis shows positive signs of UTI. 01/23/25 patient seen at bedside. Patient appears alert x3, social service consult was placed for transfer to higher level of care for acute leukemia, lymphoma treatment. A tunnel catheter was placed for dialysis today and bled. lymph node biopsy was done. Patient was started on allopurinol 100 mg p.o., rasburicase IV b.i.d. 01/24/25 Patient seen At bedside. Patient is very tired, appeared confused, complains of abdominal pain. Kaplan catheter showed blood in the urine. Patients mouth appears black, is bleeding in the gums and tongue. patient underwent dialysis, patient was started on tamsulosin 0.[address] shows Multiple prominent bilateral axillary, mediastinal, and retroperitoneal nodes with splenomegaly. Findings are concerning for lymphoma. Recommend tissue sampling and PET-CT for further evaluation. social service was consulted for higher level of care, and stated that I [facility] declined to provide Auth for transfer. 01/25/2025 Patient seen at bedside. Patient is very tired, still complains of abdominal pain. Kaplan catheter still shows minimal blood. Patient is still bleeding in his gums and tongue. Patient underwent dialysis malignancy, patient was started on Nepro 240 mL p.o. b.i.d. Infectious Disease was consulted. Contacted [facility] for confirmation of his history but they did not pickup. pathology was contacted for peripheral smear and stated that the result will come on Tuesday. Pending lymph node biopsy results for higher level of care transfer. 01/26/2025 Patient was seen at the bedside. Patient has no active complaints. I spoke to the family, both his mother and mother of his child, regarding an update that patient will be requiring dialysis on Tuesday and a possible kidney biopsy after dialysis according to nephrology. ID consult has suggested ceftriaxone to be discontinued, urine cultures, D-dimer levels which came back 22.5 ( venous Doppler sent and showed no sonographic evidence for DVT in bilateral lower extremities ), fibrinogen levels which came back 158 and ferritin levels which came back high to 2528.9. Uric Acid came back 10.8. I spoke to the piano case and bench assembler today- Ira, who is working on transferring the patient to [facility] as they have agreed to take the patient provided the biopsy reports and peripheral smear come back. She is working to get [facility]'s approval. Biopsy reports are still pending and patient has been counseled along with his family today. 01/27/2025 Patient seen at bedside. Patient has no active complaints, states that he feels bloated and has mild pain in his left upper quadrant and lower back, also Stated feeling itchy and has bumps on his legs, for which Benadryl 25 mg q.6 PRN given. Flow cytometry is negative. Contacted pathology for biopsy the results, did not answer. Contacted social service for possible transfer to higher level of care, stated that [facility] has accepted and waiting for transfer back order to be signed. Objective vital signs Vital Sign Date Time Temp Pulse Resp B/P (MAP) Pulse Ox O2 Delivery O2 Flow Rate FiO2 01/27/25 13:06 97.7 89 20 126/74 (91) 99 97.7 01/27/25 08:00 Room Air* 0 21 Total Intake and Output 01/26/25 01/26/25 01/27/25 15:00 23:00 07:00 Intake Total 100 ml 1350 ml 925 ml Output Total 1100 ml 1250 ml Balance 100 ml 250 ml -325 ml medications Current Medications Medications Dose Ordered Sig/Nghia Route Start Time Stop Time Status Last Admin Dose Admin Multivit/Ca Carb/ B Cmplx/FA/Prenat 1 tab DAILY PO 01/22/25 10:00 01/27/25 08:27 1 TAB Sodium Chloride 10 ml Q8HR IV 01/21/25 22:00 01/27/25 05:28 10 ML Ondansetron HCl 4 mg Q4HP PRN IV 01/21/25 16:15 Docusate Sodium 100 mg BIDPRN PRN PO 01/21/25 16:15 Acetaminophen 650 mg Q6HP PRN PO 01/21/25 16:15 Nitroglycerin 0.4 mg Q5MINP PRN SL 01/21/25 17:30 Morphine Sulfate 2 mg Q30M PRN IV 01/21/25 17:30 01/24/25 05:53 2 MG Methylprednisolone Sodium Succinate 1,000 mg DAILY IV 01/22/25 20:45 01/24/25 10:01 UNV Amlodipine Besylate 10 mg DAILY PO 01/24/25 10:00 01/27/25 08:28 10 MG Losartan Potassium 75 mg DAILY PO 01/24/25 10:00 01/27/25 08:28 75 MG Allopurinol 100 mg HS PO 01/24/25 22:00 01/26/25 21:06 100 MG Acetaminophen/ Hydrocodone Bitart 1 tab Q4HP PRN PO 01/24/25 03:45 01/27/25 13:17 1 TAB Tamsulosin HCl 0.4 mg QPM PO 01/24/25 13:15 01/26/25 17:27 0.4 MG Pantoprazole Sodium 40 mg DAILY@0600 PO 01/25/25 06:00 01/27/25 05:28 40 MG Enteral Nutritional Formula 240 ml BIDWM PO 01/25/25 18:00 01/27/25 08:00 240 ML Calcium Acetate 1,334 mg TIDWMEALS PO 01/26/25 12:00 01/27/25 11:35 1,334 MG Examination General: Patient alert and oriented in person, place and time. Patient following commands. HEENT: Normocephalic, atraumatic, moist mucous membranes, mouth crusted, dark in color , diffuse lymphadenopathy Respiratory/pulmonary: Clear lungs bilaterally, vesicular murmurs present in almost all lung mckinney, no associated crackles or wheezes. Cardiovascular: Normal heart sounds S1 and S2 with no associated murmurs Abdomen: Abdomen nondistended, there is no pain to palpation in any of the abdominal quadrants, no palpable masses. Kaplan catheter in place, draining yellow urine Extremities: There is no peripheral edema present at the lower extremities. Peripheral Pulses: 3+ Radial (R). 3+ Radial (L). 3+ Dorsalis pedis (R). 3+ Dorsalis pedis(L) Skin: Rashes on bilateral arms and legs, with pruritus Neurological: Intact cranial nerves with no focal neurologic deficits laboratory and microbiology Laboratory Tests 01/27/25 06:05 Test 01/27/25 06:05 Range/Units Serum Glucose 118 H 74-106 mg/dL Microbiology Date/Time Source Procedure Growth Status 01/23/25 00:30 Voided Urine Urine Culture - Final Complete 01/22/25 10:19 Blood Blood Culture - Final NO GROWTH AFTER 5 DAYS OF INCUBATION. 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 Findings are concerning for lymphoma. -ceftriaxone - [place] -multivitamin - public Health was consulted for his history -social Service consulted for possible transfer to [facility]. # sepsis due to UTI # Acute complicated UTI # 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 # Anuria # hyperuricemia # hyperphosphatemia #Thrombocytopenia #Hyponatremia #Metabolic acidosis anion gap #Paraproteinemia #Hypocalcemia - KEIRA positive - patient has Kaplan catheter with minimal urine - nephrology consulted for possible dialysis - social service consulted for higher level of care - tunnel catheter placed for dialysis - patient given tamsulosin 0.4 mg p.o. - Patient given Nepro 240ml, b.i.d. # rule out STI # unsafe sexual practices - ordered hepatitis-B, hepatitis-C, syphilis, CMV, EBV - HIV negative - EBV antibody positive - KEIRA positive - # polysubstance abuse disorder - patient counseled on risks of using drugs, cigarettes, alcohol for more than 17 minutes PUD PPX: Protonix 40 mg DVT PPX: Not Indicated Goals of care addressed with the patient for more than 27 minutes: Full code status Case discussed with , patient and nurse Plan discussed with: Patient, Other (RN) Dietary Evaluation Review Comments: Nutrition Recommendation: 1) Continue current POC 2) Monitor PO intake, lab values, weight trend, and I/O Expected Outcomes/Goals: To meet >75% estimated needs Lab values to improve Fu 3-5 days Date of Service: Jan 27, 2025 Billing Provider: FLOR SIMMONS MD Common Visit Codes: [id number] INP/OBS CARE(HIGH) CONSTANTINO GREENWOOD RESIDENT Jan 27, 2025 15:35 FLOR SIMMONS MD Jan 28, 2025 10:12
[2025-01-28] VITALS (8 sets, daily range): BP systolic 110–124; BP diastolic 57–67; PULSE 84–95; RESP 17–18; TEMP 97.9–98.9; O2SAT 95–100
[2025-01-28 07:31] LABS: Hematocrit 29.2 % (41.0-53.0); Hemoglobin 10.1 g/dL (13.5-17.5); Mean Corpuscular Hemoglobin 33.6 pg (28.0-32.0); Mean Corpuscular Volume 97.3 fL (80.0-100.0); Nucleated Red Blood Cells % 0.1 %
[2025-01-28 07:37] LABS: Alkaline Phosphatase 100 U/L (46-116); Anion Gap 11 (5-15); BUN/Creatinine Ratio 15.8 (10.0-20.0); Carbon Dioxide 22 mmol/L (20-31); Chloride 98 mmol/L (98-107); Potassium 3.8 mmol/L (3.5-5.1)
[2025-01-28 07:39] LABS: Alanine Aminotransferase 318 U/L (7-40); Albumin 2.5 g/dL (3.2-4.8); Bilirubin, Total 1.3 mg/dL (0.2-1.0); Blood Urea Nitrogen 60 mg/dL (9-23); Calcium 6.9 mg/dL (8.7-10.4); Glucose 147 mg/dL (74-106); Sodium 131 mmol/L (136-145); Total Protein 9.1 g/dL (5.7-8.2)
[2025-01-28] MEDS: ALBUMIN 25% 100 ML IV STA (09:45)
--- NOTE | 2025-01-28 10:49 | DVHPN2 ---
Progress Note Date Seen: Jan 28, 2025 Has the PT tested + for MRSA If YES, has PT been informed?: No Medical Necessity Reason Pt with a Central, PICC or Fol: Yes The following are medically ne: Kaplan Catheter Reason for kaplan catheter: Bladder Retention/Obstruc, Strict I&O Subjective Patient reports: No new complaints Review of Systems: Deferred Objective vital signs Vital Sign Date Time Temp Pulse Resp B/P (MAP) Pulse Ox O2 Delivery O2 Flow Rate FiO2 01/28/25 09:48 119/62 01/28/25 09:00 97.9 93 18 98 97.9 01/27/25 20:00 Room Air* 0 21 Total Intake and Output 01/27/25 01/27/25 01/28/25 15:00 23:00 07:00 Intake Total 1350 ml 1200 ml Output Total 1000 ml 1700 ml 2000 ml Balance -1000 ml -350 ml -800 ml medications Current Medications Medications Dose Ordered Sig/Nghia Route Start Time Stop Time Status Last Admin Dose Admin Multivit/Ca Carb/ B Cmplx/FA/Prenat 1 tab DAILY PO 01/22/25 10:00 01/27/25 08:27 1 TAB Sodium Chloride 10 ml Q8HR IV 01/21/25 22:00 01/28/25 05:13 10 ML Ondansetron HCl 4 mg Q4HP PRN IV 01/21/25 16:15 Docusate Sodium 100 mg BIDPRN PRN PO 01/21/25 16:15 Acetaminophen 650 mg Q6HP PRN PO 01/21/25 16:15 Nitroglycerin 0.4 mg Q5MINP PRN SL 01/21/25 17:30 Morphine Sulfate 2 mg Q30M PRN IV 01/21/25 17:30 01/24/25 05:53 2 MG Methylprednisolone Sodium Succinate 1,000 mg DAILY IV 01/22/25 20:45 01/24/25 10:01 UNV Amlodipine Besylate 10 mg DAILY PO 01/24/25 10:00 01/27/25 08:28 10 MG Losartan Potassium 75 mg DAILY PO 01/24/25 10:00 01/27/25 08:28 75 MG Allopurinol 100 mg HS PO 01/24/25 22:00 01/27/25 21:01 100 MG Acetaminophen/ Hydrocodone Bitart 1 tab Q4HP PRN PO 01/24/25 03:45 01/27/25 13:17 1 TAB Tamsulosin HCl 0.4 mg QPM PO 01/24/25 13:15 01/27/25 17:35 0.4 MG Pantoprazole Sodium 40 mg DAILY@0600 PO 01/25/25 06:00 01/28/25 05:12 40 MG Enteral Nutritional Formula 240 ml BIDWM PO 01/25/25 18:00 01/28/25 08:00 240 ML Calcium Acetate 1,334 mg TIDWMEALS PO 01/26/25 12:00 01/27/25 17:35 1,334 MG Diphenhydramine HCl 25 mg Q6HP PRN PO 01/27/25 15:45 01/27/25 21:01 25 MG Examination: GENERAL:Normal, CVS:Normal laboratory and microbiology Laboratory Tests 01/28/25 06:31 Test 01/28/25 06:31 Range/Units Serum Glucose 147 H 74-106 mg/dL Microbiology Date/Time Source Procedure Growth Status 01/23/25 00:30 Voided Urine Urine Culture - Final Complete 01/22/25 10:19 Blood Blood Culture - Final NO GROWTH AFTER 5 DAYS OF INCUBATION. Complete Problem List/Assessment/Plan Problem List/Assessment/Plan Acute kidney injury---unknown etiology for now likely acute tubular necrosis however rule out glomerular pathology//questionable tumor lysis syndrome in differential---needing dialysis Sepsis-?? Pneumonia Rule out lymphoma Given lymphadenopathy status post lymph node biopsy Hypertension Thrombocytopenia Hyponatremia Metabolic acidosis anion gap Hyperuricemia Paraproteinemia Hypocalcemia Hyperphosphatemia Hyponatremia dialysis today ,LN biopsy done path pending +[place],trauma counsellor ab neg Anca panel, anti-GBM antibody,low complement level C3, C4,myeloma panel high kappa ,ratio looks ok kidney biopsy pending Antibiotics per primary team s/p pulse dose Steroids IV s/p IR guided tunneled catheter Recommend Heme-Onc consult Recommend rheum /ID consult plan for Higher level of care noted [facility] Plan discussed with: Patient Dietary Evaluation Review Comments: Nutrition Recommendation: 1) Continue current POC 2) Monitor PO intake, lab values, weight trend, and I/O Expected Outcomes/Goals: To meet >75% estimated needs Lab values to improve Fu 3-5 days FLAVIO JACKSON MD Jan 28, 2025 10:49
--- NOTE | 2025-01-28 11:26 | DVHPN2 ---
Consult Progress Note Objective vital signs Vital Sign Date Time Temp Pulse Resp B/P (MAP) Pulse Ox O2 Delivery O2 Flow Rate FiO2 01/28/25 09:48 119/62 01/28/25 09:00 97.9 93 18 98 97.9 01/27/25 20:00 Room Air* 0 21 Total Intake and Output 01/27/25 01/27/25 01/28/25 14:59 22:59 06:59 Intake Total 1350 ml 1200 ml Output Total 1000 ml 1700 ml 2000 ml Balance -1000 ml -350 ml -800 ml medications Current Medications Medications Dose Ordered Sig/Nghia Route Start Time Stop Time Status Last Admin Dose Admin Multivit/Ca Carb/ B Cmplx/FA/Prenat 1 tab DAILY PO 01/22/25 10:00 01/27/25 08:27 1 TAB Sodium Chloride 10 ml Q8HR IV 01/21/25 22:00 01/28/25 05:13 10 ML Ondansetron HCl 4 mg Q4HP PRN IV 01/21/25 16:15 Docusate Sodium 100 mg BIDPRN PRN PO 01/21/25 16:15 Acetaminophen 650 mg Q6HP PRN PO 01/21/25 16:15 Nitroglycerin 0.4 mg Q5MINP PRN SL 01/21/25 17:30 Morphine Sulfate 2 mg Q30M PRN IV 01/21/25 17:30 01/24/25 05:53 2 MG Methylprednisolone Sodium Succinate 1,000 mg DAILY IV 01/22/25 20:45 01/24/25 10:01 UNV Amlodipine Besylate 10 mg DAILY PO 01/24/25 10:00 01/27/25 08:28 10 MG Losartan Potassium 75 mg DAILY PO 01/24/25 10:00 01/27/25 08:28 75 MG Allopurinol 100 mg HS PO 01/24/25 22:00 01/27/25 21:01 100 MG Acetaminophen/ Hydrocodone Bitart 1 tab Q4HP PRN PO 01/24/25 03:45 01/27/25 13:17 1 TAB Tamsulosin HCl 0.4 mg QPM PO 01/24/25 13:15 01/27/25 17:35 0.4 MG Pantoprazole Sodium 40 mg DAILY@0600 PO 01/25/25 06:00 01/28/25 05:12 40 MG Enteral Nutritional Formula 240 ml BIDWM PO 01/25/25 18:00 01/28/25 08:00 240 ML Calcium Acetate 1,334 mg TIDWMEALS PO 01/26/25 12:00 01/27/25 17:35 1,334 MG Diphenhydramine HCl 25 mg Q6HP PRN PO 01/27/25 15:45 01/27/25 21:01 25 MG laboratory and microbiology Laboratory Tests 01/28/25 06:31 Test 01/28/25 06:31 Range/Units Serum Glucose 147 H 74-106 mg/dL Dietary Evaluation Review Comments: Nutrition Recommendation: 1) Continue current POC 2) Monitor PO intake, lab values, weight trend, and I/O Expected Outcomes/Goals: To meet >75% estimated needs Lab values to improve Fu 3-5 days BOYD JAUREGUI MD Jan 28, 2025 11:26
--- NOTE | 2025-01-28 11:37 | DVHPN2 ---
Consult Progress Note Objective vital signs Vital Sign Date Time Temp Pulse Resp B/P (MAP) Pulse Ox O2 Delivery O2 Flow Rate FiO2 01/28/25 09:48 119/62 01/28/25 09:00 97.9 93 18 98 97.9 01/27/25 20:00 Room Air* 0 21 Total Intake and Output 01/27/25 01/27/25 01/28/25 14:59 22:59 06:59 Intake Total 1350 ml 1200 ml Output Total 1000 ml 1700 ml 2000 ml Balance -1000 ml -350 ml -800 ml medications Current Medications Medications Dose Ordered Sig/Nghia Route Start Time Stop Time Status Last Admin Dose Admin Multivit/Ca Carb/ B Cmplx/FA/Prenat 1 tab DAILY PO 01/22/25 10:00 01/27/25 08:27 1 TAB Sodium Chloride 10 ml Q8HR IV 01/21/25 22:00 01/28/25 05:13 10 ML Ondansetron HCl 4 mg Q4HP PRN IV 01/21/25 16:15 Docusate Sodium 100 mg BIDPRN PRN PO 01/21/25 16:15 Acetaminophen 650 mg Q6HP PRN PO 01/21/25 16:15 Nitroglycerin 0.4 mg Q5MINP PRN SL 01/21/25 17:30 Morphine Sulfate 2 mg Q30M PRN IV 01/21/25 17:30 01/24/25 05:53 2 MG Methylprednisolone Sodium Succinate 1,000 mg DAILY IV 01/22/25 20:45 01/24/25 10:01 UNV Amlodipine Besylate 10 mg DAILY PO 01/24/25 10:00 01/27/25 08:28 10 MG Losartan Potassium 75 mg DAILY PO 01/24/25 10:00 01/27/25 08:28 75 MG Allopurinol 100 mg HS PO 01/24/25 22:00 01/27/25 21:01 100 MG Acetaminophen/ Hydrocodone Bitart 1 tab Q4HP PRN PO 01/24/25 03:45 01/27/25 13:17 1 TAB Tamsulosin HCl 0.4 mg QPM PO 01/24/25 13:15 01/27/25 17:35 0.4 MG Pantoprazole Sodium 40 mg DAILY@0600 PO 01/25/25 06:00 01/28/25 05:12 40 MG Enteral Nutritional Formula 240 ml BIDWM PO 01/25/25 18:00 01/28/25 08:00 240 ML Calcium Acetate 1,334 mg TIDWMEALS PO 01/26/25 12:00 01/27/25 17:35 1,334 MG Diphenhydramine HCl 25 mg Q6HP PRN PO 01/27/25 15:45 01/27/25 21:01 25 MG laboratory and microbiology Laboratory Tests 01/28/25 06:31 Test 01/28/25 06:31 Range/Units Serum Glucose 147 H 74-106 mg/dL Problem List/Assessment/Plan Problems(with codes): (1) Lymphadenopathy (2) Leukocytosis Problem List/Assessment/Plan patient seen at bedside full note to follow, denies pain, mild generalized rash no fever or chills cytology without malignancy diagnosis, normal results recommend hematology oncology evaluation, bone marrow biopsy worsening leukocytosis, monitor off antibiotics for now Plan discussed with: Patient Dietary Evaluation Review Comments: Nutrition Recommendation: 1) Continue current POC 2) Monitor PO intake, lab values, weight trend, and I/O Expected Outcomes/Goals: To meet >75% estimated needs Lab values to improve Fu 3-5 days BOYD JAUREGUI MD Jan 28, 2025 11:37
--- NOTE | 2025-01-28 17:50 | DVHPNRES ---
Progress Note Date Seen: Jan 28, 2025 Resident Creating Document: CONSTANTINO GREENWOOD RESIDENT Has the PT tested + for MRSA If YES, has PT been informed?: No Medical Necessity Reason Pt with a Central, PICC or Fol: Yes The following are medically ne: Kaplan Catheter Reason for kaplan catheter: Bladder Retention/Obstruc, Strict I&O Subjective Review of Systems Patient is a 39-year-old male who denies any past medical history, presented to the ED with chief complaints of inability to urinate, shortness of breath mouth crusting, pain. He reported that he had difficulty urinating and was here 2 days ago with similar symptoms and had a Kaplan catheter placed but left AMA after. Patient was started on IV antibiotic vancomycin. past surgical history; denies Family history: liver cancer in father, breast cancer in grandmother personal history: patient smokes 2 cigarettes per day, drinks socially, uses marijuana, meth in the past, patient has prior STDs 2 years ago, he has unprotected sex with 1 partner 01/22/2025 Patient seen at bedside. Patient appears alert x3, in no distress, he complained of shortness of breath, unable to pee for 5 days bleeding and crusting of his lips with pain, pruritic rash which started in his wrists and progress to his arms , and in his legs. Patient did complain of night sweats, fevers, chills since 1 week. He also complained of white discharge from his penis, Since 1 month. Patient has diffuse lymphadenopathy. STD panel was ordered, radiologist was consulted for possible lymph node biopsy. Nephrology was consulted for possible dialysis. renal ultrasound 0.8 cm nonobstructive left kidney stone. Abdominal CT shows Severe hepatic steatosis., Retroperitoneal, pelvic side wall, inguinal lymphadenopathy. Lymphoma is a consideration., Punctate nonobstructive left kidney stone. Urinalysis shows positive signs of UTI. 01/23/25 patient seen at bedside. Patient appears alert x3, social service consult was placed for transfer to higher level of care for acute leukemia, lymphoma treatment. A tunnel catheter was placed for dialysis today and bled. lymph node biopsy was done. Patient was started on allopurinol 100 mg p.o., rasburicase IV b.i.d. 01/24/25 Patient seen At bedside. Patient is very tired, appeared confused, complains of abdominal pain. Kaplan catheter showed blood in the urine. Patients mouth appears black, is bleeding in the gums and tongue. patient underwent dialysis, patient was started on tamsulosin 0.[address] shows Multiple prominent bilateral axillary, mediastinal, and retroperitoneal nodes with splenomegaly. Findings are concerning for lymphoma. Recommend tissue sampling and PET-CT for further evaluation. social service was consulted for higher level of care, and stated that I [facility] declined to provide Auth for transfer. 01/25/2025 Patient seen at bedside. Patient is very tired, still complains of abdominal pain. Kaplan catheter still shows minimal blood. Patient is still bleeding in his gums and tongue. Patient underwent dialysis malignancy, patient was started on Nepro 240 mL p.o. b.i.d. Infectious Disease was consulted. Contacted [facility] for confirmation of his history but they did not pickup. pathology was contacted for peripheral smear and stated that the result will come on Tuesday. Pending lymph node biopsy results for higher level of care transfer. 01/26/2025 Patient was seen at the bedside. Patient has no active complaints. I spoke to the family, both his mother and mother of his child, regarding an update that patient will be requiring dialysis on Tuesday and a possible kidney biopsy after dialysis according to nephrology. ID consult has suggested ceftriaxone to be discontinued, urine cultures, D-dimer levels which came back 22.5 ( venous Doppler sent and showed no sonographic evidence for DVT in bilateral lower extremities ), fibrinogen levels which came back 158 and ferritin levels which came back high to 2528.9. Uric Acid came back 10.8. I spoke to the adult protective caseworker today- Ira, who is working on transferring the patient to [place] as they have agreed to take the patient provided the biopsy reports and peripheral smear come back. She is working to get [facility]'s approval. Biopsy reports are still pending and patient has been counseled along with his family today. 01/27/2025 Patient seen at bedside. Patient has no active complaints, states that he feels bloated and has mild pain in his left upper quadrant and lower back, also Stated feeling itchy and has bumps on his legs, for which Benadryl 25 mg q.6 PRN given. Flow cytometry is negative. Contacted pathology for biopsy the results, did not answer. Contacted social service for possible transfer to higher level of care, stated that [facility] has accepted and waiting for transfer back order to be signed. 01/28/2025 Patient seen at bedside. patient has no acute complaints. States that his abdominal pain has decreased and still is having itching. Explained to Mother on plan of care. Transfer back papers were signed by attending and given to the nurse, contacted social service assistant about signed papers.ID recomended hematology oncology evaluation, and bone marrow biopsy and to monitor off antibiotics for now. Objective vital signs Vital Sign Date Time Temp Pulse Resp B/P (MAP) Pulse Ox O2 Delivery O2 Flow Rate FiO2 01/28/25 17:00 98.9 95 18 114/57 (76) 95 98.9 01/28/25 08:00 Room Air* 0 21 Total Intake and Output 01/27/25 01/27/25 01/28/25 15:00 23:00 07:00 Intake Total 1350 ml 1200 ml Output Total 1000 ml 1700 ml 2000 ml Balance -1000 ml -350 ml -800 ml medications Current Medications Medications Dose Ordered Sig/Nghai Route Start Time Stop Time Status Last Admin Dose Admin Multivit/Ca Carb/ B Cmplx/FA/Prenat 1 tab DAILY PO 01/22/25 10:00 01/27/25 08:27 1 TAB Sodium Chloride 10 ml Q8HR IV 01/21/25 22:00 01/28/25 13:34 10 ML Ondansetron HCl 4 mg Q4HP PRN IV 01/21/25 16:15 Docusate Sodium 100 mg BIDPRN PRN PO 01/21/25 16:15 Acetaminophen 650 mg Q6HP PRN PO 01/21/25 16:15 Nitroglycerin 0.4 mg Q5MINP PRN SL 01/21/25 17:30 Morphine Sulfate 2 mg Q30M PRN IV 01/21/25 17:30 01/24/25 05:53 2 MG Methylprednisolone Sodium Succinate 1,000 mg DAILY IV 01/22/25 20:45 01/24/25 10:01 UNV Amlodipine Besylate 10 mg DAILY PO 01/24/25 10:00 01/27/25 08:28 10 MG Losartan Potassium 75 mg DAILY PO 01/24/25 10:00 01/27/25 08:28 75 MG Allopurinol 100 mg HS PO 01/24/25 22:00 01/27/25 21:01 100 MG Acetaminophen/ Hydrocodone Bitart 1 tab Q4HP PRN PO 01/24/25 03:45 01/27/25 13:17 1 TAB Tamsulosin HCl 0.4 mg QPM PO 01/24/25 13:15 01/27/25 17:35 0.4 MG Pantoprazole Sodium 40 mg DAILY@0600 PO 01/25/25 06:00 01/28/25 05:12 40 MG Enteral Nutritional Formula 240 ml BIDWM PO 01/25/25 18:00 01/28/25 08:00 240 ML Calcium Acetate 1,334 mg TIDWMEALS PO 01/26/25 12:00 01/28/25 13:34 1,334 MG Diphenhydramine HCl 25 mg Q6HP PRN PO 01/27/25 15:45 01/28/25 13:34 25 MG Examination General: Patient alert and oriented in person, place and time. Patient following commands. HEENT: Normocephalic, atraumatic, moist mucous membranes, diffuse lymphadenopathy Respiratory/pulmonary: Clear lungs bilaterally, vesicular murmurs present in almost all lung mckinney, no associated crackles or wheezes. Cardiovascular: Normal heart sounds S1 and S2 with no associated murmurs Abdomen: Abdomen nondistended, there is no pain to palpation in any of the abdominal quadrants, no palpable masses. Kaplan catheter in place, draining yellow urine Extremities: There is no peripheral edema present at the lower extremities. Peripheral Pulses: 3+ Radial (R). 3+ Radial (L). 3+ Dorsalis pedis (R). 3+ Dorsalis pedis(L) Skin: Rashes on bilateral arms and legs, with pruritus Neurological: Intact cranial nerves with no focal neurologic deficits laboratory and microbiology Laboratory Tests 01/28/25 06:31 Test 01/28/25 06:31 Range/Units Serum Glucose 147 H 74-106 mg/dL Microbiology Date/Time Source Procedure Growth Status 01/23/25 00:30 Voided Urine Urine Culture - Final Complete 01/22/25 10:19 Blood Blood Culture - Final NO GROWTH AFTER 5 DAYS OF INCUBATION. 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 Findings are concerning for lymphoma. -ceftriaxone - [place]ang -multivitamin - public Health was consulted for his history -social Service consulted for possible transfer to [place]. - Papers Signed and given to the nurse # sepsis due to UTI # Acute complicated UTI # 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 # Anuria # hyperuricemia # hyperphosphatemia #Thrombocytopenia #Hyponatremia #Metabolic acidosis anion gap #Paraproteinemia #Hypocalcemia - KEIRA positive - patient has Kaplan catheter with minimal urine - nephrology consulted for possible dialysis - social service consulted for higher level of care - tunnel catheter placed for dialysis - patient given tamsulosin 0.4 mg p.o. - Patient given Nepro 240ml, b.i.d. # rule out STI # unsafe sexual practices - ordered hepatitis-B, hepatitis-C, syphilis, CMV, EBV - HIV negative - EBV antibody positive - KEIRA positive - # polysubstance abuse disorder - patient counseled on risks of using drugs, cigarettes, alcohol for more than 17 minutes PUD PPX: Protonix 40 mg DVT PPX: Not Indicated Goals of care addressed with the patient for more than 27 minutes: Full code status Case discussed with , patient and nurse Plan discussed with: Patient, Other (RN) Dietary Evaluation Review Comments: Nutrition Recommendation: 1) Continue current POC 2) Monitor PO intake, lab values, weight trend, and I/O Expected Outcomes/Goals: To meet >75% estimated needs Lab values to improve Fu 3-5 days Date of Service: Jan 28, 2025 Billing Provider: LUISITO VIRAMONTES MD Common Visit Codes: 42540-PRQSOHSXFL INP/OBS CARE(HIGH) CONSTANTINO GREENWOOD RESIDENT Jan 28, 2025 17:50 LUISITO VIRAMONTES MD Jan 30, 2025 00:30
[2025-01-29] VITALS (8 sets, daily range): BP systolic 108–139; BP diastolic 68–88; PULSE 76–95; RESP 17–18; TEMP 97.1–99.1; O2SAT 99–100
[2025-01-29 07:36] LABS: Chloride 100 mmol/L (98-107); Potassium 4.3 mmol/L (3.5-5.1)
[2025-01-29 07:37] LABS: Anion Gap 8 (5-15); Carbon Dioxide 23 mmol/L (20-31)
[2025-01-29 07:42] LABS: BUN/Creatinine Ratio 9.9 (10.0-20.0); Glucose 88 mg/dL (74-106)
[2025-01-29 07:43] LABS: Blood Urea Nitrogen 26 mg/dL (9-23); Calcium 7.6 mg/dL (8.7-10.4); Sodium 131 mmol/L (136-145)
[2025-01-29 08:07] LABS: Alkaline Phosphatase 98.0 U/L (46-116)
[2025-01-29 08:10] LABS: Alanine Aminotransferase 243.0 U/L (7-40); Albumin 2.8 g/dL (3.2-4.8); Bilirubin, Direct 1.0 mg/dL (<0.3); Bilirubin, Total 1.7 mg/dL (0.2-1.0); Total Protein 10.3 g/dL (5.7-8.2)
[2025-01-29 08:41] LABS: Uric Acid 7.3 mg/dL (3.7-9.2)
--- NOTE | 2025-01-29 10:34 | DVHPN2 ---
Progress Note Date Seen: Jan 29, 2025 Has the PT tested + for MRSA If YES, has PT been informed?: No Medical Necessity Reason Pt with a Central, PICC or Fol: Yes The following are medically ne: Kaplan Catheter Reason for kaplan catheter: Bladder Retention/Obstruc, Strict I&O Objective vital signs Vital Sign Date Time Temp Pulse Resp B/P (MAP) Pulse Ox O2 Delivery O2 Flow Rate FiO2 01/29/25 09:28 108/74 01/29/25 05:00 98.2 84 18 100 98.2 01/28/25 20:00 Room Air* 0 21 Total Intake and Output 01/28/25 01/28/25 01/29/25 15:00 23:00 07:00 Intake Total 720 ml 350 ml Balance 720 ml 350 ml medications Current Medications Medications Dose Ordered Sig/Nghia Route Start Time Stop Time Status Last Admin Dose Admin Multivit/Ca Carb/ B Cmplx/FA/Prenat 1 tab DAILY PO 01/22/25 10:00 01/29/25 09:28 1 TAB Sodium Chloride 10 ml Q8HR IV 01/21/25 22:00 01/29/25 05:39 10 ML Ondansetron HCl 4 mg Q4HP PRN IV 01/21/25 16:15 Docusate Sodium 100 mg BIDPRN PRN PO 01/21/25 16:15 Acetaminophen 650 mg Q6HP PRN PO 01/21/25 16:15 Nitroglycerin 0.4 mg Q5MINP PRN SL 01/21/25 17:30 Morphine Sulfate 2 mg Q30M PRN IV 01/21/25 17:30 01/24/25 05:53 2 MG Methylprednisolone Sodium Succinate 1,000 mg DAILY IV 01/22/25 20:45 01/24/25 10:01 UNV Amlodipine Besylate 10 mg DAILY PO 01/24/25 10:00 01/29/25 09:27 10 MG Losartan Potassium 75 mg DAILY PO 01/24/25 10:00 01/29/25 09:28 75 MG Allopurinol 100 mg HS PO 01/24/25 22:00 01/28/25 21:41 100 MG Acetaminophen/ Hydrocodone Bitart 1 tab Q4HP PRN PO 01/24/25 03:45 01/27/25 13:17 1 TAB Tamsulosin HCl 0.4 mg QPM PO 01/24/25 13:15 01/28/25 18:29 0.4 MG Pantoprazole Sodium 40 mg DAILY@0600 PO 01/25/25 06:00 01/29/25 05:39 40 MG Enteral Nutritional Formula 240 ml BIDWM PO 01/25/25 18:00 01/29/25 08:00 240 ML Calcium Acetate 1,334 mg TIDWMEALS PO 01/26/25 12:00 01/29/25 09:28 1,334 MG Diphenhydramine HCl 25 mg Q6HP PRN PO 01/27/25 15:45 01/29/25 09:26 25 MG Examination: GENERAL:Normal, NECK:Normal, LUNGS:Normal, CVS:Normal, ABDOMEN:Normal, SKIN:Abnormal laboratory and microbiology Laboratory Tests 01/29/25 05:47 01/28/25 06:31 Test 01/29/25 05:47 Range/Units Serum Glucose 88 74-106 mg/dL Microbiology Date/Time Source Procedure Growth Status 01/23/25 00:30 Voided Urine Urine Culture - Final Complete 01/22/25 10:19 Blood Blood Culture - Final NO GROWTH AFTER 5 DAYS OF INCUBATION. Complete Problem List/Assessment/Plan Problem List/Assessment/Plan Acute kidney injury-- acute tubular necrosis however rule out glomerular pathology//questionable tumor lysis syndrome in differential---needing dialysis Sepsis-?? Pneumonia Rule out lymphoma Given lymphadenopathy status post lymph node biopsy Hypertension Thrombocytopenia Metabolic acidosis anion gap Hyperuricemia Paraproteinemia/ Hypocalcemia/ Hyperphosphatemia Hyponatremia dialysis tomorrow ,LN biopsy done path pending Schedule kidney biopsy trial of void tomorrow, UOP 4.7L yesterday +[place],drapery head former ab neg Anca panel, anti-GBM antibody,low complement level C3, C4,myeloma panel high kappa ,ratio looks ok Antibiotics per primary team s/p pulse dose Steroids IV s/p IR guided tunneled catheter Recommend Heme-Onc consult Recommend rheum /ID consult plan for Higher level of care noted [facility] HD chairtime and continued dialysis until possible renal recovery Plan discussed with: Patient My Orders My Orders Orders - FLAVIO JACKSON MD Procedure Category Date Status Time Prothrombin Time W/ LAB 01/29/25 Logged INR 09:58 Dietary Evaluation Review Comments: Nutrition Recommendation: 1) Continue current POC 2) Monitor PO intake, lab values, weight trend, and I/O Expected Outcomes/Goals: To meet >75% estimated needs Lab values to improve Fu 3-5 days Total Time (mins): 47 FLAVIO JACKSON MD Jan 29, 2025 10:34
[2025-01-29 12:57] LABS: INR 1.62 (0.9-1.15); Prothrombin Time 16.4 sec (9.3-11.8)
--- NOTE | 2025-01-29 18:33 | DVHPNRES ---
Progress Note Date Seen: Jan 29, 2025 Resident Creating Document: CONSTANTINO GREENWOOD RESIDENT Has the PT tested + for MRSA If YES, has PT been informed?: No Medical Necessity Reason Pt with a Central, PICC or Fol: Yes The following are medically ne: Kaplan Catheter Reason for kaplan catheter: Bladder Retention/Obstruc, Strict I&O Subjective Review of Systems Patient is a 39-year-old male who denies any past medical history, presented to the ED with chief complaints of inability to urinate, shortness of breath mouth crusting, pain. He reported that he had difficulty urinating and was here 2 days ago with similar symptoms and had a Kaplan catheter placed but left AMA after. Patient was started on IV antibiotic vancomycin. past surgical history; denies Family history: liver cancer in father, breast cancer in grandmother personal history: patient smokes 2 cigarettes per day, drinks socially, uses marijuana, meth in the past, patient has prior STDs 2 years ago, he has unprotected sex with 1 partner 01/22/2025 Patient seen at bedside. Patient appears alert x3, in no distress, he complained of shortness of breath, unable to pee for 5 days bleeding and crusting of his lips with pain, pruritic rash which started in his wrists and progress to his arms , and in his legs. Patient did complain of night sweats, fevers, chills since 1 week. He also complained of white discharge from his penis, Since 1 month. Patient has diffuse lymphadenopathy. STD panel was ordered, radiologist was consulted for possible lymph node biopsy. Nephrology was consulted for possible dialysis. renal ultrasound 0.8 cm nonobstructive left kidney stone. Abdominal CT shows Severe hepatic steatosis., Retroperitoneal, pelvic side wall, inguinal lymphadenopathy. Lymphoma is a consideration., Punctate nonobstructive left kidney stone. Urinalysis shows positive signs of UTI. 01/23/25 patient seen at bedside. Patient appears alert x3, social service consult was placed for transfer to higher level of care for acute leukemia, lymphoma treatment. A tunnel catheter was placed for dialysis today and bled. lymph node biopsy was done. Patient was started on allopurinol 100 mg p.o., rasburicase IV b.i.d. 01/24/25 Patient seen At bedside. Patient is very tired, appeared confused, complains of abdominal pain. Kaplan catheter showed blood in the urine. Patients mouth appears black, is bleeding in the gums and tongue. patient underwent dialysis, patient was started on tamsulosin 0.[address] shows Multiple prominent bilateral axillary, mediastinal, and retroperitoneal nodes with splenomegaly. Findings are concerning for lymphoma. Recommend tissue sampling and PET-CT for further evaluation. social service was consulted for higher level of care, and stated that I [facility] declined to provide Auth for transfer. 01/25/2025 Patient seen at bedside. Patient is very tired, still complains of abdominal pain. Kaplan catheter still shows minimal blood. Patient is still bleeding in his gums and tongue. Patient underwent dialysis malignancy, patient was started on Nepro 240 mL p.o. b.i.d. Infectious Disease was consulted. [facility] but they did not pickup. pathology was contacted for peripheral smear and stated that the result will come on Tuesday. Pending lymph node biopsy results for higher level of care transfer. 01/26/2025 Patient was seen at the bedside. Patient has no active complaints. I spoke to the family, both his mother and mother of his child, regarding an update that patient will be requiring dialysis on Tuesday and a possible kidney biopsy after dialysis according to nephrology. ID consult has suggested ceftriaxone to be discontinued, urine cultures, D-dimer levels which came back 22.5 ( venous Doppler sent and showed no sonographic evidence for DVT in bilateral lower extremities ), fibrinogen levels which came back 158 and ferritin levels which came back high to 2528.9. Uric Acid came back 10.8. I spoke to the mental health case manager today- Ira, who is working on transferring the patient to [facility] as they have agreed to take the patient provided the biopsy reports and peripheral smear come back. She is working to get [facility]'s approval. Biopsy reports are still pending and patient has been counseled along with his family today. 01/27/2025 Patient seen at bedside. Patient has no active complaints, states that he feels bloated and has mild pain in his left upper quadrant and lower back, also Stated feeling itchy and has bumps on his legs, for which Benadryl 25 mg q.6 PRN given. Flow cytometry is negative. Contacted pathology for biopsy the results, did not answer. Contacted social service for possible transfer to higher level of care, stated that [facility] has accepted and waiting for transfer back order to be signed. 01/28/2025 Patient seen at bedside. patient has no acute complaints. States that his abdominal pain has decreased and still is having itching. Explained to Mother on plan of care. Transfer back papers were signed by attending and given to the nurse, contacted addiction social worker about signed papers.ID recomended hematology oncology evaluation, and bone marrow biopsy and to monitor off antibiotics for now. 01/29/2025 Patient seen at bedside. Patient has no acute complaints. Please let he is still itchy sometimes. Awaiting bed in [facility]. Awaiting biopsy results. Objective vital signs Vital Sign Date Time Temp Pulse Resp B/P (MAP) Pulse Ox O2 Delivery O2 Flow Rate FiO2 01/29/25 17:00 99.1 83 18 117/80 (92) 100 99.1 01/29/25 08:00 Room Air* 0 21 Total Intake and Output 01/28/25 01/28/25 01/29/25 15:00 23:00 07:00 Intake Total 720 ml 350 ml Balance 720 ml 350 ml medications Current Medications Medications Dose Ordered Sig/Nghia Route Start Time Stop Time Status Last Admin Dose Admin Multivit/Ca Carb/ B Cmplx/FA/Prenat 1 tab DAILY PO 01/22/25 10:00 01/29/25 09:28 1 TAB Sodium Chloride 10 ml Q8HR IV 01/21/25 22:00 01/29/25 14:00 10 ML Ondansetron HCl 4 mg Q4HP PRN IV 01/21/25 16:15 Docusate Sodium 100 mg BIDPRN PRN PO 01/21/25 16:15 Acetaminophen 650 mg Q6HP PRN PO 01/21/25 16:15 Nitroglycerin 0.4 mg Q5MINP PRN SL 01/21/25 17:30 Morphine Sulfate 2 mg Q30M PRN IV 01/21/25 17:30 01/24/25 05:53 2 MG Methylprednisolone Sodium Succinate 1,000 mg DAILY IV 01/22/25 20:45 01/24/25 10:01 UNV Amlodipine Besylate 10 mg DAILY PO 01/24/25 10:00 01/29/25 09:27 10 MG Losartan Potassium 75 mg DAILY PO 01/24/25 10:00 01/29/25 09:28 75 MG Allopurinol 100 mg HS PO 01/24/25 22:00 01/28/25 21:41 100 MG Acetaminophen/ Hydrocodone Bitart 1 tab Q4HP PRN PO 01/24/25 03:45 01/27/25 13:17 1 TAB Tamsulosin HCl 0.4 mg QPM PO 01/24/25 13:15 01/29/25 18:03 0.4 MG Pantoprazole Sodium 40 mg DAILY@0600 PO 01/25/25 06:00 01/29/25 05:39 40 MG Enteral Nutritional Formula 240 ml BIDWM PO 01/25/25 18:00 01/29/25 18:03 240 ML Calcium Acetate 1,334 mg TIDWMEALS PO 01/26/25 12:00 01/29/25 18:03 1,334 MG Diphenhydramine HCl 25 mg Q6HP PRN PO 01/27/25 15:45 01/29/25 09:26 25 MG Examination General: Patient alert and oriented in person, place and time. Patient following commands. HEENT: Normocephalic, atraumatic, moist mucous membranes, tunnel cath for dialysis. diffuse lymphadenopathy Respiratory/pulmonary: Clear lungs bilaterally, vesicular murmurs present in almost all lung mckinney, no associated crackles or wheezes. Cardiovascular: Normal heart sounds S1 and S2 with no associated murmurs Abdomen: Abdomen nondistended, there is no pain to palpation in any of the abdominal quadrants, no palpable masses. Kaplan catheter in place, draining yellow urine Extremities: There is no peripheral edema present at the lower extremities. Peripheral Pulses: 3+ Radial (R). 3+ Radial (L). 3+ Dorsalis pedis (R). 3+ Dorsalis pedis(L) Skin: Rashes on bilateral arms and legs, with pruritus Neurological: Intact cranial nerves with no focal neurologic deficits laboratory and microbiology Laboratory Tests 01/29/25 05:47 01/28/25 06:31 Test 01/29/25 05:47 Range/Units Serum Glucose 88 74-106 mg/dL Microbiology Date/Time Source Procedure Growth Status 01/23/25 00:30 Voided Urine Urine Culture - Final Complete 01/22/25 10:19 Blood Blood Culture - Final NO GROWTH AFTER 5 DAYS OF INCUBATION. 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 Findings are concerning for lymphoma. -ceftriaxone - [place] -multivitamin - public Health was consulted for his history -social Service consulted for possible transfer to [facility]. - Papers Signed and given to the nurse # sepsis due to UTI # Acute complicated UTI # 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 # Anuria # hyperuricemia # hyperphosphatemia #Thrombocytopenia #Hyponatremia #Metabolic acidosis anion gap #Paraproteinemia #Hypocalcemia - KEIRA positive - patient has Kaplan catheter with minimal urine - nephrology consulted for possible dialysis - social service consulted for higher level of care - tunnel catheter placed for dialysis - patient given tamsulosin 0.4 mg p.o. - Patient given Nepro 240ml, b.i.d. # rule out STI # unsafe sexual practices - ordered hepatitis-B, hepatitis-C, syphilis, CMV, EBV - HIV negative - EBV antibody positive - KEIRA positive - # polysubstance abuse disorder - patient counseled on risks of using drugs, cigarettes, alcohol for more than 17 minutes PUD PPX: Protonix 40 mg DVT PPX: Not Indicated Goals of care addressed with the patient for more than 27 minutes: Full code status Case discussed with , patient and nurse Plan discussed with: Patient, Other (RN) Dietary Evaluation Review Comments: Nutrition Recommendation: 1) Continue current POC 2) Monitor PO intake, lab values, weight trend, and I/O Expected Outcomes/Goals: To meet >75% estimated needs Lab values to improve Fu 3-5 days Date of Service: Jan 29, 2025 Billing Provider: LUISITO VIRAMONTES MD Common Visit Codes: 59209-TOEGXOUTYK INP/OBS CARE(HIGH) CONSTANTINO GREENWOOD RESIDENT Jan 29, 2025 18:33 LUISITO VIRAMONTES MD Jan 30, 2025 01:31
[2025-01-30] VITALS (9 sets, daily range): BP systolic 103–150; BP diastolic 55–90; PULSE 68–103; RESP 16–18; TEMP 37; O2SAT 98–100
[2025-01-30 07:33] LABS: Hematocrit 28.8 % (41.0-53.0); Hemoglobin 9.8 g/dL (13.5-17.5); Mean Corpuscular Hemoglobin 33.4 pg (28.0-32.0); Mean Corpuscular Volume 98.0 fL (80.0-100.0); Nucleated Red Blood Cells % 0.2 %
[2025-01-30 07:50] LABS: Alkaline Phosphatase 107 U/L (46-116); Anion Gap 8 (5-15); BUN/Creatinine Ratio 10.7 (10.0-20.0); Blood Urea Nitrogen 23 mg/dL (9-23); Chloride 102 mmol/L (98-107); Glucose 84 mg/dL (74-106); Potassium 4.9 mmol/L (3.5-5.1)
[2025-01-30 07:58] LABS: Alanine Aminotransferase 189 U/L (7-40); Albumin 2.7 g/dL (3.2-4.8); Bilirubin, Total 1.6 mg/dL (0.2-1.0); Calcium 7.7 mg/dL (8.7-10.4); Carbon Dioxide 19 mmol/L (20-31); Sodium 129 mmol/L (136-145); Total Protein 10.6 g/dL (5.7-8.2)
[2025-01-30] MEDS: SODIUM CHL 0.9% 1000 ML BAG XX ONE (08:45)
--- NOTE | 2025-01-30 08:52 | DVHPN2 ---
Progress Note Date Seen: Jan 30, 2025 Has the PT tested + for MRSA If YES, has PT been informed?: No Medical Necessity Reason Pt with a Central, PICC or Fol: Yes The following are medically ne: Kaplan Catheter Reason for kaplan catheter: Bladder Retention/Obstruc, Strict I&O Subjective Patient reports: Feels better Objective vital signs Vital Sign Date Time Temp Pulse Resp B/P (MAP) Pulse Ox O2 Delivery O2 Flow Rate FiO2 01/30/25 05:00 97.8 88 18 130/81 (97) 100 97.8 01/29/25 20:00 Room Air* 0 21 Total Intake and Output 01/29/25 01/29/25 01/30/25 15:00 23:00 07:00 Intake Total 1700 ml Output Total 1550 ml Balance 150 ml medications Current Medications Medications Dose Ordered Sig/Nghia Route Start Time Stop Time Status Last Admin Dose Admin Multivit/Ca Carb/ B Cmplx/FA/Prenat 1 tab DAILY PO 01/22/25 10:00 01/29/25 09:28 1 TAB Sodium Chloride 10 ml Q8HR IV 01/21/25 22:00 01/30/25 05:08 10 ML Ondansetron HCl 4 mg Q4HP PRN IV 01/21/25 16:15 Docusate Sodium 100 mg BIDPRN PRN PO 01/21/25 16:15 Acetaminophen 650 mg Q6HP PRN PO 01/21/25 16:15 Nitroglycerin 0.4 mg Q5MINP PRN SL 01/21/25 17:30 Morphine Sulfate 2 mg Q30M PRN IV 01/21/25 17:30 01/24/25 05:53 2 MG Methylprednisolone Sodium Succinate 1,000 mg DAILY IV 01/22/25 20:45 01/24/25 10:01 UNV Amlodipine Besylate 10 mg DAILY PO 01/24/25 10:00 01/29/25 09:27 10 MG Losartan Potassium 75 mg DAILY PO 01/24/25 10:00 01/29/25 09:28 75 MG Allopurinol 100 mg HS PO 01/24/25 22:00 01/29/25 21:27 100 MG Acetaminophen/ Hydrocodone Bitart 1 tab Q4HP PRN PO 01/24/25 03:45 01/29/25 20:23 1 TAB Tamsulosin HCl 0.4 mg QPM PO 01/24/25 13:15 01/29/25 18:03 0.4 MG Pantoprazole Sodium 40 mg DAILY@0600 PO 01/25/25 06:00 01/30/25 05:08 40 MG Enteral Nutritional Formula 240 ml BIDWM PO 01/25/25 18:00 01/30/25 08:41 240 ML Calcium Acetate 1,334 mg TIDWMEALS PO 01/26/25 12:00 01/30/25 08:39 1,334 MG Diphenhydramine HCl 25 mg Q6HP PRN PO 01/27/25 15:45 01/30/25 05:08 25 MG Examination: GENERAL:Normal, CVS:Normal, ABDOMEN:Normal laboratory and microbiology Laboratory Tests 01/30/25 07:05 Test 01/30/25 07:05 Range/Units Serum Glucose 84 74-106 mg/dL Microbiology Date/Time Source Procedure Growth Status 01/23/25 00:30 Voided Urine Urine Culture - Final Complete 01/22/25 10:19 Blood Blood Culture - Final NO GROWTH AFTER 5 DAYS OF INCUBATION. Complete Problem List/Assessment/Plan Problem List/Assessment/Plan Acute kidney injury-- acute tubular necrosis however rule out glomerular pathology//questionable tumor lysis syndrome in differential---needing dialysis Sepsis-?? 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 Renal function will be monitored over next several days Plan discussed with: Patient My Orders My Orders Orders - FLAVIO JACKSON MD Procedure Category Date Status Time * Radiologist Consult CONS 01/29/25 Transmitted 11:54 Hemodialysis Orders ORDERS 01/30/25 Transmitted 08:35 Dialysis Nursing WILNER 01/30/25 In Process Message 08:35 Document Fluid Input WILNER 8/20/25 In Process And Outpu 08:35 Dietary Evaluation Review Comments: Nutrition Recommendation: 1) Continue current POC 2) Monitor PO intake, lab values, weight trend, and I/O Expected Outcomes/Goals: To meet >75% estimated needs Lab values to improve Fu 3-5 days FLAVIO JACKSON MD Jan 30, 2025 08:52
--- NOTE | 2025-01-30 09:43 | DVHPNRES ---
Progress Note Date Seen: Jan 30, 2025 Resident Creating Document: CONSTANTINO GREENWOOD RESIDENT Has the PT tested + for MRSA If YES, has PT been informed?: No Medical Necessity Reason Pt with a Central, PICC or Fol: Yes The following are medically ne: Kaplan Catheter Reason for kaplan catheter: Bladder Retention/Obstruc, Strict I&O Subjective Review of Systems Patient is a 39-year-old male who denies any past medical history, presented to the ED with chief complaints of inability to urinate, shortness of breath mouth crusting, pain. He reported that he had difficulty urinating and was here 2 days ago with similar symptoms and had a Kaplan catheter placed but left AMA after. Patient was started on IV antibiotic vancomycin. past surgical history; denies Family history: liver cancer in father, breast cancer in grandmother personal history: patient smokes 2 cigarettes per day, drinks socially, uses marijuana, meth in the past, patient has prior STDs 2 years ago, he has unprotected sex with 1 partner 01/22/2025 Patient seen at bedside. Patient appears alert x3, in no distress, he complained of shortness of breath, unable to pee for 5 days bleeding and crusting of his lips with pain, pruritic rash which started in his wrists and progress to his arms , and in his legs. Patient did complain of night sweats, fevers, chills since 1 week. He also complained of white discharge from his penis, Since 1 month. Patient has diffuse lymphadenopathy. STD panel was ordered, radiologist was consulted for possible lymph node biopsy. Nephrology was consulted for possible dialysis. renal ultrasound 0.8 cm nonobstructive left kidney stone. Abdominal CT shows Severe hepatic steatosis., Retroperitoneal, pelvic side wall, inguinal lymphadenopathy. Lymphoma is a consideration., Punctate nonobstructive left kidney stone. Urinalysis shows positive signs of UTI. 01/23/25 patient seen at bedside. Patient appears alert x3, social service consult was placed for transfer to higher level of care for acute leukemia, lymphoma treatment. A tunnel catheter was placed for dialysis today and bled. lymph node biopsy was done. Patient was started on allopurinol 100 mg p.o., rasburicase IV b.i.d. 01/24/25 Patient seen At bedside. Patient is very tired, appeared confused, complains of abdominal pain. Kaplan catheter showed blood in the urine. Patients mouth appears black, is bleeding in the gums and tongue. patient underwent dialysis, patient was started on tamsulosin 0.[address] shows Multiple prominent bilateral axillary, mediastinal, and retroperitoneal nodes with splenomegaly. Findings are concerning for lymphoma. Recommend tissue sampling and PET-CT for further evaluation. social service was consulted for higher level of care, and stated that I [facility] declined to provide Auth for transfer. 01/25/2025 Patient seen at bedside. Patient is very tired, still complains of abdominal pain. Kaplan catheter still shows minimal blood. Patient is still bleeding in his gums and tongue. Patient underwent dialysis malignancy, patient was started on Nepro 240 mL p.o. b.i.d. Infectious Disease was consulted. Contacted [facility] for confirmation of his history but they did not pickup. pathology was contacted for peripheral smear and stated that the result will come on Tuesday. Pending lymph node biopsy results for higher level of care transfer. 01/26/2025 Patient was seen at the bedside. Patient has no active complaints. I spoke to the family, both his mother and mother of his child, regarding an update that patient will be requiring dialysis on Tuesday and a possible kidney biopsy after dialysis according to nephrology. ID consult has suggested ceftriaxone to be discontinued, urine cultures, D-dimer levels which came back 22.5 ( venous Doppler sent and showed no sonographic evidence for DVT in bilateral lower extremities ), fibrinogen levels which came back 158 and ferritin levels which came back high to 2528.9. Uric Acid came back 10.8. I spoke to the bilingual case manager today- Ira, who is working on transferring the patient to [facility] as they have agreed to take the patient provided the biopsy reports and peripheral smear come back. She is working to get [facility]'s approval. Biopsy reports are still pending and patient has been counseled along with his family today. 01/27/2025 Patient seen at bedside. Patient has no active complaints, states that he feels bloated and has mild pain in his left upper quadrant and lower back, also Stated feeling itchy and has bumps on his legs, for which Benadryl 25 mg q.6 PRN given. Flow cytometry is negative. Contacted pathology for biopsy the results, did not answer. Contacted social service for possible transfer to higher level of care, stated that [facility] has accepted and waiting for transfer back order to be signed. 01/28/2025 Patient seen at bedside. patient has no acute complaints. States that his abdominal pain has decreased and still is having itching. Explained to Mother on plan of care. Transfer back papers were signed by attending and given to the nurse, contacted psychosocial rehabilitation counselor about signed papers.ID recommended hematology oncology evaluation, and bone marrow biopsy and to monitor off antibiotics for now. 01/29/2025 Patient seen at bedside. Patient has no acute complaints. Please let he is still itchy sometimes. Awaiting bed in [facility]. Awaiting biopsy results. 01/30/25 Patient seen at bedside. He is alertx3, has no new complaints. He is undergoing dialysis today. patient is to get a kidney biopsy but wanted to discuss with his mother before doing it. He is still itchy sometimes, but denies any headaches, nausea, vomiting, or diarrhea. Still awaiting biopsy results, pending bed at [facility]. Objective vital signs Vital Sign Date Time Temp Pulse Resp B/P (MAP) Pulse Ox O2 Delivery O2 Flow Rate FiO2 01/30/25 09:00 97.8 97 18 150/90 (110) 98 97.8 01/30/25 08:15 Room Air* 0 21 Total Intake and Output 01/29/25 01/29/25 01/30/25 15:00 23:00 07:00 Intake Total 1700 ml Output Total 1550 ml Balance 150 ml medications Current Medications Medications Dose Ordered Sig/Nghia Route Start Time Stop Time Status Last Admin Dose Admin Multivit/Ca Carb/ B Cmplx/FA/Prenat 1 tab DAILY PO 01/22/25 10:00 01/29/25 09:28 1 TAB Sodium Chloride 10 ml Q8HR IV 01/21/25 22:00 01/30/25 05:08 10 ML Ondansetron HCl 4 mg Q4HP PRN IV 01/21/25 16:15 Docusate Sodium 100 mg BIDPRN PRN PO 01/21/25 16:15 Acetaminophen 650 mg Q6HP PRN PO 01/21/25 16:15 Nitroglycerin 0.4 mg Q5MINP PRN SL 01/21/25 17:30 Morphine Sulfate 2 mg Q30M PRN IV 01/21/25 17:30 01/24/25 05:53 2 MG Methylprednisolone Sodium Succinate 1,000 mg DAILY IV 01/22/25 20:45 01/24/25 10:01 UNV Amlodipine Besylate 10 mg DAILY PO 01/24/25 10:00 01/29/25 09:27 10 MG Losartan Potassium 75 mg DAILY PO 01/24/25 10:00 01/29/25 09:28 75 MG Allopurinol 100 mg HS PO 01/24/25 22:00 01/29/25 21:27 100 MG Acetaminophen/ Hydrocodone Bitart 1 tab Q4HP PRN PO 01/24/25 03:45 01/29/25 20:23 1 TAB Tamsulosin HCl 0.4 mg QPM PO 01/24/25 13:15 01/29/25 18:03 0.4 MG Pantoprazole Sodium 40 mg DAILY@0600 PO 01/25/25 06:00 01/30/25 05:08 40 MG Enteral Nutritional Formula 240 ml BIDWM PO 01/25/25 18:00 01/30/25 08:41 240 ML Calcium Acetate 1,334 mg TIDWMEALS PO 01/26/25 12:00 01/30/25 08:39 1,334 MG Diphenhydramine HCl 25 mg Q6HP PRN PO 01/27/25 15:45 01/30/25 05:08 25 MG Examination General: Patient alert and oriented in person, place and time. Patient following commands. HEENT: Normocephalic, atraumatic, moist mucous membranes, diffuse lymphadenopathy Respiratory/pulmonary: Clear lungs bilaterally, vesicular murmurs present in almost all lung mckinney, no associated crackles or wheezes. Cardiovascular: Normal heart sounds S1 and S2 with no associated murmurs Abdomen: Abdomen nondistended, there is no pain to palpation in any of the abdominal quadrants, no palpable masses. Kaplan catheter in place, draining yellow urine Extremities: There is no peripheral edema present at the lower extremities. Peripheral Pulses: 3+ Radial (R). 3+ Radial (L). 3+ Dorsalis pedis (R). 3+ Dorsalis pedis(L) Skin: Rashes on bilateral arms and legs, with pruritus Neurological: Intact cranial nerves with no focal neurologic deficits laboratory and microbiology Laboratory Tests 01/30/25 07:05 Test 01/30/25 07:05 Range/Units Serum Glucose 84 74-106 mg/dL Microbiology Date/Time Source Procedure Growth Status 01/23/25 00:30 Voided Urine Urine Culture - Final Complete 01/22/25 10:19 Blood Blood Culture - Final NO GROWTH AFTER 5 DAYS OF INCUBATION. 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 Findings are concerning for lymphoma. -ceftriaxone - [place] -multivitamin - public Health was consulted for his history -social Service consulted for possible transfer to [facility]. - Papers Signed and given to the nurse # sepsis due to UTI # Acute complicated UTI # 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 # Anuria # hyperuricemia # hyperphosphatemia #Thrombocytopenia #Hyponatremia #Metabolic acidosis anion gap #Paraproteinemia #Hypocalcemia - KEIRA positive - patient has Kaplan catheter with minimal urine - nephrology consulted for possible dialysis - social service consulted for higher level of care - tunnel catheter placed for dialysis - patient given tamsulosin 0.4 mg p.o. - Patient given Nepro 240ml, b.i.d. # rule out STI # unsafe sexual practices - ordered hepatitis-B, hepatitis-C, syphilis, CMV, EBV - HIV negative - EBV antibody positive - KEIRA positive # polysubstance abuse disorder - patient counseled on risks of using drugs, cigarettes, alcohol for more than 17 minutes PUD PPX: Protonix 40 mg DVT PPX: Not Indicated Goals of care addressed with the patient for more than 27 minutes: Full code status Case discussed with , patient and nurse Plan discussed with: Patient Dietary Evaluation Review Comments: Nutrition Recommendation: 1) Continue current POC 2) Monitor PO intake, lab values, weight trend, and I/O Expected Outcomes/Goals: To meet >75% estimated needs Lab values to improve Fu 3-5 days CONSTANTINO GREENWOOD RESIDENT Jan 30, 2025 09:43
--- NOTE | 2025-01-30 18:47 | DVHDSRES ---
Discharge Summary Date of Admission Resident Creating Document: CONSTANTINO GREENWOOD Jan 21, 2025 at 17:19 Date of Discharge: Jan 23, 2025 Admitting Diagnosis # generalized lymphadenopathy due to possible lymphoma Labs/Diagnostic Data: Laboratory Results Test 01/30/25 07:05 01/29/25 12:15 01/29/25 07:00 01/29/25 05:47 White Blood Count 12.1 10^3/uL (4.4-10.8) Red Blood Count 2.94 10^6/uL (4.5-5.90) Hemoglobin 9.8 g/dL (13.5-17.5) Hematocrit 28.8 % (41.0-53.0) Mean Corpuscular Volume 98.0 fL (80.0-100.0) Mean Corpuscular Hemoglobin 33.4 pg (28.0-32.0) Mean Corpuscular Hemoglobin Concent 34.0 g/dL (32.0-36.0) Red Cell Distribution Width 15.1 % (11.8-14.3) Platelet Count 318 10^3/uL (140-450) Mean Platelet Volume 7.6 fL (6.9-10.8) Neutrophils (%) (Auto) 61.2 % (37.0-80.0) Lymphocytes (%) (Auto) 23.9 % (10.0-50.0) Monocytes (%) (Auto) 5.9 % (0.0-12.0) Eosinophils (%) (Auto) 7.9 % (0.0-7.0) Basophils (%) (Auto) 1.1 % (0.0-2.0) Neutrophils # (Auto) 7.4 10 ^3/uL (1.6-8.6) Lymphocytes # (Auto) 2.9 10 ^3/uL (0.4-5.4) Monocytes # (Auto) 0.7 10 ^3/uL (0-1.3) Eosinophils # (Auto) 1.0 10 ^3/uL (0-0.8) Basophils # (Auto) 0.1 10 ^3/uL (0-0.2) Nucleated Red Blood Cells 0.2 % Sodium Level 129 mmol/L (136-145) Potassium Level 4.9 mmol/L (3.5-5.1) Chloride Level 102 mmol/L (98-107) Carbon Dioxide Level 19 mmol/L (20-31) Anion Gap 8 (5-15) Blood Urea Nitrogen 23 mg/dL (9-23) Creatinine 2.14 mg/dL (0.700-1.30) Glomerular Filtration Rate Calc 39 mL/min (>90) BUN/Creatinine Ratio 10.7 (10.0-20.0) Serum Glucose 84 mg/dL (74-106) Calcium Level 7.7 mg/dL (8.7-10.4) Total Bilirubin 1.6 mg/dL (0.2-1.0) Aspartate Amino Transferase (AST) 80 U/L (13-40) Alanine Aminotransferase (ALT) 189 U/L (7-40) Alkaline Phosphatase 107 U/L (46-116) Total Protein 10.6 g/dL (5.7-8.2) Albumin 2.7 g/dL (3.2-4.8) Prothrombin Time 16.4 sec (9.3-11.8) Prothrombin Time INR 1.62 (0.9-1.15) Uric Acid 7.3 mg/dL (3.7-9.2) Phosphorus Level 4.5 mg/dL (2.4-5.1) Direct Bilirubin 1.0 mg/dL (<0.3) HIV (1&2) Antibody Negative (Negative) Test 01/26/25 05:24 01/25/25 08:15 01/25/25 06:21 01/24/25 12:56 Fibrinogen 158 mg/dL (177-375) D-Dimer, Quantitative 22.50 mg/L FEU (0.0-0.49) Ferritin 2528.9 ng/mL (22-322) Monoscreen Negative Differential Total Cells Counted 100.0 (100) Neutrophils % (Manual) 72 (37.0-80.0) Band Neutrophils % (Manual) 2 Lymphocytes % (Manual) 20 (10.0-50.0) Monocytes % (Manual) 5 (0-12) Eosinophils % (Manual) 1 (0-7) Basophils % (Manual) 0 (0.0-2.0) Metamyelocytes % (manual) 0 Myelocytes % (Manual) 0 Promyelocytes % (Manual) 0 Blast Cells % (Manual) 0 Reactive Lymphocytes 0 Platelet Estimate Decreased Lactate Dehydrogenase 474 U/L (120-246) Test 01/23/25 23:04 01/23/25 06:34 01/23/25 00:30 01/22/25 12:58 Activated Partial Thromboplast Time 33.2 SEC (24.5-34.5) Serum Immunoglobulin G 4963 mg/dL (603-1613) Immunoglobulin A 526 mg/dL (90-386) Immunoglobulin M 121 mg/dL (20-172) Serum Immunofixation Comment (.) Anti-Nuclear Antibody Comment Comment (.) Cytoplasmic ANCA (c-ANCA) Antibody <1:20 titer (Neg:<1:20) Anti-Proteinase 3 (c-ANCA) 0.2 units (0.0-0.9) Atypical p-ANCA <1:20 titer (Neg:<1:20) Perinuclear ANCA (p-ANCA) Antibody <1:20 titer (Neg:<1:20) Myeloperoxidase Antibody <0.2 units (0.0-0.9) ANGI-1 Antibody <0.2 AI (0.0-0.9) SS-A/Ro Antibody <0.2 AI (0.0-0.9) SS-B/La Antibody <0.2 AI (0.0-0.9) Sm Antibody <0.2 AI (0.0-0.9) PLASTIC SURGERY NURSE Antibody 1.7 AI (0.0-0.9) Scl-70 (Scleroderma) Antibody <0.2 AI (0.0-0.9) Anti-Double Strand DNA Antibody 4 IU/mL (0-9) Chromatin Antibody <0.2 AI (0.0-0.9) Centromere B Antibody <0.2 AI (0.0-0.9) Anti-Glomerular Basement Memb Ab 0.2 units (0.0-0.9) Complement C3 74 mg/dL (82-167) Complement C4 4 mg/dL (12-38) [place] Light Chains, Quant 787.7 mg/L (3.3-19.4) [place]/Lambda Light Chain Ratio 1.63 (0.26-1.65) Urine Creatinine 128.70 mg/dL (30.0-125.0) Urine Protein/Creatinine Ratio 2.22 Urine Sodium 63 mmol/L (40-220) Urine Total Protein 285.3 mg/dL (1-14) Urine Opiates Screen Neg (NEGATIVE) Urine Fentanyl Screen Neg (NEGATIVE) Urine Barbiturates Screen Neg (NEGATIVE) Urine Phencyclidine Screen Neg (NEGATIVE) Urine Amphetamines Screen Neg (NEGATIVE) Urine Benzodiazepines Screen Neg (NEGATIVE) Urine Cocaine Screen Neg (NEGATIVE) Urine Cannabinoids Screen Neg (NEGATIVE) Chlamydia trachomatis (JUAN) Negative (Negative) Neisseria gonorrhoeae (JUAN) Negative (Negative) Anti-Nuclear Antibody Screen Positive (Negative) Cytomegalovirus IgG Antibody <0.60 U/mL (0.00-0.59) Cytomegalovirus IgM Antibody <30.0 AU/mL (0.0-29.9) Test 01/22/25 10:19 01/21/25 20:01 01/21/25 13:17 Erythrocyte Sedimentation Rate 86 mm/hr (0-20) Reticulocyte Count (auto) 0.89 % (0.5-1.5) Lactic Acid Level 1.9 mmol/L (0.4-2.0) C-Reactive Protein High Sensitivity 10.22 mg/dL (<1.0) Parathyroid Hormone (Intact) 170.4 pg/mL (18.4-80.1) Random Vancomycin Level 16.6 ug/mL (5-10) Plasma/Serum Blood Alcohol < 3.0 mg/dL (<10) Treponema pallidum Antibody Non-reactive (Negative) [place] Virus Capsid Ag IgG Ab 82.2 U/mL (0.0-17.9) [place] Virus Capsid Ag IgM Ab 48.6 U/mL (0.0-35.9) [place] Early Antigen IgG Ab >600.0 U/mL (0.0-17.9) [place] Virus Ab Interpret Comment (.) Hepatitis B Surface Antigen Negative (Negative) Hepatitis C Antibody Negative (Negative) Urine Color [place] (Yellow) Urine Clarity Ex.turbid (Clear) Urine pH 5.5 (5.0-9.0) Urine Specific [place] 1.027 (1.001-1.035) Urine Protein 2+ (Negative) Urine Ketones Trace (Negative) Urine Blood 3+ /uL (Negative) Urine Nitrite Negative (Negative) Urine Bilirubin 1+ (Negative) Urine Urobilinogen Normal mg/dL (Negative) Urine Leukocyte Esterase 3+ /uL (Negative) Urine RBC 387 /hpf (0 - 3) Urine Microscopic WBC 100 /HPF (0-3) Urine Squamous Epithelial Cells Mod /hpf (<5) Urine Amorphous Crystals Few /hpf (None Seen) Urine Bacteria Few /hpf (None Seen) Urine Hyaline Casts Few /lpf (0 - 2) Urine Mucus Few (None Seen) Urine Glucose 1+ mg/dL (Normal) Hemoglobin A1c 5.2 % A1C (<5.7) Other Laboratory Tests 01/30/25 07:05 Brief Hx & Hospital Course: Patient is a 39-year-old male who denies any past medical history, presented to the ED with chief complaints of inability to urinate, shortness of breath mouth crusting, pain. He reported that he had difficulty urinating and was here 2 days ago with similar symptoms and had a [place] catheter placed but left AMA after. Patient was started on IV antibiotic vancomycin. past surgical history; denies Family history: liver cancer in father, breast cancer in grandmother personal history: patient smokes 2 cigarettes per day, drinks socially, uses marijuana, meth in the past, patient has prior STDs 2 years ago, he has unprotected sex with 1 partner brief Hospital course: Patient came to the hospital with generalized weakness, generalized lymphadenopathy due to possible lymphoma, possible tumor lysis syndrome, and we ruled out possible Kaposi sarcoma vs HIV. IR was consulted for lymph node biopsy, lymph node biopsy was done and showed Pleocytosis appears polyclonal. Flow cytometry revealed no significant lymphoid immunophenotypic abnormalities. Nephrology was consulted for MALATHI likely due to ATN requiring dialysis which was done . nephrology recommended kidney biopsy for which patient was going to ask his family. renal ultrasound 0.8 cm nonobstructive left kidney stone CT abdomen showed Multiple prominent bilateral axillary, mediastinal, and retroperitoneal nodes with splenomegaly. Findings are concerning for lymphoma. CT shows Multiple prominent bilateral axillary, mediastinal, and retroperitoneal nodes with splenomegaly. Findings are concerning for lymphoma. ID consult has suggested ceftriaxone to be discontinued. ID recommended hematology oncology evaluation, and bone marrow biopsy. social service was consulted for higher level of care For sepsis due to UTI, acute complicated UTI, he was given IV fluids, had a Meadows's catheter placed and was given dialysis, monitored labs. patient was given ceftriaxone, [place], multivitamin, allopurinol 100 mg, tamsulosin, diphenhydramine. Public health Was consulted for further investigation of his history but did not respond. EBV Antibody's were positive. KEIRA positive. We ruled out any STIs. for PUD prophylaxis Protonix 40 mg p.o. given. patient has polysubstance abuse disorder, he was counseled on the risks of using drugs, cigarettes, alcohol for more than 17 minutes. Patient stable for discharge, States that he does feel better, Meadows's catheter was removed and patient tolerated well. Patient understands that he has to go to [place] for higher level of care. Patient communicated understanding of his discharge plan and has agreed. General: Patient alert and oriented in person, place and time. Patient following commands. HEENT: Normocephalic, atraumatic, moist mucous membranes, diffuse lymphadenopathy Respiratory/pulmonary: Clear lungs bilaterally, vesicular murmurs present in almost all lung mckinney, no associated crackles or wheezes. Cardiovascular: Normal heart sounds S1 and S2 with no associated murmurs Abdomen: Abdomen nondistended, there is no pain to palpation in any of the abdominal quadrants, no palpable masses. Extremities: There is no peripheral edema present at the lower extremities. Peripheral Pulses: 3+ Radial (R). 3+ Radial (L). 3+ Dorsalis pedis (R). 3+ Dorsalis pedis(L) Skin: Rashes on bilateral arms and legs, with pruritus Neurological: Intact cranial nerves with no focal neurologic deficits Operations or Procedures ORDERING PHYSICIAN: JOSE DELANEY MD PROCEDURE(s): CXRP - CHEST PORTABLE REASON: fever ORDER NUMBER(s): [id number], ACCESSION NUMBER(s): [id number] CHEST RADIOGRAPH Indication: fever Technique: Single frontal view of the chest was obtained COMPARISON: XY CHEST XRAY 1 VIEW on DOS: 01/21/25 FINDINGS: Lines and Tubes: None Lungs: Mild congestion Pleura: No effusion. No pneumothorax. Cardiomediastinal contours: Unremarkable Bones: Unremarkable IMPRESSION: Mild increased interstitial prominence may represent mild viral pneumonia. ATED BY: JAMIE FLORES MD DICTATED DATE/TIME: 01/21/25 1255 ORDERING PHYSICIAN: JOSE DELANEY MD PROCEDURE(s): ABPL - CT AB PEL WO CON-NO ORAL OR IV REASON: abdominal pain ORDER NUMBER(s): [id number], ACCESSION NUMBER(s): [id number] CT CT AB PEL WO CON-NO ORAL OR IV INDICATION: abdominal pain EXAM DATE: 01/21/2025 03:11 PM COMPARISON: None RADIATION DOSE: CTDIvol: 20.14 mGy, DLP: 1260.84 mGy*cm PROCEDURE: Helical CT images were obtained of the abdomen and pelvis without IV contrast Sagittal and coronal reconstructions are provided. ORAL CONTRAST: None. ADDITIONAL IMAGES / REFORMATS: None All CT scans at this medical facility are performed using dose modulation techniques as appropriate to a performed exam including the following: Automated exposure control was utilized; adjustment of the MA and/or KV according to patient size; and use of iterative reconstruction technique. FINDINGS: LUNG BASE: Normal. LIVER: Severe hepatic steatosis. GALLBLADDER AND BILIARY TREE: No calcified gallstones. Normal caliber wall. No intra- or extrahepatic biliary ductal dilation. PANCREAS: Normal. SPLEEN: Normal. BOWEL: Mild colonic diverticulosis. Normal appendix. ADRENALS: Normal. KIDNEYS AND URETER: Punctate nonobstructive left kidney stone. BLADDER: Meadows in the bladder. REPRODUCTIVE ORGANS: Normal. LYMPH NODES:No lymphadenopathy. PERITONEUM: No ascites or free air. No other fluid collection. VESSELS: Scattered atherosclerotic calcifications are noted. RETROPERITONEUM: Retroperitoneal, pelvic side wall, inguinal lymphadenopathy. ABDOMINAL WALL: Normal. BONES: Scattered osseous degenerative changes are noted. IMPRESSION: Severe hepatic steatosis. Retroperitoneal, pelvic side wall, inguinal lymphadenopathy. Lymphoma is a consideration. Punctate nonobstructive left kidney stone. ATED BY: TORIN GOMEZ MD DICTATED DATE/TIME: 01/21/25 1545 ORDERING PHYSICIAN: MEMO BUSH DNP PROCEDURE(s): THOUS - US GUIDANCE FOR NEEDLE PLACEME REASON: LYMPH NODE BX ORDER NUMBER(s): [id number], ACCESSION NUMBER(s): [id number] PROCEDURE: Ultrasound-guided biopsy Procedural Personnel Attending physician(s): Patrick Lisa Fellow physician(s): None Resident physician(s): None Advanced practice provider(s): None Procedure Date (mm/dd/yyyy): 01/22/2025 Pre-procedure diagnosis: Lymphadenopathy Post-procedure diagnosis: Same Indication: Histopathologic diagnosis and molecular characterization Previous biopsy of same target: No Additional clinical history: None Complications: No immediate complications. IMPRESSION: Ultrasound-guided biopsy of left inguinal lymph node. Plan: Specimen(s) sent for evaluation. PROCEDURE SUMMARY: - Percutaneous US-guided core needle biopsy - Additional procedure(s): None PROCEDURE DETAILS: Pre-procedure Reference imaging for biopsy target: Ct abd/pel 01/21/25 Consent: Informed consent for the procedure including risks, benefits and alternatives was obtained and time-out was performed prior to the procedure. Preparation: The site was prepared and draped using maximal sterile barrier technique including cutaneous antisepsis. Anesthesia/sedation Level of anesthesia/sedation: No sedation Anesthesia/sedation administered by: Not applicable Total intra-service sedation time (minutes): 0 Imaging prior to biopsy The patient was positioned supine. Initial imaging was performed. Biopsy target: - Organ or target location: Lymph Node - Laterality: Left - Maximal diameter (cm): 3.2 Other findings: None Biopsy Local anesthesia was administered. Under US guidance, the biopsy needle was advanced to the target and biopsy was performed. Coaxial needle: None Core needle biopsy device: [employer] Core needle size: 18 gauge Number of core specimens: 4 Fine needle aspiration device: na Fine needle size: Not applicable Number of FNA specimens: Not applicable On-site assessment of biopsy adequacy: No Additional sampling recommendations: None Preliminary assessment of sample adequacy: Not applicable Needle removal The biopsy needle was removed and a sterile dressing was applied. Tract embolization: None Imaging following biopsy Immediate post-biopsy ultrasound was performed. Post-biopsy imaging findings: no significant hemorrhage Additional Details Additional description of procedure: None Registry event: V/3/g Device used: None Equipment details: None Unique Device Identifiers: Not available Specimens removed: Biopsy samples as detailed above Estimated blood loss (mL): Less than 10 Standardized report: [email or web address] Attestation Signer name: Patrick Lisa I attest that I was present for the entire procedure. I reviewed the stored images and agree with the report as written. DICTATED BY: PATRICK LISA MD DICTATED DATE/TIME: 01/22/25 2508 ORDERING PHYSICIAN: CONSTANTINO GREENWOOD RESIDENT PROCEDURE(s): KIDUS - KIDNEY REASON: Malathi vs CKD, rule out hydronephorsis ORDER NUMBER(s): [id number], ACCESSION NUMBER(s): [id number] US KIDNEY HISTORY: Malathi vs CKD, rule out hydronephorsis COMPARISON: None TECHNIQUE: Transverse and longitudinal grayscale and color doppler images were obtained of the kidneys and bladder. FINDINGS: Right kidney: Size: 12.1 cm Cortical thickness: Normal Echogenicity: Normal Stones: None Masses: None Hydronephrosis: None Ureters: Not well visualized. Other: None Left kidney: Size: 12.5 cm Cortical thickness: Normal Echogenicity: Normal Stones: 0.8 cm nonobstructive left kidney stone. Masses: None Hydronephrosis: None Ureters: Not well visualized. Other: None Bladder: Meadows. Other: None. IMPRESSION: 0.8 cm nonobstructive left kidney stone. DICTATED BY: TORIN GOMEZ MD DICTATED DATE/TIME: 01/22/25 1037 ORDERING PHYSICIAN: GAIL SANDS MD PROCEDURE(s): CX2CT - CHEST WITHOUT CONTRAST REASON: evaluate infiltrate ORDER NUMBER(s): [id number], ACCESSION NUMBER(s): [id number] EXAM: CT CHEST WITHOUT CONTRAST History: evaluate infiltrate Comparison Study: XY CHEST PORTABLE on DOS: 01/21/25, XY CHEST XRAY 1 VIEW on DOS: 01/21/25 TECHNIQUE: Multidetector CT of the chest was performed. Imaging was performed without IV contrast. Axial, coronal, and sagittal multiplanar reformats were obtained from the axial data set by the technologist. Radiation Dose : CTDI vol 17.03 mGy, DLP 17.03 mGy*cm. Findings: Lungs: The lungs are clear. Pleura: Unremarkable Heart/Great vessels: No cardiomegaly or pericardial effusion. Mediastinum: Multiple prominent mediastinal nodes. Soft tissues/Bones: Moderate degenerative changes of the midthoracic spine. Multiple enlarged bilateral axillary nodes. Multiple prominent retroperitoneal nodes. Hepatic steatosis. Splenomegaly. Impression: 1. No acute cardiopulmonary disease. 2. Multiple prominent bilateral axillary, mediastinal, and retroperitoneal nodes with splenomegaly. Findings are concerning for lymphoma. Recommend tissue sampling and PET-CT for further evaluation. Of note, the bilateral axillary nodes are amenable to biopsy. DICTATED BY: MAGGIE AGUILAR DO DICTATED DATE/TIME: 01/23/25 0410 ORDERING PHYSICIAN: CONSTANTINO GREENWOOD PROCEDURE(s): INVENCAT - Insertion of Venous Cath REASON: HD CATH PL ORDER NUMBER(s): [id number], ACCESSION NUMBER(s): [id number] XY Insertion of Venous Cath, HISTORY: HD CATH PL due to ESRD PROCEDURE: Informed consent was obtained. The patient was placed supine on the interventional table. A limited localization ultrasound of the right neck base was obtained. The right neck base and upper chest were prepped with chlorhexidine which was allowed to dry and draped in the usual sterile fashion. Time out was performed. IV sedation was administered. The skin and the soft tissues were infiltrated with 1% Lidocaine. With real-time ultrasound guidance, the internal jugular vein was accessed with a micropuncture kit, and an image documenting patency was recorded to PACS. A subcutaneous tunneled tract was created from the right upper chest to the venotomy site. A 14.5 [place] Path, 19 cm long hemodialysis catheter was advanced through the tunneled tract. Fluoroscopy was used to advance a guidewire through the internal jugular vein into the inferior vena cava. Following serial dilatation, a 15 [place] peel-away sheath was introduced, though which was advanced the catheter into the right atrium. The catheter tip position was confirmed with fluoroscopy. There was satisfactory flow in both lumens. The catheter lumens were flushed with saline and heparin was left indwelling in the catheter. A post-procedure image of the chest was obtained. The neck incision site was closed with Dermabond and dressed sterilely. The catheter was sutured at the skin surface and exit site also dressed sterilely. No immediate complication was identified. 18 mGy FLUOROSCOPY TIME: 1.5 minutes. SEDATION: Dr. Mellisa Gomez was personally responsible for the administration of moderate sedation during the procedure performed, including the use of an independent trained observer who had no other duties during the procedure. The drugs utilized were IV fentanyl and versed (see nursing log for details). The total time of supervision by the attending physician was approximately 30 minutes. FINDINGS: Widely patent right IJV. Post procedure image demonstrates smooth course of the hemodialysis catheter with the tip in the right atrium. IMPRESSION: Placement of 14.5 [place] Path, 19 cm long hemodialysis catheter through right internal jugular vein. Plan: Please contact IR for removal when no longer needed. ATED BY: TORIN GOMEZ MD DICTATED DATE/TIME: 01/23/25 1443 ORDERING PHYSICIAN: TYE ANDERSON PROCEDURE(s): KUB - KUB ABDOMEN SINGLE VIEW REASON: abd pain ORDER NUMBER(s): [id number], ACCESSION NUMBER(s): [id number] CHEST RADIOGRAPH Indication: abd pain Technique: Single frontal view of the chest was obtained Comparison: US KIDNEY on DOS: 01/22/25, CT CT AB PEL WO CON-NO ORAL OR IV on DOS: 01/21/25 FINDINGS: Lines and Tubes: None Lungs: No focal consolidation. Pleura: No effusion. No pneumothorax. Cardiomediastinal contours: Unremarkable Bones: No acute osseous abnormality. IMPRESSION: 1. No acute cardiopulmonary disease. HS:Y =--- DICTATED BY: DORINA TURNER Jr., DO DICTATED DATE/TIME: 01/24/25 1532 ORDERING PHYSICIAN: KAMALA DESIR PROCEDURE(s): BLDVT - BiLat Lower DVT REASON: high d dimer 22.5 ORDER NUMBER(s): [id number], ACCESSION NUMBER(s): [id number] CLINICAL HISTORY: high d dimer 22.5 TECHNIQUE: Color and duplex doppler imagine of the bilateral lower extremity veins was performed. Vessel compression and augmentation if possible was also performed. COMPARISON: None FINDINGS: Right lower Extremity: Right common femoral vein: Normal compressibility and flow. Right superficial femoral vein: Normal compressibility and flow. Right popliteal vein: Normal compressibility and flow. Proximal calf veins demonstrate flow. Left lower Extremity: Left common femoral vein: Normal compressibility and flow. Left superficial femoral vein: Normal compressibility and flow. Left popliteal vein: Normal compressibility and flow. Proximal calf veins demonstrate flow. IMPRESSION: NO SONOGRAPHIC EVIDENCE FOR DEEP VENOUS THROMBOSIS IN THE BILATERAL LOWER EXTREMITY VEINS. ATED BY: HECTOR MUNOZ MD DICTATED DATE/TIME: 01/26/25 1148 Condition at Discharge: Stable Final Diagnosis/Problems List # generalized lymphadenopathy due to possible lymphoma # MALATHI likely ATN requiring HD # possible tumor lysis syndrome # ruled out possible Kaposi sarcoma vs HIV # sepsis due to UTI # Acute complicated UTI # Anuria # hyperuricemia # hyperphosphatemia # Thrombocytopenia # Hyponatremia # Metabolic acidosis anion gap # Paraproteinemia # Hypocalcemia # ruled out STI # unsafe sexual practices # polysubstance abuse disorder # severe calorie malnutrition # transaminitis # 0.8cm kidney stone # anemia likely normocytic Discharge Disposition: Acute Care Facility Discharge Instruct/Medications Diet: Regular Activity: No Restrictions, As Tolerated Follow Up/Referral: PCP 1-2 WEEKS Medications: SEE MED LIST No Active Prescriptions or Reported Meds Discharge Statement: "Patient was advised to return to the ER or call 911 if any headaches, dizziness, shortness of breath, chest pain, abdominal pain, bleeding, fevers, or worsening of medical condition. Patient was counseled about treatment plan, medications, possible side effects, patientverbalized understanding. All questions were answered to the best of my ability. This discharge took greater then 30 minutes in planning, reviewing documentation, counseling the patient, and discussing with other team members." ASSESSMENT ASSESSMENT Assessment POSSIBLE ACUTE LEUKEMIA/ LYMPHOMA CONSTANTINO GREENWOOD RESIDENT Jan 30, 2025 18:47
--- NOTE | 2025-01-30 20:46 | DVHPN2 ---
Consult Progress Note Objective vital signs Vital Sign Date Time Temp Pulse Resp B/P (MAP) Pulse Ox O2 Delivery O2 Flow Rate FiO2 01/30/25 20:00 18 100 Room Air* 0 21 01/30/25 17:00 98.4 89 131/71 (91) 98.4 Total Intake and Output 01/29/25 01/29/25 01/30/25 15:00 23:00 07:00 Intake Total 1700 ml Output Total 1550 ml Balance 150 ml medications Current Medications Medications Dose Ordered Sig/Nghia Route Start Time Stop Time Status Last Admin Dose Admin Multivit/Ca Carb/ B Cmplx/FA/Prenat 1 tab DAILY PO 01/22/25 10:00 01/30/25 09:52 1 TAB Sodium Chloride 10 ml Q8HR IV 01/21/25 22:00 01/30/25 14:05 10 ML Ondansetron HCl 4 mg Q4HP PRN IV 01/21/25 16:15 Docusate Sodium 100 mg BIDPRN PRN PO 01/21/25 16:15 Acetaminophen 650 mg Q6HP PRN PO 01/21/25 16:15 Nitroglycerin 0.4 mg Q5MINP PRN SL 01/21/25 17:30 Methylprednisolone Sodium Succinate 1,000 mg DAILY IV 01/22/25 20:45 01/24/25 10:01 UNV Amlodipine Besylate 10 mg DAILY PO 01/24/25 10:00 01/29/25 09:27 10 MG Losartan Potassium 75 mg DAILY PO 01/24/25 10:00 01/29/25 09:28 75 MG Allopurinol 100 mg HS PO 01/24/25 22:00 01/29/25 21:27 100 MG Acetaminophen/ Hydrocodone Bitart 1 tab Q4HP PRN PO 01/24/25 03:45 01/29/25 20:23 1 TAB Tamsulosin HCl 0.4 mg QPM PO 01/24/25 13:15 01/30/25 18:19 0.4 MG Pantoprazole Sodium 40 mg DAILY@0600 PO 01/25/25 06:00 01/30/25 05:08 40 MG Enteral Nutritional Formula 240 ml BIDWM PO 01/25/25 18:00 01/30/25 18:19 240 ML Calcium Acetate 1,334 mg TIDWMEALS PO 01/26/25 12:00 01/30/25 18:19 1,334 MG Diphenhydramine HCl 25 mg Q6HP PRN PO 01/27/25 15:45 01/30/25 14:04 25 MG laboratory and microbiology Laboratory Tests 01/30/25 07:05 Test 01/30/25 07:05 Range/Units Serum Glucose 84 74-106 mg/dL Problem List/Assessment/Plan Problem List/Assessment/Plan patient seen at bedside full note to follow, denies pain, mild generalized rash no fever or chills cytology without malignancy diagnosis, normal results recommend hematology oncology evaluation, bone marrow biopsy worsening leukocytosis, monitor off antibiotics for now Dietary Evaluation Review Comments: Nutrition Recommendation: 1) Continue current POC 2) Monitor PO intake, lab values, weight trend, and I/O Expected Outcomes/Goals: To meet >75% estimated needs Lab values to improve Fu 3-5 days BOYD JAUREGUI MD Jan 30, 2025 20:46
[2025-01-31 10:07] LABS: Albumin 2.3 g/dL (2.9-4.4); Alpha-1-Globulin 0.3 g/dL (0.0-0.4); Alpha-2-Globulin 0.6 g/dL (0.4-1.0); Gamma Globulin 4.6 g/dL (0.4-1.8)
== END 2025-01-30 21:40 | disposition short-term general hospital (02) | DRG 710 ==
LOC: EDBD 11:22 → EDUNIT# 11:22 → ER 11:22 → OVERFLOW 17:19 → TELE-WESTW 01-22 04:13 → WEST WING 01-24 23:27
PROVIDERS: ADMIT Student in an Organized Health Care Education/Training Program; ATTEND Emergency Medicine
PROC: 07BJ3ZX Excision of Left Inguinal Lymphatic, Percutaneous Approach, Diagnostic (ICD-10-PCS; principal; 2025-01-22)
PROC: 5A1D70Z Performance of Urinary Filtration, Intermittent, Less than 6 Hours Per Day (ICD-10-PCS; 2025-01-23)
PROC: 0JH63XZ Insertion of Tunneled Vascular Access Device into Chest Subcutaneous Tissue and Fascia, Percutaneous Approach (ICD-10-PCS; 2025-01-23)
PROC: 02H633Z Insertion of Infusion Device into Right Atrium, Percutaneous Approach (ICD-10-PCS; 2025-01-23)
PROC: B5181ZA Fluoroscopy of Superior Vena Cava using Low Osmolar Contrast, Guidance (ICD-10-PCS; 2025-01-23)
PROC: B548ZZA Ultrasonography of Superior Vena Cava, Guidance (ICD-10-PCS; 2025-01-23)
PROC: 5A1D70Z Performance of Urinary Filtration, Intermittent, Less than 6 Hours Per Day (ICD-10-PCS; 2025-01-24)
PROC: 5A1D70Z Performance of Urinary Filtration, Intermittent, Less than 6 Hours Per Day (ICD-10-PCS; 2025-01-25)
PROC: 5A1D70Z Performance of Urinary Filtration, Intermittent, Less than 6 Hours Per Day (ICD-10-PCS; 2025-01-28)
PROC: 5A1D70Z Performance of Urinary Filtration, Intermittent, Less than 6 Hours Per Day (ICD-10-PCS; 2025-01-30)
DX: A41.9 Sepsis, unspecified organism (principal); E88.3 Tumor lysis syndrome; E43 Unspecified severe protein-calorie malnutrition; D69.6 Thrombocytopenia, unspecified; N17.0 Acute kidney failure with tubular necrosis; C94.80 Other specified leukemias not having achieved remission; E87.20 Acidosis, unspecified; J18.9 Pneumonia, unspecified organism; D89.2 Hypergammaglobulinemia, unspecified; R34 Anuria and oliguria; E83.39 Other disorders of phosphorus metabolism; E83.51 Hypocalcemia; E87.1 Hypo-osmolality and hyponatremia; N39.0 Urinary tract infection, site not specified; R59.1 Generalized enlarged lymph nodes; F17.210 Nicotine dependence, cigarettes, uncomplicated; B27.00 Gammaherpesviral mononucleosis without complication; N20.0 Calculus of kidney; K76.0 Fatty (change of) liver, not elsewhere classified; F19.10 Other psychoactive substance abuse, uncomplicated; I10 Essential (primary) hypertension; C85.90 Non-Hodgkin lymphoma, unspecified, unspecified site; D64.9 Anemia, unspecified; Z80.8 Family history of malignant neoplasm of other organs or systems; Z80.3 Family history of malignant neoplasm of breast; Z68.28 Body mass index [BMI] 28.0-28.9, adult
CPT/HCPCS: 36415; 36558; 38505; 71045; 71250; 74018; 74176; 76775; 76942; 77001; 80048; 80053; 80076; 80202; 80307; 80320; 81001; 82570; 82728; 82784; 83036; 83516; 83520; 83521; 83605; 83615; 83970; 84100; 84155; 84156; 84165; 84300; 84550; 85007; 85025; 85027; 85045; 85379; 85384; 85610; 85652; 85730; 86038; 86141; 86160; 86225; 86235; 86256; 86308; 86334; 86644; 86645; 86664; 86703; 86780; 86803; 87040; 87086; 87340; 90935; 93970; 96361; 96365; 99152; C1894; G0378; J0692; J1100; J1642; J2405; J3430; J3490; P9047